=== PATIENT | female | born 1970 | race Caucasian/White ===

== ENCOUNTER → 2018-02-10 16:40 | Outpatient (CLI) | payer OTHER, SELFPAY ==
--- NOTE | 2018-02-10 16:42 | RAD_ITS ---
STUDY: X-RAY - ABDOMEN/PELVIS REASON FOR EXAM: Female, 48 years old. Abdominal pain for a couple weeks. TECHNIQUE: 2 views abdomen pelvis obtained, supine and upright projections. COMPARISON: None available. FINDINGS: Normal visualized lung bases. There is a nonobstructive nonspecific intestinal bowel gas pattern with no air-filled dilated small bowel loop, abnormal air-fluid level or findings of free intraperitoneal air identified including AP upright abdomen/pelvis projection. The visualized liver, spleen and kidneys are grossly normal in size and morphology. Tiny round smooth margin 0.27 cm diameter calcification is seen just lateral to the L1 right transverse process, may represent cholelithiasis or vascular calcification. Just lateral to the L3 right transverse process is an approximate 0.46 x 0.26 cm calcification. T-shaped IUD noted lower pelvis slightly left of midline. Normal appearing soft tissue structures. Normal visualized osseous structures. RAD/Abd Inc Decub and/or Erect IMPRESSION: Nonobstructed nonspecific visualized intestinal gas pattern. Tiny calcifications right lateral to the L1 right transverse process within the right upper quadrant, may represent cholelithiasis or vascular calcification. Clinical correlation recommended. L3 right transverse process as described, cannot exclude nephrolithiasis/ureterolithiasis versus vascular calcification without clinical correlation. Small IUD is described. Electronically Signed: Herbie Palma, at 16:49 EDT Tel , Service support ,
== END ==
PROVIDERS: Family Provider Family Medicine; PCP Family Medicine; Visit Provider Family Medicine
DX: R10.30 Lower abdominal pain, unspecified (principal)
CPT/HCPCS: 74019

== ENCOUNTER → 2018-02-14 11:17 | Outpatient (CLI) | payer OTHER, SELFPAY ==
--- NOTE | 2018-02-14 10:45 | EMB_PTH ---
PATIENT: KIMMY TODD LOC: [facility]#:[id number] AGE/SX: 55/F ROOM: RE02/14/[address]: Dr. Kerri Kearney MD : 1970 BED: DIS: SPEC #: [id number] RECD: 02/14/18 12:14 STATUS: ROMEL HOLLYOneil #: [id number] KAYCEE: 02/14/18 10:[address]: Kerri Acosta DEPT: SURGICAL PATHOLOGY RECD BY: Alirio Rinaldi ENTERED: 02/14/18 12:17 SP TYPE: ENDOM BX/C ROBYN DR: Dr. Caitlin Eduardo MD Tissues: Endometrium, NOS Procedures: Surgery Specimen Level IV HEADER OPERATION: EMBX PRE-OP DIAGNOSIS: AULara, LMP 02/06/18, ParaGard TISSUE SUBMITTED: EMBX MICROSCOPIC DIAGNOSIS Endometrial biopsy: Mildly disordered proliferative endometrium. Chronic endometritis. Fragments of benign ecto- and endocervical epithelium with acute and chronic inflammation and squamous metaplasia. ANKUR:ashley 02/17/18 MICROSCOPIC DESCRIPTION Slides are reviewed. GROSS DESCRIPTION Received in fixative is one container labeled with the patient's name and designated EM biopsy. The specimen consists of multiple fragments of hemorrhagic soft tissue that in aggregate measure 2.5 x 1 x 0.1 cm. The specimen is totally submitted in one cassette. / ANKUR:ashley 02/14/18 TC:5 CPT: 12920
== END ==
PROVIDERS: Family Provider Family Medicine; PCP Family Medicine; Visit Provider Obstetrics & Gynecology
DX: N93.9 Abnormal uterine and vaginal bleeding, unspecified (principal)
CPT/HCPCS: 88305

== ENCOUNTER → 2018-10-16 16:45 | Outpatient (CLI) | payer OTHER, SELFPAY ==
[2018-10-22 14:22] LABS: HPV APTIMA, High Risk Negative (Negative)
--- OUTSIDE RECORDS SUMMARY | 2018-12-12 06:32 | XMS RPT_ITS ---
:1970 Author Organization [facility] Care Team Providers Name Role Phone Caitlin Eduardo Attending Unavailable Caitlin Eduardo Referring Unavailable Caitlin Eduardo Primary Care Unavailable Caitlin Eduardo Attending Unavailable Caitlin Eduardo Referring Unavailable Caitlin Eduardo Primary Care Unavailable Kerri Amaya Attending Unavailable Caitlin Eduardo Primary Care Unavailable Kerri Amaya Attending Unavailable PROBLEMS PROBLEMS DATE TYPE CONDITION / CODE ATTENDING STATUS SOURCE 10/17/2018 Unknown Z12.4 - Martha Amaya Eugeen Encounter for summer screening for Hospital malignant Repository neoplasm of cervix / Z12.4(ICD-10) 12/10/2017 Unknown M79.604 - Pain Caitlin Eduardo Active [place] in right leg / Community M79.604(ICD-10) Hospital Repository PROCEDURES PROCEDURES No Procedure Records FoundRESULTS RESULTS PAP IG HPV APTIMA Collected: 10/16/2018 Status: F Source: [place] 16/18,45 4:45 PM [facility] REPOSITORY Order Comment: CYTOLOGY INFORMATION: - CLINICAL INFORMATION: - DATE LMP/MENOPAUSE: 10/02/18 LMP - COLLECTION VIAL: Thin Prep Vial - LETTER CARRIER SOURCE: CERVICAL/ENDOCERVICAL - COLLECTION TECHNIQUE: BRUSH/SPATULA Specimen Comment: [id number] Specimen Comment: Source.............Cervix;Endocervix Specimen Comment: LMP / Prev Treat...[id number] Specimen Comment: No. of containers..01 ThinPrep Vial TYPE CODE TESTS RESULT OUT OF RANGE REFERENCE UNITS LAB L7400.0800 . Normal DIAGN Comment Result Comment: NEGATIVE FOR INTRAEPITHELIAL LESION AND MALIGNANCY. THIS SPECIMEN WAS RESCREENED PART OF OUR KETTLE HAND PROGRAM. LAB L7400.0900 . Normal ADEQ Comment Result Comment: Satisfactory for evaluation. Endocervical and/or squamous metaplastic cells (endocervical component) are present. LAB L7400.1400 . Normal PERFORM Comment Result Comment: Makayla Banegas, Sales Consultant (ASCP) LAB L7400.1500 . Normal QC Comment REV Result Comment: Arelis Rangel, Supervisory Sales Consultant (ASCP) LAB L7400.2575 . Normal TEST METHOD Comment Result Comment: This liquid based ThinPrep(R) pap test was screened with the use of an image guided system. LAB L7400.2600 . Normal . COMM LAB L7400.2700 . Normal PAPSMR Comment Result Comment: The Pap smear is a screening test designed to aid in the detection of premalignant and malignant conditions of the uterine cervix. It is not a diagnostic procedure and should not be used as the sole means of detecting cervical cancer. Both false-positive and false-negative reports do occur. LAB L7400.2760 Negative Normal HPV APTIMA, Negative HR Result Comment: This test detects fourteen high-risk HPV types (16/18/31/33/35/39/45/ 51/52/56/58/59/66/68) without differentiation. Performed at: [address] [id number] Counterintelligence Specialist: Jazlyn Kaur MD, Phone: [phone] Performed at: =G - [facility] [place] [address] [id number] Counterintelligence Specialist: Jazlyn Kaur MD, Phone: [phone] Performed By: #### L7400.0280 #### [facility] (refer to report for specific site) refer to report for address and phone number PROGRESS Observed: 09/15/2018 Status: COMPLETED Source: [place] 6:55 PM [facility] REPOSITORY HNO ID: [id number] Author: Samina (Porter) Diamond Service: (none) Author Type: Nurse Practitioner Type: Progress Notes Filed: 09/15/2018 6:57 PM Note Text: This note was created using [email or web address]. Subjective Mirna Todd is a 48 year old female. The history is provided by the patient. Sore Throat This is a new problem. Episode onset: several weeks. The problem has been gradually worsening. Neither side of throat is experiencing more pain than the other. There has been no fever. Associated symptoms include swollen glands (tender on left side). Pertinent negatives include no congestion, coughing, ear pain or hoarse voice. She has had no exposure to strep. She has tried NSAIDs (claritin) for the symptoms. The treatment provided no relief. Review of Systems Constitutional: Negative for chills and fever. HENT: Positive for postnasal drip and sore throat. Negative for congestion, ear pain and hoarse voice. Respiratory: Negative for cough. Cardiovascular: Negative for chest pain. Allergic/Immunologic: Negative for immunocompromised state. Hematological: Positive for adenopathy (tender on left side). Objective BP 110/70 Pulse 74 Temp 36.8 ?C (98.2 ?F) (Tympanic) Resp 16 Wt 61.7 kg (136 lb) Physical Exam Constitutional: She is oriented to person, place, and time. HENT: Right Ear: Tympanic membrane and ear canal normal. Left Ear: Tympanic membrane and ear canal normal. Nose: Nose normal. Mouth/Throat: Uvula is midline and mucous membranes are normal. Posterior oropharyngeal erythema (mild with cobblestoning) present. Cardiovascular: Normal rate, regular rhythm and normal heart sounds. Pulmonary/Chest: Effort normal and breath sounds normal. Lymphadenopathy: She has no cervical adenopathy. Neurological: She is alert and oriented to person, place, and time. Skin: Skin is warm and dry. Nursing note and vitals reviewed. Assessment and Plan 1. Sore throat Negative rapid test. Discussed symptoms likely allergy/environmental due to length of time. Continue claritin, add on Nasacort. If still no improvement in 1-2 weeks, see PCP for further evaluation. Warm salt water gargles, throat lozenges/sprays, Increased fluids, rest. Pt in agreement, verbalized understanding. - RAPID STREP TEST B/O PROGRESS Observed: 09/15/2018 Status: COMPLETED Source: [place] 6:48 PM [facility] REPOSITORY HNO ID: [id number] Author: aSmina Dobson) Diamond Service: (none) Author Type: Nurse Practitioner Type: Progress Notes Filed: 09/15/2018 6:57 PM Note Text: This note was created using [email or web address]. Subjective Mirna Todd is a 48 year old female. The history is provided by the patient. Sore Throat This is a new problem. Episode onset: 2-3 weeks. There has been no fever. Associated symptoms include swollen glands. Pertinent negatives include no congestion, coughing or ear pain. She has tried NSAIDs (claritin) for the symptoms. Review of Systems Constitutional: Negative for chills and fever. HENT: Positive for sore throat. Negative for congestion and ear pain. Respiratory: Negative for cough. Cardiovascular: Negative for chest pain. Allergic/Immunologic: Negative for immunocompromised state. Hematological: Negative for adenopathy. Objective BP 110/70 Pulse 74 Temp 36.8 ?C (98.2 ?F) (Tympanic) Resp 16 Wt 61.7 kg (136 lb) Physical Exam Assessment and Plan CNOV Observed: 09/15/2018 Status: COMPLETED Source: [place] 6:30 PM [facility] REPOSITORY Office Visit ([facility]) PEREZMIRNA ([id number]) 1970 F Date Time Provider Department 09/15/18 6:30 PM SAMINA FIELDS (PORTER) [facility] During your visit today, we recorded the following information about you: Temperature Pulse Respiration Blood pressure 98.2 degrees 74/minute 16/minute 110/70 Weight 61.7 kg Samina Fields APRN.CNP 09/15/2018 6:57 PM Signed This note was created using [email or web address]. Ramses Todd is a 48 year old female. The history is provided by the patient. Sore Throat This is a new problem. Episode onset: 2-3 weeks. There has been no fever. Associated symptoms include swollen glands. Pertinent negatives include no congestion, coughing or ear pain. She has tried NSAIDs (claritin) for the symptoms. Review of Systems Constitutional: Negative for chills and fever. HENT: Positive for sore throat. Negative for congestion and ear pain. Respiratory: Negative for cough. Cardiovascular: Negative for chest pain. Allergic/Immunologic: Negative for immunocompromised state. Hematological: Negative for adenopathy. Objective BP 110/70 Pulse 74 Temp 36.8 ?C (98.2 ?F) (Tympanic) Resp 16 Wt 61.7 kg (136 lb) Physical Exam Assessment and Plan Samina Fields APRN.CNP 09/15/2018 6:57 PM Signed This note was created using Cognovantter. Ramses Todd is a 48 year old female. The history is provided by the patient. Sore Throat This is a new problem. Episode onset: several weeks. The problem has been gradually worsening. Neither side of throat is experiencing more pain than the other. There has been no fever. Associated symptoms include swollen glands (tender on left side). Pertinent negatives include no congestion, coughing, ear pain or hoarse voice. She has had no exposure to strep. She has tried NSAIDs (claritin) for the symptoms. The treatment provided no relief. Review of Systems Constitutional: Negative for chills and fever. HENT: Positive for postnasal drip and sore throat. Negative for congestion, ear pain and hoarse voice. Respiratory: Negative for cough. Cardiovascular: Negative for chest pain. Allergic/Immunologic: Negative for immunocompromised state. Hematological: Positive for adenopathy (tender on left side). Objective BP 110/70 Pulse 74 Temp 36.8 ?C (98.2 ?F) (Tympanic) Resp 16 Wt 61.7 kg (136 lb) Physical Exam Constitutional: She is oriented to person, place, and time. HENT: Right Ear: Tympanic membrane and ear canal normal. Left Ear: Tympanic membrane and ear canal normal. Nose: Nose normal. Mouth/Throat: Uvula is midline and mucous membranes are normal. Posterior oropharyngeal erythema (mild with cobblestoning) present. Cardiovascular: Normal rate, regular rhythm and normal heart sounds. Pulmonary/Chest: Effort normal and breath sounds normal. Lymphadenopathy: She has no cervical adenopathy. Neurological: She is alert and oriented to person, place, and time. Skin: Skin is warm and dry. Nursing note and vitals reviewed. Assessment and Plan 1. Sore throat Negative rapid test. Discussed symptoms likely allergy/environmental due to length of time. Continue claritin, add on Nasacort. If still no improvement in 1-2 weeks, see PCP for further evaluation. Warm salt water gargles, throat lozenges/sprays, Increased fluids, rest. Pt in agreement, verbalized understanding. - RAPID STREP TEST B/O Referring Provider: SELF [200] Allergies As of Date: 09/15/2018 (No Known Allergies) Date Reviewed: 09/15/2018 Reviewed by: Samina Fields - Fully Assessed Reason for Visit: Sore Throat [200] Cmt: x 2 weeks using loratidine, left gland pain x today Primary Visit Diagnosis:Sore throat [J02.9] Order(s):RAPID STREP TEST B/O [8176319] Order #: [id number] Prescriptions as of 09/15/2018 Sig: PROGESTERONE MICRONIZED ORAL Take by mouth. PAROXETINE 20 MG TABLET Take 10 mg by mouth once carlo* CYCLOBENZAPRINE 10 MG TABLET Take 1 tablet by mouth three * Patient not taking: Reported on 09/15/2018 Problem List As Of Date 09/15/2018 Noted Resolved Cervico-occipital neuralgia of the right side [*INVALID FOR* Encounter Status:Closed by DIAMOND RAZA.SAMINA BUENROSTRO on 09/15/18 ENDOMETRIAL BX/CURETTINGS Observed: 02/14/2018 Status: F Source: [place] 10:45 AM [facility] REPOSITORY Patient: MIRNA TODD : 1970 (48/F) Acct Num: [id number] Phys: Jose Luis CUEVAS,Summer Unit Num: [id number] Loc: [place] Specimen: [id number] Received: 02/14/18 - 1214 Spec Type: ENDOM BX/C TISSUES TISSUES: Endometrium, NOS GROSS DESCRIPTION Received in fixative is one container labeled with the patient's name and designated EM biopsy. The specimen consists of multiple fragments of hemorrhagic soft tissue that in aggregate measure 2.5 x 1 x 0.1 cm. The specimen is totally submitted in one cassette. / SJ:ashley 02/14/18 TC:5 CPT: 52256 HEADER OPERATION: EMBX PRE-OP DIAGNOSIS: AUB, LMP 02/06/18, ParaGard TISSUE SUBMITTED: EMBX MICROSCOPIC DESCRIPTION Slides are reviewed. MICROSCOPIC DIAGNOSIS Endometrial biopsy: Mildly disordered proliferative endometrium. Chronic endometritis. Fragments of benign ecto- and endocervical epithelium with acute and chronic inflammation and squamous metaplasia. SJ:ashley 02/17/18 Signed Byron Carlson 02/17/18 <signature on file> Performed By: #### PEMB #### [facility] [address] [place], [address] ABD INC DECUB Observed: 02/10/2018 Status: F Source: [place] AND/OR ERECT 4:42 PM [facility] REPOSITORY [facility] Imaging Services [address] [place] [address] Abd Inc Decub and/or Erect MR#: [id number] Acct: [id number] Name: MIRNA TODD Rep #: [id number] : 1970 F 48 From: Herbie Palma MD PCP: Caitlin Eduardo MD Status: REG CLI Study: Abd Inc Decub and/or Erect Date of Exam: 02/10/18 Exam# [id number] Ordering Dr: Caitlin Eduardo MD STUDY: X-RAY - ABDOMEN/PELVIS REASON FOR EXAM: Female, 48 years old. Abdominal pain for a couple weeks. TECHNIQUE: 2 views abdomen pelvis obtained, supine and upright projections. COMPARISON: None available. FINDINGS: Normal visualized lung bases. There is a nonobstructive nonspecific intestinal bowel gas pattern with no air-filled dilated small bowel loop, abnormal air-fluid level or findings of free intraperitoneal air identified including AP upright abdomen/pelvis projection. The visualized liver, spleen and kidneys are grossly normal in size and morphology. Tiny round smooth margin 0.27 cm diameter calcification is seen just lateral to the L1 right transverse process, may represent cholelithiasis or vascular calcification. Just lateral to the L3 right transverse process is an approximate 0.46 x 0.26 cm calcification. T-shaped IUD noted lower pelvis slightly left of midline. Normal appearing soft tissue structures. Normal visualized osseous structures. RAD/Abd Inc Decub and/or Erect IMPRESSION: Nonobstructed nonspecific visualized intestinal gas pattern. Tiny calcifications right lateral to the L1 right transverse process within the right upper quadrant, may represent cholelithiasis or vascular calcification. Clinical correlation recommended. L3 right transverse process as described, cannot exclude nephrolithiasis/ureterolithiasis versus vascular calcification without clinical correlation. Small IUD is described. Electronically Signed: Herbie Palma, at 16:49 EDT Tel , Service support , CC: Caitlin Eduardo MD Coat Cutter: Signed TIBIA AND FIBULA Observed: 12/10/2017 Status: F Source: [place] 2 VIEWS 4:07 PM [facility] REPOSITORY [facility] Imaging Services [address] [place] [address] Tibia AND Fibula 2 Views MR#: [id number] Acct: [id number] Name: MIRNA TODD Rep #: [id number] : 1970 F 47 From: Yosef Ridley DO PCP: Alesha CUEVAS,Caitlin Status: REG CLI Study: Tibia AND Fibula 2 Views Date of Exam: 12/10/17 Exam# [id number] Ordering Dr: Caitlin Eduardo MD STUDY: X-RAY - RIGHT TIBIA AND FIBULA REASON FOR EXAM: Female, 47 years old. Pain TECHNIQUE: 2 view(s) of the tibia and fibula were obtained. COMPARISON: None. FINDINGS: Normal visualized tibia. Normal visualized fibula. The soft tissue structures are unremarkable. RAD/Tibia AND Fibula 2 Views IMPRESSION: Normal x-ray examination of the tibia and fibula. Electronically Signed: Yosef Ridley DO at 21:33 EST Tel [phone], Service support , CC: Caitlin Eduardo MD Coat Cutter: Signed ALLERGIES ALLERGIES DATE TYPE / CODE NAME / CODE REACTION SEVERITY SOURCE 07/18/2014 Drug No Known Unknown [facility] Allergy/416 Allergies/E13350 Hospital 846043(SNOM 0388(RXNORM) Repository ED CT) Drug NO KNOWN [facility] Class/29830 ALLERGIES [facility] 1003(SNOMED Repository CT) ENCOUNTERS ENCOUNTERS ADMIT/DISCHARGE ACCOUNT ADMITTING ENCOUNTER LOCATION SOURCE NUMBER CLASS 10/16/2018 [id number] [facility] ing:LABSPEC Repository 09/15/2018/09/17/20 [id number] [address]ulatory [address] Repository 02/14/2018 [id number] [facility] ing:US Repository 02/10/2018 [id number] [facility] ing:MTRAD Repository 12/10/2017 [id number] [facility] ing:MTRAD Repository PAYERS PAYERS ENCOUNTER GUARANTOR PAYER SUBSCRIBER SOURCE 10/16/2018 MIRNA (KIMMY) Primary MIRNA (KIMMY) [place] [id number] Insurance:AETNAPolicy A MEININGERDOB: [facility] [place]: [id number] [id number] Repository 29313Mnt: (330) Date:[id number] [phone] (HP) [id number] MASSEY [address]BR: 10/16/2018 Secondary NOT GIVENUNK [place] Insurance:SELF PAY [facility] Number: Effective Repository Date:2018-10-16 02/14/2018 MIRNA A Primary MIRNA A [place] [id number] Insurance:AETNAPolicy MEININGERDOB: [facility] Number: [id number] [id number] Repository [address]Ghe: (330) Date:8415-89-61PW [phone] (HP) [id number] CHARISSA JOSHUA [address]CI: 02/14/2018 Secondary NOT GIVENUNK [place] Insurance:SELF PAY [facility] Number: Effective Repository Date:2018-02-10 02/10/2018 MIRNA A Primary MIRNA A [place] [id number] Insurance:AETNAPolicy MEININGERDOB: [facility] Number: [id number] [id number] Repository [address]Rzn: (330) Date:2801-64-11MX [phone] (HP) [id number] CHARISSA JOSHUA [address]SQ: 02/10/2018 Secondary NOT GIVENUNK [place] Insurance:SELF PAY [facility] Number: Effective Repository Date:2018-02-10 12/10/2017 Mirna A Primary KIMMY A [place] [id number] Insurance:AETNAPolicy MEININGERDOB: [facility] Number: [id number], [place] [id number] Repository [address]Lms: (330) Date:[id number] [phone] (HP) [id number] CHARISSA JOSHUA [address]IY: 12/10/2017 Secondary NOT GIVENUNK [place] Insurance:[facility]LF [facility]Y [facility]: Effective Repository Date:2017-12-10
== END ==
PROVIDERS: Visit Provider Obstetrics & Gynecology
DX: Z12.4 Encounter for screening for malignant neoplasm of cervix (principal)
CPT/HCPCS: 87624; 88175; G0145

== ENCOUNTER → 2019-10-29 14:28 | Outpatient (CLI) | payer OTHER, SELFPAY ==
--- NOTE | 2019-10-29 14:36 | BI_ITS ---
MAMMOGRAPHY - BILATERAL SCREENING REASON FOR EXAM: Female, 49 years old. Routine annual screening examination. PERTINENT HISTORY: Non-contributory. TECHNIQUE: Digital bilateral breast leena (3D mammographic acquisition) in the CC and MLO projections. 2-D mediolateral oblique (MLO) and craniocaudad (CC) views of both breasts were obtained. CAD: Full Field Digital Mammography with Computer Added Detection was performed. COMPARISON: Comparison is made with prior examination dated August 29, 2016 and June 24, 2012. FINDINGS: Breast Composition: The breasts are extremely dense, which lowers the sensitivity of mammography. There are no dominant masses or suspicious calcifications. No other significant abnormalities are identified. There has been no significant change since the prior study. BI/SCREEN MAMM (CAD) W/LEENA BILAT IMPRESSION: Stable bilateral screening mammogram. Yearly follow-up mammogram recommended. (A) ASSESSMENT CATEGORY: BIRADS Category 1: Negative. A letter regarding these results will be sent to the patient by the facility within 30 days. Approximately 10% of breast cancers are not detected by mammography. A normal mammogram should not delay biopsy of a clinically suspicious abnormality. [id number] Electronically Signed: Duy Fiore, at 15:40 EST , Service support ,
== END ==
PROVIDERS: Referring Provider Obstetrics & Gynecology; Visit Provider Obstetrics & Gynecology
DX: Z12.31 Encounter for screening mammogram for malignant neoplasm of breast (principal)
CPT/HCPCS: 77063; 77067

== ENCOUNTER → 2020-12-15 12:36 | Outpatient (CLI) | payer OTHER, SELFPAY ==
--- NOTE | 2020-12-15 12:38 | BI_ITS ---
MAMMOGRAPHY - BILATERAL SCREENING REASON FOR EXAM: Female, 50 years old. Routine annual screening examination. PERTINENT HISTORY: Non-contributory. TECHNIQUE: Digital bilateral breast leena (3D mammographic acquisition) in the CC and MLO projections. 2-D mediolateral oblique (MLO) and craniocaudad (CC) views of both breasts were obtained. CAD: Full Field Digital Mammography with Computer Added Detection was performed. COMPARISON: Comparison is made with prior study dated 10/29/2019 and 08/29/2016. FINDINGS: Breast Composition: The breasts are extremely dense, which lowers the sensitivity of mammography. There are no dominant masses or suspicious calcifications. No other significant abnormalities are identified. There has been no significant change since the prior study. BI/SCRN MAMM (CAD)W/LEENA BILAT IMPRESSION: Stable bilateral screening mammogram. Yearly follow-up mammogram recommended. (A) ASSESSMENT CATEGORY: BIRADS Category 1: Negative. A letter regarding these results will be sent to the patient by the facility within 30 days. Approximately 10% of breast cancers are not detected by mammography. A normal mammogram should not delay biopsy of a clinically suspicious abnormality. [id number] Electronically Signed: Duy Fiore MD at 13:26 EST , Service support ,
== END ==
PROVIDERS: PCP Family Medicine; Referring Provider Family Medicine; Visit Provider Family Medicine
DX: Z00.00 Encounter for general adult medical examination without abnormal findings (principal); Z12.31 Encounter for screening mammogram for malignant neoplasm of breast
CPT/HCPCS: 77063; 77067

== ENCOUNTER → 2021-11-03 08:59 | Outpatient (CLI) | payer OTHER, SELFPAY ==
--- NOTE | 2021-11-03 09:22 | BI_ITS ---
MAMMOGRAPHY - BILATERAL DIAGNOSTIC REASON FOR EXAM: Female, 51 years old. Questionable palpable abnormality in the left axillary region. PERTINENT HISTORY: Non-contributory. TECHNIQUE: Digital bilateral breast gyae (3D mammographic acquisition) in the CC and MLO projections. 2-D mediolateral oblique (MLO) and craniocaudad (CC) views of both breasts were obtained. CAD: Full Field Digital Mammography with Computer Added Detection was performed. COMPARISON: Comparison is made with prior study dated 12/15/2020 and 10/29/2019. FINDINGS: Breast Composition: The breasts are extremely dense, which lowers the sensitivity of mammography. There are no dominant masses or suspicious calcifications. No other significant abnormalities are identified. There has been no significant change since the prior study. BI/DIAG MAMM W/CAD, BILAT IMPRESSION: Stable bilateral diagnostic mammogram. With the patient''s history of a palpable lump in the left axillary region, correlation with ultrasound is recommended. ASSESSMENT CATEGORY: BIRADS Category 0: Incomplete. Need additional imaging evaluation. A letter regarding these results will be sent to the patient by the facility within 30 days. Approximately 10% of breast cancers are not detected by mammography. A normal mammogram should not delay biopsy of a clinically suspicious abnormality. Electronically Signed: Duy Fiore MD at 15:00 EST , Service support ,
--- NOTE | 2021-11-03 10:55 | US_ITS ---
STUDY: ULTRASOUND BREAST - RIGHT REASON FOR EXAM: Female, 51 years old. Right axillary lump. TECHNIQUE: Axial and longitudinal images of the RIGHT breast were performed with a high resolution ultrasound transducer. # OF IMAGES: 29 COMPARISON: Comparison is made with prior mammogram done earlier in the day. FINDINGS: RIGHT Breast: The right axillary region was examined by ultrasound. There are 3 small benign-appearing lymph nodes. The larger measures 1 cm x 0.5 cm x 0.3 cm. US/Breast Limited Unilateral IMPRESSION: There are 3 small benign-appearing lymph nodes in the right axilla. ASSESSMENT CATEGORY: BIRADS Category 2: Benign. A letter regarding these results will be sent to the patient by the facility within 30 days. Electronically Signed: Duy Fiore MD at 13:24 EST , Service support ,
== END ==
PROVIDERS: PCP Family Medicine; Referring Provider Nurse Practitioner Family; Visit Provider Nurse Practitioner Family
DX: R59.0 Localized enlarged lymph nodes (principal)
CPT/HCPCS: 76642; 77062; 77066; G0279

== ENCOUNTER 2022-02-16 16:15 | Outpatient (CLI) | payer OTHER, SELFPAY ==
[2022-02-27 16:09] LABS: HPV APTIMA, High Risk Negative (Negative)
== END 2022-02-16 23:59 | disposition home or self-care (01) ==
LOC: LABSPEC 16:16
PROVIDERS: PCP Family Medicine; Visit Provider Obstetrics & Gynecology
DX: Z12.4 Encounter for screening for malignant neoplasm of cervix (principal)
CPT/HCPCS: 87624; 88175; G0145

== ENCOUNTER 2022-05-12 21:24 | Emergency (ER) | payer OTHER, SELFPAY ==
[2022-05-12 21:24] VITALS: BP 147/80; PULSE 88; RESP 16; TEMP 36.6; O2SAT 100; BMI 20.9
--- NOTE | 2022-05-12 21:51 | EX.ED.DYSGE1 ---
HPI History of Present Illness Chief Complaint: Foreign Body Informant: patient Onset/Context/Timing Onset: Today Context: Sudden Onset Timing: Continuous Quality: Irritation Location: Throat Worsened by: Anxiety Relieved by: Nothing Narrative Narrative: Patient presents with possible aspiration that occurred tonight. Patient states she was eating corn on the cob and accidentally inhaled while she was eating. Patient thinks a piece of corn went into her trachea. Patient states she has some irritation in her throat. Patient states her voice became hoarse. Patient states her anxiety made her symptoms worse. Patient states nothing makes it better. Patient admits to a cough. Patient states she is starting to cough up some mucus. Patient denies any fevers or chills. Patient denies any chest pain or shortness of breath. [facility] Medical History (Updated 05/12/22 @ 22:[address] Mark Cedillo DO) Anxiety Headache, migraine Medical History no medical history Home Medications NK 05/12/22 [History Last Taken Unknown] Allergy/AdvReac Type Severity Reaction Status Date / Time No Known Allergies Allergy Verified 05/12/22 21:26 Surgical History no surgical history no surgical history Social History Smoking Status: Current every day smoker tobacco type: cigarettes ROS ROS ED Constitutional Constitutional ED: Denies chills or fever(s) Eyes Eyes: Denies blurry vision or change in vision ENT ENT ED: Reports sore throat; Denies rhinorrhea Cardiovascular Cardiovascular: Denies chest pain or palpitations Respiratory/Chest Respiratory/Chest: Reports cough; Denies dyspnea Gastrointestinal Gastrointestinal: Denies nausea or vomiting Genitourinary Genitourinary ED: Denies dysuria or hematuria Musculoskeletal Musculoskeletal: Denies back pain or neck pain Integumentary Denies abscess or rash Neurologic Neurologic: Denies headache(s) or weakness Psychiatric Psychiatric: Reports anxiety Allergic/Immunologic Allergic/Immunologic ED: Denies mouth swelling or urticaria EXAM Physical Exam Const Vital Signs: 05/12/22 21:24 05/12/22 21:37 Temperature 97.8 F Temperature Source Temporal Pulse Rate 88 Respiratory Rate 16 Respiratory Pattern Normal Blood Pressure 147/80 H Blood Pressure Mean 102 Pulse Ox 100 Oxygen Delivery Method Room Air Positive well nourished and well developed General Appearance ED: well developed HEENT Reports moist mucous membranes HEENT Narrative: Oropharynx is clear. Airway is patent. Neck supple and no JVD Resp normal respiratory effort and clear to auscultation bilaterally Cardio regular rate, regular rhythm and no murmurs GI normal to inspection, nondistended, normoactive bowel sounds and non-tender Palpation: soft Extremity normal to inspection General Extremety ED: Negative for edema or tenderness General Extremity: Negative for edema Neuro oriented x3, CN's II-XII intact bilaterally and no sensory deficits noted Sensorium / Orientation: alert Motor Exam: strength 5/5 throughout Psych mental status grossly normal Skin no rashes or lesions noted MDM MDM MDM Narrative Medical decision making narrative: PA and lateral chest x-ray was obtained. There are 3 views. On my interpretation, there is no acute infiltrate. There is no pneumothorax. Bony thorax is normal. There is no cardiomegaly. Radiologist also interpreted the x-ray and agrees. Patient is feeling better on reevaluation. Patient was advised of her findings. Patient was instructed to follow-up with her primary care physician in 5 to 7 days. Patient was instructed return if worse in any way. Patient understood and was agreeable with the plan. All questions were answered. Radiography Chest X-Ray - ED: 2 View, Read by ED Physician, Read by Radiologist and No Acute Disease Diagnostic Testing: Clinical Impression(s) from Imaging Studies Chest X-Ray 05/12/22 22:01 IMPRESSION: Normal x-ray examination of the chest. Electronically Signed: Alirio Erwin MD at 22:13 EDT Reading Location ID and State: [address] [place] [address] Tel , Service support , Discharge Plan Triage Chief Complaint: Foreign Body ED Provider: Mark Cedillo Dx/Rx/DC Orders Clinical Impression: Dysphagia Instructions: ED Dysphagia (Adult) Prescriptions: No Action NK Primary Care Provider: Caitlin Eduardo Referrals: Caitlin Eduardo MD [Primary Care Provider] - 5-7 Days Disposition Disposition: Home, Self Care
--- NOTE | 2022-05-12 22:01 | RAD_ITS ---
STUDY: X-RAY CHEST REASON FOR EXAM: Female, 52 years old. Cough TECHNIQUE: PA and lateral views of the chest. COMPARISON: 07/18/2014 FINDINGS: The lungs are clear and expanded. There is no demonstrated pleural abnormality. Normal size heart. Normal mediastinum and virgen. Normal visualized pulmonary arteries. Normal visualized aortic arch and descending thoracic aorta. Normal visualized thoracic spine. Normal visualized ribs, clavicles, and shoulders. There is no demonstrated abnormality of the visualized soft tissue structures of the upper abdomen. RAD/Chest PA and Lateral IMPRESSION: Normal x-ray examination of the chest. Electronically Signed: Alirio Erwin MD at 22:13 EDT ,
[2022-05-12 22:56] VITALS: BP 132/74; PULSE 74; RESP 18; O2SAT 98
== END 2022-05-12 22:56 | disposition home or self-care (01) ==
PROVIDERS: Emergency Provider Emergency Medicine; PCP Family Medicine; Visit Provider Emergency Medicine
DX: R13.10 Dysphagia, unspecified (principal); F17.210 Nicotine dependence, cigarettes, uncomplicated
CPT/HCPCS: 71046; 99282

== ENCOUNTER 2023-01-10 22:55 | Emergency (ER) | payer OTHER, SELFPAY ==
[2023-01-10 22:56] VITALS: BP 143/90; PULSE 110; RESP 18; TEMP 36.3; O2SAT 100; BMI 21.7
--- NOTE | 2023-01-10 23:05 | EKG12_ITS ---
Test Reason : PALPATATIONS Blood Pressure : / mmHG Vent. Rate : 084 BPM Atrial Rate : 084 BPM P-R Int : 142 ms QRS Dur : 068 ms QT Int : 378 ms P-R-T Axes : 076 078 076 degrees QTc Int : 446 ms Normal sinus rhythm Normal ECG Confirmed by DONNA CUEVAS, HAYLEY ([id number]), associate entertainment editor SUYAPA IBARRA ([id number]) on 01/14/2023 11:27:21 AM Referred By: Confirmed By:HAYLEY THOMPSON MD
--- NOTE | 2023-01-10 23:27 | EDS_ITS ---
HPI History of Present Illness Chief Complaint: Palpitations Narrative Narrative: Patient is a 52-year-old female with past medical history of anxiety. She states she has been dealing with a cold for the past 5 to 7 days. She states that she was seen at urgent care and was tested for strep and also had a grandchild who was sick and was tested for COVID influenza RSV which were all negative. She states this evening she decided to take melatonin and a Vicks nighttime cough and cold medication. She states after doing this she began to feel her heart was racing which then she symptoms worse and with concern she could be having an abnormal heart rhythm or heart attack presents to the ER for evaluation. Patient denies any other ingestions than the [id number] cold and sleep medications [facility] Medical History (Updated 01/10/23 @ 23:[address] Bam Winters DO) Anxiety Headache, migraine Home Medications NK 05/12/22 [History Last Taken Unknown] Allergy/AdvReac Type Severity Reaction Status Date / Time No Known Allergies Allergy Verified 01/10/23 22:58 Social History Smoking Status: Current every day smoker tobacco type: cigarettes ROS ROS ED Constitutional Constitutional ED: Denies chills or fever(s) ENT ENT ED: Reports rhinorrhea and sore throat Cardiovascular Cardiovascular: Reports palpitations and racing heartbeat; Denies chest pain Respiratory/Chest Respiratory/Chest: Reports cough; Denies dyspnea Gastrointestinal Gastrointestinal: Denies abdominal pain, diarrhea, nausea or vomiting Genitourinary Genitourinary ED: Denies dysuria Musculoskeletal Musculoskeletal: Reports myalgias Integumentary Denies rash Neurologic Neurologic: Reports headache(s) Psychiatric Psychiatric: Reports anxiety; Denies suicidal ideation or suicidal thoughts Hematologic/Lymphatic Hematologic/Lymphatic: Denies easy bleeding or easy bruising EXAM Physical Exam Const Vital Signs: 01/10/23 22:56 Temperature 97.4 F L Temperature Source Temporal Pulse Rate 110 H Respiratory Rate 18 Blood Pressure 143/90 H Blood Pressure Mean 107 Pulse Ox 100 Oxygen Delivery Method Room Air Positive well nourished and well developed General Appearance ED: well developed HEENT Reports moist mucous membranes HEENT Narrative: There is cobblestoning the posterior pharynx consistent with sinus drainage without oral lesions tongue or lip swelling airway edema or compromise. No secondary changes to suggest infection in the posterior pharynx Eyes PERRL and EOMs intact bilaterally Neck supple Neck Narrative: Positive anterior cervical lymphadenopathy noted Resp normal respiratory effort and clear to auscultation bilaterally Cardio regular rate and regular rhythm Rate: other Other Details: Radial pulses are plus 2 out of 4 bilaterally are equal and symmetric Extremity normal to inspection Extremity Narrative: No asymmetric edema no pitting edema negative Homans' sign bilaterally Neuro oriented x3, CN's II-XII intact bilaterally and no sensory deficits noted Sensorium / Orientation: alert Psych Psych Narrative: Patient has a nervous/anxious affect without homicidal or suicidal ideations Skin no rashes or lesions noted MDM MDM MDM Narrative Medical decision making narrative: Patient presented to the ER to slightly tachycardic but her EKG showed normal sinus rhythm at 84 after she was allowed to relax for a few minutes. She reported heart racing and palpitations but her exam and EKG displayed normal sinus rhythm without ectopy or dysrhythmia. The patient reports taking a sleep medication as well as cough and cold medication which typically has a stimulant such as dextromethorphan pseudoephedrine or phenylephrine to help with decongestion. I feel this is the main culprit of her sensation which was worsened by her anxiety. At this time vitals are stable and EKG does not show any type of acute changes. We discussed possible blood work and IV hydration to rule out underlying electrolyte or blood volume cause as the cause of her symptoms. However patient states she feels much better at this time knowing her EKG is normal and would like to be discharged. Therefore as patient has stable vitals without signs of acute cardiac injury or dysrhythmia she is otherwise safe for discharge Discharge Plan Triage Chief Complaint: Palpitations ED Provider: Bam Winters Dx/Rx/DC Orders Clinical Impression: Palpitations, Adverse drug reaction, Acute upper respiratory infection Prescriptions: No Action NK Primary Care Provider: Caitlin Eduardo Referrals: Caitlin Eduardo MD [Primary Care Provider] - Activity Restrictions/Additional Instructions: Please continue to keep yourself well-hydrated and return to the ER should you have any further concerns. I do feel that your symptoms tonight were related to the stimulant which is typically using cold medication to reduce congestion. Therefore please limit this use as this could precipitate further bouts of palpitations. Disposition Disposition: Home, Self Care
== END 2023-01-11 00:16 | disposition home or self-care (01) ==
PROVIDERS: Emergency Provider Emergency Medicine; PCP Family Medicine; Visit Provider Emergency Medicine
DX: R00.2 Palpitations (principal); T48.905A Adverse effect of unspecified agents primarily acting on the respiratory system, initial encounter; J06.9 Acute upper respiratory infection, unspecified; F17.210 Nicotine dependence, cigarettes, uncomplicated
CPT/HCPCS: 93005; 99282

== ENCOUNTER → 2023-05-03 | Outpatient (CLI) | payer OTHER, SELFPAY ==
--- NOTE | 2023-05-03 07:03 | BI_ITS ---
MAMMOGRAPHY - BILATERAL SCREENING REASON FOR EXAM: Female, 53 years old. Routine annual screening examination. PERTINENT HISTORY: Non-contributory. TECHNIQUE: Digital bilateral breast leena (3D mammographic acquisition) in the CC and MLO projections. 2-D mediolateral oblique (MLO) and craniocaudad (CC) views of both breasts were obtained. CAD: Full Field Digital Mammography with Computer Added Detection was performed. COMPARISON: Comparison is made with prior study dated November 03, 2021 and December 15, 2020. FINDINGS: Breast Composition: The breasts are extremely dense, which lowers the sensitivity of mammography. There are no dominant masses or suspicious calcifications. No other significant abnormalities are identified. There has been no significant change since the prior study. BI/SCRN MAMM (CAD)W/LEENA BILAT IMPRESSION: Stable bilateral screening mammogram. Yearly follow-up mammogram recommended. (A) ASSESSMENT CATEGORY: BIRADS Category 1: Negative. A letter regarding these results will be sent to the patient by the facility within 30 days. Approximately 10% of breast cancers are not detected by mammography. A normal mammogram should not delay biopsy of a clinically suspicious abnormality. [id number] Electronically Signed: Duy Fiore MD at 8:31 EDT ,
== END | disposition home or self-care (01) ==
LOC: OPBI 07:01
PROVIDERS: PCP Family Medicine; Referring Provider Family Medicine; Visit Provider Family Medicine
DX: Z12.31 Encounter for screening mammogram for malignant neoplasm of breast (principal)
CPT/HCPCS: 77063; 77067

== ENCOUNTER 2023-07-31 09:47 | Emergency (ER) | payer OTHER, SELFPAY ==
[2023-07-31 09:48] VITALS: BP 134/97; PULSE 116; RESP 16; TEMP 36.4; O2SAT 100; BMI 20.5
--- NOTE | 2023-07-31 09:58 | EKG12_ITS ---
Test Reason : CHEST PAIN Blood Pressure : / mmHG Vent. Rate : 084 BPM Atrial Rate : 084 BPM P-R Int : 128 ms QRS Dur : 070 ms QT Int : 356 ms P-R-T Axes : 073 082 066 degrees QTc Int : 420 ms Normal sinus rhythm Septal infarct , age undetermined Abnormal ECG Confirmed by DONNA CUEVAS, HAYLEY ([id number]), editor greeting card NEGRITA SUAREZ ([id number]) on 08/01/2023 1:11:52 PM Referred By: BERNADINE Confirmed By:HAYLEY THOMPSON MD
--- NOTE | 2023-07-31 09:59 | EDS_ITS ---
HPI History of Present Illness Chief Complaint: Chest Pain Narrative Narrative: 53-year-old female presenting with chest pain. She states this started last evening around 830. She describes it as a dull ache. Starts in the anterior chest and radiates to the left shoulder blade. Patient denies shortness of breath, lightheadedness. She had nausea last night. She is taken a couple doses of ibuprofen which seems to help with the pain but it is come back. Patient states has had the pain few more times today. Once at 3 AM and currently is having pain about 5/10 which is dull and aching. He had history. She denies any lung problems. Patient states he has not had any fevers or chills. Patient has no DVT/PE history or risk factors. [facility] Medical History Anxiety Headache, migraine Home Medications NK 05/12/22 [History Last Taken Unknown] Allergy/AdvReac Type Severity Reaction Status Date / Time No Known Allergies Allergy Verified 07/31/23 09:49 Social History Smoking Status: Current every day smoker tobacco type: cigarettes ROS ROS ED Constitutional Constitutional ED: Denies chills, fever(s) or sweats Eyes Eyes: Denies blurry vision or change in vision ENT ENT ED: Denies ear pain or sore throat Cardiovascular Cardiovascular: Reports chest pain; Denies palpitations or racing heartbeat Respiratory/Chest Respiratory/Chest: Denies cough, dyspnea or sputum Gastrointestinal Gastrointestinal: Reports nausea; Denies abdominal pain, constipation, diarrhea or vomiting Genitourinary Genitourinary ED: Denies dysuria, hematuria or urinary frequency Musculoskeletal Musculoskeletal: Denies arthralgias, myalgias or neck pain Integumentary Denies abscess, Abrasions or rash Neurologic Neurologic: Denies headache(s), paresthesias or weakness Psychiatric Psychiatric: Denies anxiety, depression, suicidal ideation or suicidal thoughts Endocrine Endocrinology: Denies polydipsia or polyuria EXAM Physical Exam Const Vital Signs: 07/31/23 09:48 07/31/23 10:24 07/31/23 12:33 Temperature 97.5 F L Temperature Source Temporal Pulse Rate 116 H 81 Respiratory Rate 16 16 Blood Pressure 134/97 H 129/74 H Blood Pressure Mean 109 92 Pulse Ox 100 97 Oxygen Delivery Method Room Air Room Air Room Air Positive well nourished General Appearance ED: NAD HEENT Reports moist mucous membranes normocephalic and atraumatic Eyes PERRL and EOMs intact bilaterally Chest Wall inspection of chest normal Chest Narrative: Producible chest wall pain. No pain with range of motion. Resp normal respiratory effort and clear to auscultation bilaterally Auscultation: Negative for rales, rhonchi or wheezes Cardio regular rhythm Rate: tachycardic GI normal to inspection, nondistended, normoactive bowel sounds Neuro oriented x3 and CN's II-XII intact bilaterally Sensorium / Orientation: awake and alert Motor Exam: strength 5/5 throughout Psych mental status grossly normal Skin no rashes or lesions noted MDM MDM MDM Narrative Medical decision making narrative: Patient presenting with chest pain since last evening. Is coming on a couple of times. She describes it as aching and radiating to her left shoulder blade from the center of her chest. There is no sharp pleuritic component. Patient low risk for PE however she is tachycardic and I cannot use the PERC rule. Includes acute coronary syndrome, pneumonia, PE, costochondritis, gastritis, pancreatitis, PE. D-dimer will be obtained. CBC will be obtained to assess white blood cell count, hemoglobin, platelets. BMP to assess renal function, electrolytes. To assess liver function. Lipase to assess for pancreatitis. High-sensitivity troponin rule out ischemia and dysrhythmia. Chest x-ray to rule out pneumonia. Medicated with nitroglycerin and given 325 mg of aspirin. EKG on my interpretation shows a normal sinus rhythm with a ventricular rate of 84 bpm without sign of ischemia or ectopy. CBC is unremarkable. BMP shows a nonspecific elevation in total bilirubin at 1.90 and direct bilirubin 8.37. Patient does not have any pain over the epigastrium or the right upper quadrant. STEMI troponin is less than 3 and delta troponin is 4. There is no significant interval change. Chest x-ray my interpretation shows no acute process. Patient on all findings. She stable for discharge. Return precautions were discussed. Impression: 1. Chest pain Lab Data Labs: Laboratory Results - last 24 hr 07/31/23 07/31/23 10:18 12:31 WBC 5.1 RBC 4.42 Hgb 13.9 Hct 42.4 MCV 95.9 MCH 31.4 MCHC 32.8 RDW Std Deviation 45.6 H RDW Coeff of Dandre 12.8 Plt Count 241 MPV 9.1 Immature Gran % (Auto) 0.400 Neut % (Auto) 60.9 Lymph % (Auto) 28.3 [place] % (Auto) 8.0 Eos % (Auto) 1.6 Baso % (Auto) 0.8 Absolute Neuts (auto) 3.1 Absolute Lymphs (auto) 1.45 Nucleated RBC % 0 D-Dimer Quant (PE/DVT) < 0.27 L Sodium 140 Potassium 4.2 Chloride 107 Carbon Dioxide 29.0 Anion Gap 4 L BUN 15 Creatinine 0.95 Estim Creat Clear Calc 62.28 Est GFR (MDRD) Af Amer 79 Est GFR (MDRD) Non-Af 65 BUN/Creatinine Ratio 15.8 Glucose 114 H Calcium 9.2 Total Bilirubin 1.90 H Direct Bilirubin 0.37 H AST 18 ALT 29 Alkaline Phosphatase 63 Troponin I High Sens < 3 L 4 Total Protein 7.2 Albumin 4.1 Globulin 3.1 Lipase 57 Radiography Diagnostic Testing: Clinical Impression(s) from Imaging Studies Chest X-Ray 07/31/23 10:40 IMPRESSION: Normal x-ray examination of the chest. Electronically Signed: Duy Fiore MD at 10:58 EDT , Discharge Plan Triage Chief Complaint: Chest Pain ED Provider: Aroldo Gordon Dx/Rx/DC Orders Instructions: ED Chest Pain, Noncardiac Prescriptions: No Action NK Primary Care Provider: Caitlin Eduardo Referrals: Caitlin Eduardo MD [Primary Care Provider] - Disposition Disposition: Home, Self Care Discharge Date/Time: 07/31/23 13:30
[2023-07-31 10:27] LABS: Absolute Lymphocyte Count 1.45 X10^3/uL (0.83-4.51); Absolute Neutrophil Count 3.1 X10^3/uL (2.0-7.7); Basophil# 0.04 X10^3/uL; Basophil% 0.8 % (0-1); Eosinophil# 0.08 X10^3/uL; Eosinophils% 1.6 % (0-5); Hematocrit 42.4 % (37-47); Hemoglobin 13.9 g/dL (12.0-15.0); Lymphocyte # 1.45 X10^3/ul (0.83-4.51); Lymphocyte % 28.3 % (19-41); Mean Corp Hgb Conc 32.8 g/dL (32-36); Mean Corpuscular Hgb 31.4 pg (27.0-32.0); Mean Corpuscular Volume 95.9 fL (81-99); Mean Platelet Vol. 9.1 fl (6.2-12.0); Monocyte# 0.41 X10^3/uL; NRBC Flagged by Analyzer 0 % (0-5); Neutrophil # 3.12 X10^3/uL (2.7-7.7); Neutrophil % 60.9 % (47-70); Platelet Count 241 K/mm3 (150-450); RBC Distribution Width CV 12.8 % (11.6-14.6); RBC Distribution Width SD 45.6 fl (35.1-43.9); Red Blood Count 4.42 M/mm3 (4.2-5.4); White Blood Count 5.1 K/mm3 (4.4-11.0)
--- NOTE | 2023-07-31 10:40 | RAD_ITS ---
STUDY: X-RAY CHEST REASON FOR EXAM: Female, 53 years old. Nausea and intermittent chest pain. TECHNIQUE: Single AP portable view of the chest. COMPARISON: Comparison is made with prior study dated May 12, 2022. FINDINGS: EKG electrodes are seen. The lungs are clear and expanded. There is no demonstrated pleural abnormality. Normal size heart. Normal mediastinum and virgen. Normal visualized pulmonary arteries. Normal visualized aortic arch and descending thoracic aorta. Normal visualized thoracic spine. Normal visualized ribs, clavicles, and shoulders. There is no demonstrated abnormality of the visualized soft tissue structures of the upper abdomen. RAD/Chest 1 View (Portable) IMPRESSION: Normal x-ray examination of the chest. Electronically Signed: Duy Fiore MD at 10:58 EDT ,
[2023-07-31 10:48] LABS: AST(SGOT) 18 U/L (15-37); Alanine Aminotransfer ALT/SGPT 29 U/L (13-56); Albumin, Serum 4.1 g/dL (3.2-5.0); Alkaline Phosphatase 63 U/L (45-117); Anion Gap 4 (5-15); BUN 15 mg/dL (7-18); BUN/Creat Ratio 15.8 RATIO (10-20); Bilirubin, Direct 0.37 mg/dL (0.00-0.30); Calcium,Total 9.2 mg/dL (8.5-10.1); Chloride 107 mmol/L (98-107); Creatinine, Serum 0.95 mg/dL (0.55-1.02); EST Glomerular Filtration Rate 65 mL/min (>60); Est Glom Filt Rate - Afr Amer 79 mL/min (>60); Estimated Creatinine Clearance 62.28 ml/min; Globulin 3.1 g/dL (2.2-4.2); Glucose 114 mg/dL (74-106); Lipase 57 U/L (13-75); Potassium 4.2 mmol/L (3.5-5.1); Protein, Total 7.2 g/dL (6.4-8.2); Sodium Level 140 mmol/L (136-145); Troponin-I HS (w/2H Reflex) < 3 pg/mL (3.0-54.0)
[2023-07-31] MEDS: Aspirin 81 MG TAB.CHEW 324 MG PO (10:56)
[2023-07-31 11:23] LABS: D-Dimer Quantitative (DVT/PE) < 0.27 FEU/ug/m (0.27-0.49)
[2023-07-31 12:24] LABS: Reflex Troponin-HS? (from REC) Y
[2023-07-31 12:33] VITALS: BP 129/74; PULSE 81; RESP 16; O2SAT 97
[2023-07-31 12:56] LABS: Troponin-I HS 4 pg/mL (3.0-54.0)
== END 2023-07-31 13:30 | disposition home or self-care (01) ==
PROVIDERS: Emergency Provider Student in an Organized Health Care Education/Training Program; PCP Family Medicine; Visit Provider Student in an Organized Health Care Education/Training Program
DX: R07.9 Chest pain, unspecified (principal); F17.210 Nicotine dependence, cigarettes, uncomplicated
CPT/HCPCS: 71045; 80048; 80076; 83690; 84484; 85025; 85379; 93005; 99285; A4216

== ENCOUNTER 2024-06-14 02:44 | Emergency (ER) | payer OTHER, SELFPAY ==
[2024-06-14 02:44] VITALS: BP 146/92; PULSE 111; RESP 18; TEMP 36.4; O2SAT 97; BMI 20.7
--- NOTE | 2024-06-14 03:24 | EDS_ITS ---
HPI History of Present Illness Chief Complaint: Abd Pain Informant: patient Narrative Narrative: Patient is a 54-year-old female who states she has been struggling with intermittent abdominal pain for multiple months to years. She states she was previously on a medication for bladder spasms that caused constipation and she became dependent on MiraLAX and other laxatives and suppositories to help with bowel movements. She states that she quit the bladder spasm medication but her intestinal symptoms never resolved. She states that secondary to the recurrent bouts of pain she was seen at an outside hospital recently and had blood work and a CT scan. She reports she was told that there are abnormalities on the CT scan and then discharged without any type of elaboration over her lab work or the abnormalities. She states since that time she has been extremely anxious afraid to eat and drink or take [id number] medications and she has been having difficulty sleeping. She reports she does have an appointment with GI but not for approximately 1 month and as she cannot get her anxiety under control comes in for evaluation [facility] Medical History Anxiety Headache, migraine Home Medications ?Medication ?Instructions ?Recorded ?Last Taken ?Type NK 05/12/22 Unknown History Allergy/AdvReac Type Severity Reaction Status Date / Time No Known Allergies Allergy Verified 06/14/24 02:49 Social History Smoking Status: Former smoker ROS ROS ED Constitutional Constitutional ED: Denies chills or fever(s) ENT ENT ED: Denies sore throat Cardiovascular Cardiovascular: Denies chest pain Respiratory/Chest Respiratory/Chest: Denies cough or dyspnea Gastrointestinal Gastrointestinal: Reports abdominal pain and constipation; Denies diarrhea, nausea or vomiting Genitourinary Genitourinary ED: Denies dysuria Musculoskeletal Musculoskeletal: Denies myalgias Integumentary Denies rash Neurologic Neurologic: Denies headache(s) Psychiatric Psychiatric: Reports anxiety Hematologic/Lymphatic Hematologic/Lymphatic: Denies easy bleeding or easy bruising EXAM Physical Exam Const Vital Signs: 06/14/24 02:44 Temperature 97.6 F L Temperature Source Temporal Pulse Rate 111 H Respiratory Rate 18 Blood Pressure 146/92 H Blood Pressure Mean 110 Pulse Ox 97 Oxygen Delivery Method Room Air Positive well nourished and well developed General Appearance ED: well developed; Negative for pallor HEENT HEENT Narrative: Normocephalic atraumatic Eyes PERRL and EOMs intact bilaterally General Eye ED: Negative for scleral icterus Neck supple Neck Narrative: No nuchal rigidity or meningeal signs Resp normal respiratory effort and clear to auscultation bilaterally Cardio regular rhythm Rate: tachycardic and other Other Details: Tachycardic rate with regular rhythm No murmurs rubs or gallops Radial and carotid pulses are equal and symmetric GI non-tender, non-distended and no masses GI Narrative: Abdomen is soft nontender nondistended with hypoactive bowel sounds. Negative Booth sign. No voluntary guarding or rigidity. No pulsatile mass or fluid wave. Auscultation: hypoactive bowel sounds Palpation: soft Extremity normal to inspection Neuro oriented x3, CN's II-XII intact bilaterally and no sensory deficits noted Sensorium / Orientation: alert Motor Exam: strength 5/5 throughout Psych Psych Narrative: Patient has a nervous/anxious affect Skin no rashes or lesions noted General Skin Exam: Negative for jaundice or pallor MDM MDM MDM Narrative Medical decision making narrative: Patient arrived to the ER hypertensive and slightly tachycardic but was extremely anxious upon presentation. As she recently had a CT scan and lab work obtained in outside hospital they were reviewed in [facility]isync. The patient's labs revealed no clinically significant abnormalities there is a slight elevation to her total bilirubin. The patient CT scan was reviewed and documented a small hemangioma versus cyst in the liver as well as a small lesion within the right lower lobe of the lung and then there were changes consistent with gallstones without signs of cholecystitis. The second part of the duodenum had a irregularity appearance which could be related to underdistention but there is no lymphadenopathy or osseous destruction or circumferential thickening or signs of infection. I discussed with patient that these are all nonspecific findings and without changes to her prior inflammatory markers or obvious findings of cancer on CT scan such as diffuse circumferential thickening masses or increased lymphadenopathy that my concern for intestinal cancer is low especially as she reported she had a colonoscopy 3 years ago that did not reveal any findings. I discussed with patient we could repeat laboratory studies and provide IV fluids and even antianxiety medication at this time. She states however as I been able to go over her results and have low concern that we are missing infection or cancer does not want any type of further workup obtained and she is therefore safe for discharge. History & Record Review Discussion w/independent historian: Patient Discharge Plan Triage Chief Complaint: Abd Pain ED Provider: Bam Winters Dx/Rx/DC Orders Clinical Impression: Nonspecific abdominal pain, Anxiety, Cholelithiasis Instructions: Abdominal Pain, ED Abdominal Pain Gallstone Poss Prescriptions: No Action NK Primary Care Provider: Caitlin Eduardo Referrals: Caitlin Eduardo MD [Primary Care Provider] - Activity Restrictions/Additional Instructions: Please keep your appointment with your GI doctor for next month for further evaluation and discuss gallbladder ultrasound based on your CT results as well as EGD and/or colonoscopy. The recent CT scan showed nonspecific changes but none that are overtly concerning for any type of infectious process or cancerous process. Keep yourself well-hydrated and feel free to take [id number] medications as needed for any type of symptom control. Return to the ER should you have any further concerns Print Language: Lao Disposition Disposition: Home, Self Care Discharge Date/Time: 06/14/24 03:30
== END 2024-06-14 03:30 | disposition home or self-care (01) ==
PROVIDERS: Emergency Provider Emergency Medicine; PCP Family Medicine; Visit Provider Emergency Medicine
DX: R10.9 Unspecified abdominal pain (principal); K80.20 Calculus of gallbladder without cholecystitis without obstruction; F41.9 Anxiety disorder, unspecified; Z87.891 Personal history of nicotine dependence
CPT/HCPCS: 99282

== ENCOUNTER 2024-06-22 14:41 | Emergency (ER) | payer OTHER, SELFPAY ==
[2024-06-22 14:42] VITALS: BP 148/96; PULSE 131; RESP 16; TEMP 36.4; O2SAT 100
--- NOTE | 2024-06-22 15:25 | EX.ED.DYSGE1 ---
HPI History of Present Illness Chief Complaint: Abd Pain Detail of Chief Complaint: Upper abdominal pain, 6 pound unintentional weight loss, bilious diarrhea Informant: patient Onset/Context/Timing Onset: Month(s) Context: - (Detailed in the HPI narrative) Timing: Intermittent Quality: Presently heartburn in the past crampy discomfort Location: Upper abdomen/epigastric Current Severity: Mild Maximum Severity: Moderate Worsened by: Nothing Relieved by: Nothing Associated Symptoms Associated Symptoms: Unintentional weight loss Narrative Narrative: Patient is a 54-year-old woman. She has had no abdominal surgery. She presents because of cancer phobia, weight loss, and her doctor sending her in. She says dated there was concern for obstruction. Patient denies vomiting. Patient's had watery bilious appearing diarrhea. She is flagellated. Furthermore as previously documented there is no history of abdominal surgery. Patient reports intermittent fever and chills. She denies night sweats or bone pain. She denies cardiac or respiratory symptoms. She denies intolerance to greasy or fried foods. She states on CAT scan that was performed at [facility] she had multiple gallstones and kidney stone. There is also concern regarding her duodenum. This has concerned her. She was given a referral to Dr. Ari Salas. She is not scheduled to see him for weeks. This concerns her. She denies dysuria, frequency, urgency or hematuria. She denies flank pain. There is no history of trauma. Prior similar symptoms: Yes Recent Illness/Hospitalization: Yes [facility] Medical History Anxiety Headache, migraine Home Medications ?Medication ?Instructions ?Recorded ?Last Taken ?Type NK 05/12/22 Unknown History Allergy/AdvReac Type Severity Reaction Status Date / Time No Known Allergies Allergy Verified 06/22/24 14:42 Social History Smoking Status: Former smoker ROS ROS ED Constitutional Constitutional ED: Reports chills, fever(s) and weight loss; Denies subjective or sweats Eyes Eyes: Denies blurry vision, change in vision or diplopia ENT ENT ED: Denies ear pain, rhinorrhea or sore throat Cardiovascular Cardiovascular: Denies chest pain, palpitations or racing heartbeat Respiratory/Chest Respiratory/Chest: Denies cough, dyspnea or dyspnea on exertion Gastrointestinal Gastrointestinal: Reports abdominal pain and diarrhea; Denies constipation, melena, nausea or vomiting Genitourinary Genitourinary ED: Denies dysuria, hematuria or urinary frequency Musculoskeletal Musculoskeletal: Denies back pain or neck pain Integumentary Denies rash Neurologic Neurologic: Denies paresthesias or weakness Psychiatric Psychiatric: Reports anxiety Endocrine Endocrinology: Denies cold intolerance or heat intolerance Hematologic/Lymphatic Hematologic/Lymphatic: Reports systems reviewed and no addt'l complaints, except as documented EXAM Physical Exam Const Vital Signs: 06/22/24 14:42 Temperature 97.6 F L Temperature Source Temporal Pulse Rate 131 H Respiratory Rate 16 Blood Pressure 148/96 H Blood Pressure Mean 113 Pulse Ox 100 Oxygen Delivery Method Room Air Positive well nourished and well developed Constitutional Narrative: Patient is very anxious. She became tearful. She informing that she is concerned because she has cancer phobia because her niece 20 years ago from leukemia and she was at her side when she . She has tried anxiety medicines however she does not like the way it makes her feel or they are not helpful. General Appearance ED: well developed; Negative for pallor HEENT Reports moist mucous membranes HEENT Narrative: Head is atraumatic normocephalic. Ears normal. Nares patent. Eyes PERRL and EOMs intact bilaterally General Eye ED: Negative for pale conjunctiva or scleral icterus Neck no lymphadenopathy, supple and no JVD Chest Wall inspection of chest normal and palpation of chest normal Resp normal respiratory effort and clear to auscultation bilaterally Cardio regular rhythm, S1 normal heart sound, S2 normal heart sound and no murmurs Rate: tachycardic GI non-distended and no masses; Negative for normal to inspection, nondistended, normoactive bowel sounds, non-tender or hepatosplenomegaly Inspection: Negative for abdominal distention Auscultation: hyperactive bowel sounds Palpation: soft and tender epigastric; Negative for guarding or splenomegaly Back/Spine no CVA tenderness Extremity normal to inspection General Extremety ED: Negative for edema or tenderness General Extremity: Negative for edema Neuro oriented x3 and CN's II-XII intact bilaterally Sensorium / Orientation: alert Skin no rashes or lesions noted, no wounds and skin turgor normal General Skin Exam: elasticity normal; Negative for jaundice or pallor MDM MDM MDM Narrative Medical decision making narrative: Differential diagnosis would include duodenitis, peptic ulcer disease, biliary disease, liver disease, abdominal pain of unknown etiology unable to obtain records from [facility]. They are presently not available on [facility]. Nurse/loan secretary's been asked to obtain ER dictation and CAT scan report from [facility] since was performed the end of May. Lab Data Attestation: I reviewed the patient's lab results. Lab results narrative: CBC is normal. Comprehensive metabolic panel is an elevated bilirubin of 1.6. Bilirubins been elevated in the past. Direct is 0.31. Lipase is normal. Lactate is normal. Labs: Laboratory Results - last 24 hr 06/22/24 06/22/24 15:30 15:34 WBC 6.4 RBC 4.41 Hgb 13.9 Hct 41.4 MCV 93.9 MCH 31.5 MCHC 33.6 RDW Std Deviation 42.6 RDW Coeff of Dandre 12.3 Plt Count 259 MPV 9.6 Immature Gran % (Auto) 0.300 Neut % (Auto) 71.0 H Lymph % (Auto) 21.2 [place] % (Auto) 6.4 Eos % (Auto) 0.5 Baso % (Auto) 0.6 Absolute Neuts (auto) 4.6 Absolute Lymphs (auto) 1.36 Nucleated RBC % 0 Sodium 140 Potassium 3.3 L Chloride 105 Carbon Dioxide 27.0 Anion Gap 8 BUN 14 Creatinine 0.89 Estim Creat Clear Calc 62.09 Est GFR (MDRD) Af Amer 85 Est GFR (MDRD) Non-Af 70 BUN/Creatinine Ratio 15.7 Glucose 114 H Lactic Acid 1.0 Calcium 8.9 Total Bilirubin 1.60 H Direct Bilirubin 0.31 H AST 15 ALT 18 Alkaline Phosphatase 73 Total Protein 7.6 Albumin 4.2 Globulin 3.4 Lipase 57 Treatment and Re-Evaluation :: Dr. Winters documented CT findings. He dictated patient's CT scan was reviewed and documented a small hemangioma versus cyst in the liver as well as a small lesion within the left lower lobe of the lung and then there were changes consistent with gallstones without signs of cholecystitis. The second part of the duodenum had an irregularity appearance which could be related to underdistention but there is no lymphadenopathy or osseous destruction or circumferential thickening or signs of infection. He discussed this with the patient. I had a lengthy discussion with patient. She feels comfortable going home. She is scheduled for an outpatient CAT scan that was ordered by Dr. Ari Salas. She is scheduled to see him as well. Discharge Plan Triage Chief Complaint: Abd Pain ED Provider: Derik Young Dx/Rx/DC Orders Clinical Impression: Bilateral upper abdominal pain, Unintentional weight loss, Elevated blood-pressure reading, without diagnosis of hypertension, Sinus tachycardia, Anxiety, Cholelithiasis Instructions: Gallstones Dc, ED Abdominal Pain Unkn Cause Fem Prescriptions: No Action NK Primary Care Provider: Caitlin Eduardo Referrals: Caitlin Eduardo MD [Primary Care Provider] - As Needed Ari Salas MD [Non-Staff] - Keep Екатерина appointment Print Language: Uzbek Disposition Disposition: Home, Self Care
[2024-06-22 15:42] LABS: Absolute Lymphocyte Count 1.36 X10^3/uL (0.83-4.51); Absolute Neutrophil Count 4.6 X10^3/uL (2.0-7.7); Basophil# 0.04 X10^3/uL; Basophil% 0.6 % (0-1); Eosinophil# 0.03 X10^3/uL; Eosinophils% 0.5 % (0-5); Hematocrit 41.4 % (37-47); Hemoglobin 13.9 g/dL (12.0-15.0); Lymphocyte # 1.36 X10^3/ul (0.83-4.51); Lymphocyte % 21.2 % (19-41); Mean Corp Hgb Conc 33.6 g/dL (32-36); Mean Corpuscular Hgb 31.5 pg (27.0-32.0); Mean Corpuscular Volume 93.9 fL (81-99); Mean Platelet Vol. 9.6 fl (6.2-12.0); Monocyte# 0.41 X10^3/uL; Monocyte% 6.4 % (0-10); NRBC Flagged by Analyzer 0 % (0-5); Neutrophil # 4.55 X10^3/uL (2.7-7.7); Platelet Count 259 K/mm3 (150-450); RBC Distribution Width CV 12.3 % (11.6-14.6); RBC Distribution Width SD 42.6 fl (35.1-43.9); Red Blood Count 4.41 M/mm3 (4.2-5.4); White Blood Count 6.4 K/mm3 (4.4-11.0)
[2024-06-22 15:58] LABS: AST(SGOT) 15 U/L (15-37); Alanine Aminotransfer ALT/SGPT 18 U/L (13-56); Albumin, Serum 4.2 g/dL (3.2-5.0); Alkaline Phosphatase 73 U/L (45-117); Anion Gap 8 (5-15); BUN 14 mg/dL (7-18); BUN/Creat Ratio 15.7 RATIO (10-20); Bilirubin, Direct 0.31 mg/dL (0.00-0.30); Calcium,Total 8.9 mg/dL (8.5-10.1); Chloride 105 mmol/L (98-107); Creatinine, Serum 0.89 mg/dL (0.55-1.02); EST Glomerular Filtration Rate 70 mL/min (>60); Est Glom Filt Rate - Afr Amer 85 mL/min (>60); Estimated Creatinine Clearance 62.09 ml/min; Globulin 3.4 g/dL (2.2-4.2); Glucose 114 mg/dL (74-106); Lipase 57 U/L (13-75); Potassium 3.3 mmol/L (3.5-5.1); Protein, Total 7.6 g/dL (6.4-8.2); Sodium Level 140 mmol/L (136-145)
[2024-06-22 16:41] VITALS: BP 143/87; PULSE 102; RESP 15
[2024-06-22 18:00] VITALS: BP 151/89; PULSE 98; RESP 19; O2SAT 98
== END 2024-06-22 18:06 | disposition home or self-care (01) ==
PROVIDERS: Emergency Medicine; Emergency Provider Emergency Medicine; PCP Family Medicine; Visit Provider Emergency Medicine
DX: R10.10 Upper abdominal pain, unspecified (principal); K80.20 Calculus of gallbladder without cholecystitis without obstruction; R19.7 Diarrhea, unspecified; N20.0 Calculus of kidney; R03.0 Elevated blood-pressure reading, without diagnosis of hypertension; R00.0 Tachycardia, unspecified; R63.4 Abnormal weight loss; Z87.891 Personal history of nicotine dependence
CPT/HCPCS: 80048; 80076; 83605; 83690; 85025; 99283; A4216

== ENCOUNTER → 2024-06-24 | Outpatient (CLI) | payer OTHER, SELFPAY ==
--- NOTE | 2024-06-24 17:42 | CT_ITS ---
INDICATION: RUQ pain EXAMINATION: CT ABDOMEN WITHOUT CONTRAST TECHNIQUE: Multiple axial images were obtained of the abdomen with sagittal and coronal reconstructed images. Individualized dose optimization techniques were used for this CT. IV contrast dosage and agent: None. Oral contrast: Contrast seen in the stomach, small bowel and colon. COMPARISON: None. FINDINGS: VESSELS: No abdominal aortic aneurysm. LIVER: No intrahepatic or extrahepatic biliary duct dilation. 2.3 cm hepatic cyst. GALLBLADDER: Contracted. Calcified stone. No evidence of cholecystitis. PANCREAS: No focal solid or cystic mass. No evidence of pancreatitis. SPLEEN: Normal. ADRENAL GLANDS: Normal. KIDNEYS: 2 mm right renal stone. No hydronephrosis. BOWEL: Visualized bowel is unremarkable. PERITONEUM: No intraabdominal free fluid or free air within the visualized abdomen LYMPH NODES: No pathologically enlarged mesenteric or retroperitoneal lymph nodes. ABDOMINAL WALL: No abdominal or pelvic wall hernia. BONES: No acute abnormality. LOWER CHEST: Visualized lung bases are unremarkable. CT/Abdomen without IV Contrast IMPRESSION: No acute abnormality. Electronically Signed: Iban Cooney DO at 0:20 EDT ,
== END | disposition home or self-care (01) ==
LOC: CT 17:41
PROVIDERS: PCP Family Medicine; Referring Provider Family Medicine; Visit Provider Family Medicine
DX: R10.11 Right upper quadrant pain (principal)
CPT/HCPCS: 74150

== ENCOUNTER → 2025-08-10 | Outpatient (CLI) | payer OTHER, SELFPAY ==
[2025-08-10 15:22] LABS: Hematocrit 39.1 % (37-47); Hemoglobin 13.3 g/dL (12.0-15.0); Immature Granulocytes Count 0.010 X10^3/uL (0.0-0.0); Mean Corp Hgb Conc 34.0 g/dL (32-36); Mean Corpuscular Volume 93.5 fL (81-99); Mean Platelet Vol. 10.0 fl (6.2-12.0); NRBC Flagged by Analyzer 0 % (0-5); Platelet Count 257 K/mm3 (150-450); RBC Distribution Width CV 12.4 % (11.6-14.6); RBC Distribution Width SD 42.8 fl (35.1-43.9); Red Blood Count 4.18 M/mm3 (4.2-5.4); White Blood Count 6.1 K/mm3 (4.4-11.0)
[2025-08-10 15:52] LABS: AST(SGOT) 27 U/L (<=31); Alanine Aminotransfer ALT/SGPT 16 U/L (<=34); Albumin, Serum 4.8 g/dL (3.5-5.0); Alkaline Phosphatase 77 U/L (35-104); Anion Gap 12 (5-15); BUN 12 mg/dL (4-19); BUN/Creat Ratio 16.2 RATIO (10-20); Calcium,Total 9.5 mg/dL (7.6-11.0); Carbon Dioxide 24.9 mmol/L (21.0-32.0); Chloride 102 mmol/L (98-108); Globulin 2.5 g/dL (2.2-4.2); Glucose 106 mg/dL (70-99); Potassium 3.9 mmol/L (3.3-5.1); Vitamin D,25 Hydroxy 14.0 ng/mL (30-100)
== END | disposition home or self-care (01) ==
LOC: MFPLAB 12:26
PROVIDERS: PCP Family Medicine; Visit Provider Family Medicine
DX: Z00.00 Encounter for general adult medical examination without abnormal findings (principal); Z78.0 Asymptomatic menopausal state
CPT/HCPCS: 36415; 80053; 82306; 85025

== ENCOUNTER → 2025-09-30 | Outpatient (CLI) | payer OTHER, SELFPAY ==
--- NOTE | 2025-09-30 07:17 | BI_ITS ---
EXAM: SCRN MAMM (CAD)W/LEENA BILAT DATE: 09/30/2025 CLINICAL HISTORY: F, Age 55 y/o , SCREENING No family history. TECHNIQUE: Procedure Code: [id number] Modality: MG Procedure: SCRN MAMM (CAD)W/LEENA BILAT COMPARISON: Prior exam(s) dated November 03, 2021.. FINDINGS: TISSUE DENSITY: The breasts are extremely dense, which lowers the sensitivity of mammography. Bilateral Breast Mammographic Findings: No significant masses, calcifications or other abnormalities are identified. No suspicious masses, areas of developing architectural distortion, or suspicious calcifications. There has been no significant interval change. BI/SCRN MAMM (CAD)W/LEENA BILAT IMPRESSION: Stable bilateral screening mammogram. OVERALL FINAL ASSESSMENT BI-RADS 1: NEGATIVE. RECOMMENDATION: Routine annual follow-up in 1 Year Additional Recommendation none A letter with findings and recommendations will be mailed to the patient. Reading Location: [place] [id number]
--- OUTSIDE RECORDS SUMMARY | 2025-09-30 07:34 | XMS RPT_ITS | CCD ---
Author Organization [facility] Inform ion Partnership [facility] Care Team Providers Care Area Field Person Name Role Phone JORDAN WILLIS Unavailable Unavailable MELECIO, CAITLIN Unavailable Unavailable MELECIO, CAITLIN Unavailable Unavailable Caitlin Eduardo Primary Care Provider [phone] Caitlin Eduardo Primary Care Provider [phone] Caitlin Eduardo Primary Care Provider MELECIO CUEVAS, DR BILLS Primary Care Physician YOCASTA CUEVAS, ZOHAIB Shelton Attending Unavail able DR CAITLIN EDUARDO MD Primary Care Unavailable JOANIE MIDDLETON Primary Care Unavailable NAVDEEP TODD Attending Unavailable CAITLIN EDUARDO Primary Care Unavailable CAITLIN EDUARDO Primary Care Unavailable Joanie Middleton Referring Unavailable Joanie Middleton Attending Unavailable Joanie Middleton Primary Care Unavailable Caitlin Eduardo Primary Care Unavailable Joanie Middleton Attending Unavailable Medications Current Medications Medication Drug Class(es) Dates Sig (Normalized) Sig (Original) amoxicillin 875 mg / clavulanate 125 mg oral tablet (2 sources) Penicillin-class Antibacterial Start: 02-06-2024 End: 02-13-2024 take 1 tablet by mouth twice daily amoxicillin-clav ulanate potassium (AUGMENTIN) 875-125 mg per tablet Take 1 tablet by mouth two times a day for 7 days. 14 tablet 0 02/06/2024 02/13/2024 Active Start: 03-28-2022 End: 04-02-2022 take 1 tablet by mouth twice daily amoxicillin-clavulanic acid (AUGMENTIN) 875-125 mg per tablet Take 1 tablet by mouth twice daily for 5 days. 10 tablet 0 03/28/2022 04/02/2022 Active Comment on above: Take 1 tablet by chuck th twice daily for 5 days. Take 1 tablet by chuck th two times a day for 7 days. benzonatate 100 mg oral capsule (14 sources) Non-narcotic Antitussive Start: take 1 capsule by mouth every eight hours as needed benzonatate (TESSALON PERLES) 100 mg capsule Take 1 capsule by mouth three times daily as needed for cough. 14 capsule 01/27/2023 Active Comment on above: Take 1 capsule by [facility] three times daily as needed for cough. brompheniramine maleate 0.4 mg/ml / dextromethorphan hydrobromide 2 mg/ml / pseudoephedrine hydrochloride 6 mg/ml oral solution (4 sources) alpha-Adrenergic Agonist, Uncompetitive U-fuuhrz-Z-aspartate Receptor Antagonist, Sigma-1 Agonist Start: 024 take 10 mL by mouth every six hours as needed Brompheniramine-Pseud oeph-DM (BROMFED DM) 2-30-10 mg/5 mL syrup Take 10 mL by mouth four times a day as needed. 118 mL 04/14/2024 Active cephalexin 500 mg oral capsule (2 sources) Cephalosporin Antibacterial Start: 025 End: take 1 capsule by mouth four times daily cephALEXin (KEFLEX) 500 mg capsule Indications: Urinary frequency Take 1 capsule by mouth four times daily for 7 days. 28 capsule 12/16/2024 12/23/2024 Active copper intrauterine device (1 source) Start: copper intrauterine device 0 Refill(s) Start Date: 05/19/17 Status: Ordered cyclobenzaprine hydrochloride 10 mg oral tablet (10 sources) Muscle Relaxant Start: 023 End: take 1 tablet by mouth twice daily as needed for muscle spasms cyclobenzaprine (FLEXERIL) 10 mg tablet Indications: Stiff neck Take 1 tablet by mouth two times a day as needed for muscle spasm for up to 7 days. 14 tablet 0 09/16/2023 09/23/2023 Active Start: 10-11-2014 End: 09-16-2023 take 1 tablet by mouth three times daily as needed for muscle spasms cyclobenzaprine (FLEXERIL) 10 mg tablet Indications: Trapezius muscle strain Take 1 tablet by mouth three times daily as needed for Muscle Spasm. 20 tablet 0 10/11/2014 09/16/2023 Discontinued Comment on above: Take 1 tablet by chuck th three times daily as needed for Muscle Spasm. Take 1 tablet by chuck th two times a day as needed for muscle spasm for up to 7 days. DULoxetine 60 mg delayed release oral capsule (3 sources) Serotonin and Norepinephrine Reuptake Inhibitor Start: 10-08-20 24 take 1 capsule by mouth once DULoxetine (CYMBALTA) 60 mg capsule Take 1 capsule by mouth every afternoon. 10/08/2024 Active fluconazole 150 mg oral tablet (1 source) Azole Antifungal Start: 05-11-20 End: 05-11-20 23 fluconazole (DIFLUCAN) 150 mg tablet Indications: Vaginal yeast infection Take 1 tablet by mouth one time only for 1 dose. Repeat in 3 days as needed. 2 tablet 0 05/11/2023 05/11/2023 Active Comment on above: Take 1 tablet by chuck one time only for 1 dose. Repeat in 3 days as needed. guaiFENesin 400 mg oral tablet (1 source) Start: 07-18-20 14 Guaifenesin (Tab Tussin) 400 MG tablet Active 400 MG PO NEEDED July 18, 2014 9:37am LORazepam 1 mg oral tablet (1 source) Benzodiazepine Start: 07-18-20 14 take 1 mg by mouth three times daily Lorazepam Active 1 MG PO THREE TIMES A DAY 14 July 18, 2014 11:19am mv-min/iron/folic/ca lcium/vitK (WOMEN'S MULTIVITAMIN ORAL) (11 sources) mv-min/iron/foli c/ca lcium/vitK (WOMEN'S MULTIVITAMIN ORAL) Take by mouth. Active mv-min/iron/foli c/calcium/vitK (WOMEN'S MULTIVITAMIN ORAL) Take by mouth. 0 Active Comment on above: Take by mouth. nitrofurantoin, macrocrystals 25 mg / nitrofurantoin, monohydrate 75 mg oral capsule (2 sources) Nitrofuran Antibacterial Start: 023 End: 023 take 1 capsule by mouth twice daily at mealtime nitrofurantoin monohydrate and macrocrystal (MACROBID) 100 mg capsule Indications: Acute cystitis with hematuria Take 1 capsule by mouth twice daily with meals for 7 days. 14 capsule 0 05/11/2023 05/18/2023 Active Comment on above: Take 1 capsule by [facility] twice daily with meals for 7 days. 24 hr oxybutynin chloride 5 mg extended release oral tablet (17 sources) Cholinergic Muscarinic Antagonist Start: oxybutynin XL (DITROPAN XL) 5 mg 24 hr tablet 02/16/2022 Active PARoxetine hydrochloride 20 mg oral tablet (17 sources) Serotonin Reuptake Inhibitor take 10 mg by mouth once daily PARoxetine (PAXIL) 20 mg tablet Take 10 mg by mouth once daily. Active Comment on above: Take 10 mg by mouth once daily. phenazopyridine hydrochloride 200 mg oral tablet (2 sources) Start: End: take 1 tablet by mouth three times daily as needed for pain phenazopyridine (PYRIDIUM) 200 mg tablet Indications: Acute cystitis with hematuria Take 1 tablet by mouth three times daily as needed for pain for up to 10 days. 30 tablet 0 05/11/2023 05/21/2023 Active Comment on above: Take 1 tablet by [facility] three times daily as needed for pain for up to 10 days. predniSONE 20 mg oral tablet (2 sources) Start: End: take 2 tablets by mouth once daily predniSONE (DELTASONE) 20 mg tablet Take 2 tablets by mouth once daily for 4 days. 8 tablet 0 01/27/2023 01/31/2023 Active Comment on above: Take 2 tablets by [facility] once daily for 4 days. Progesterone (17 sources) Progesterone PROGESTERONE MICRONIZED ORAL Take by mouth. Active PROGESTERONE MICHELLE RONIZED ORAL Take by mouth. 0 Active Comment on above: Take by mouth. sulfamethoxazole 800 mg / trimethoprim 160 mg oral tablet (1 source) Dihydrofolate Reductase Inhibitor Antibacterial, Sulfonamide Antimicrobial Start: 07-18-20 14 take 1 tablet by mouth twice daily Sulfamethoxazole -Trimethoprim Active 1 TABLET PO TWICE A DAY July 18, 2014 9:37am vibegron (GEMTESA) 75 mg tablet (11 sources) take 1 tablet by mouth once daily vibegron (GEMTESA) 75 mg tablet Take 75 mg by mouth once daily. Active take 1 tablet by mouth once carlo y vibegron (GEMTESA) 75 mg tablet Take 75 mg by mouth once daily. 0 Active Comment on above: Take 75 mg by mouth once daily. ZOLMitriptan 2.5 mg oral tablet (1 source) Serotonin-1b and Serotonin-1d Receptor Agonist Start: 01-09-2021 take 0.5 tablet by mouth once as needed for headache Zomig 2.5 mg oral tablet 0.5 tab(s), Oral, Once, PRN for migraine headache, # 6 tab(s), 0 Refill(s) Start Date: 01/09/21 Status: Ordered Problems Active Problems Problem Classification Problem Date Documented Da te Episodic/Chronic Abdominal pain (2 sources) Flank pain; Translations: [Abdominal pain] Onset: 05-19-2017 Episodic Cardiac dysrhythmias (3 sources) Palpitations; Translations: [Palpitations] 01-10-2023 Episodic Chronic obstructive pulmonary disease and bronchiectasis (2 sources) Bronchitis; Translations: [Bronchitis, not specified as acute or chronic] Episodic E Codes: Adverse effects of medical drugs (3 sources) Adverse reaction to drug; Translations: [Adverse effect of unspecified drugs, medicaments and biological substances, initial encounter] 01-10-2023 Episodic E Codes: Natural/environment (1 source) Dog bite - wound; Translations: [Bitten by dog, initial encounter] Episodic Genitourinary symptoms and ill-defined conditions (2 sources) Increased frequency of urination; Translations: [Frequency of micturition] Episodic Mycoses (1 source) Candidiasis of vagina; Translations: [Vaginal yeast infection] Episodic Nonspecific chest pain (1 source) Chest wall pain; Translations: [Other chest pain] Episodic Other ear and sense organ disorders (1 source) Ear sensations - finding; Translations: [Other specified disorders of left ear] Episodic Other gastrointestinal disorders (4 sources) Dysphagia; Translations: [Dysphagia, unspecified] 05-20-2022 Episodic Other lower respiratory disease (3 sources) Cough; Translations: [Acute cough] Episodic Other lower respiratory disease (1 source) Cough; Translations: [Acute cough] 01-28-2023 Episodic Other lower respiratory disease (1 source) Hemoptysis; Translations: [Bloody sputum] Onset: 08-12-2025 Episodic Other non-traumatic joint disorders (1 source) Pain in left knee; Translations: [Pain in joint, lower leg] 02-25-2025 Episodic Other screening for suspected conditions (not mental disorders or infectious disease) (1 source) Encounter for screening mammogram for malignant neoplasm of breast; Translations: [Encounter for screening mammogram for malignant neoplasm of breast] Onset: 09-19-2025 Episodic Other upper respiratory infections (9 sources) Pharyngitis; Translations: [Acute pharyngitis, unspecified] Episodic Unclassified (1 source) Unknown / UNK(Unknown) Onset: 05-19-2017 Urinary tract infections (1 source) Acute cystitis; Translations: [Acute cystitis with hematuria] Episodic Past or Other Problems Problem Classification Problem Date Documented Da te Episodic/Chronic Spondylosis; intervertebral disc disorders; other back problems (18 sources) Cervico-occipita l neuralgia; Translations: [Occipital neuralgia] Onset: 03-04-2014 03-04-2014 Episodic Results Test Name Value Interpretation Reference Range Facility [facility] 08-12-2025 CNOV Office Visit (WOUCA) MIRNA TODD ([id number]) 1970 F Date Time Provider Department 08/12/25 4:15 PM NAVDEEP TODD During your visit today, we recorded the following information about you: Temperature Pulse Respiration Blood pressure 98.5 degrees 130/minute 18/minute 161/94 Weight 59.2 kg Navdeep Todd APRN.CDC ASSOCIATE 08/12/2025 5:13 PM Signed [facility] Subjective HPI HPI Mirna Todd is a 55 year old female who presents today for CC of coughing up blood today, feeling dizzy. This started today. Has tried nothing for relief. Symptoms are worsened by nothing. Denies cp/sob. Denies uri s/s. 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 MEDICATIONS DULoxetine (CYMBALTA) 60 mg capsule Take 1 capsule by mouth every afternoon. Brompheniramine-Pseud oeph-DM (BROMFED DM) 2-30-10 mg/5 mL syrup Take 10 mL by mouth four times a day as needed. (Patient not taking: Reported on 12/16/2024) mv-min/iron/folic/bela cium/vitK (WOMEN'S MULTIVITAMIN ORAL) Take by mouth. (Patient not taking: Reported on 12/16/2024) vibegron (GEMTESA) 75 mg tablet Take 75 mg by mouth once daily. (Patient not taking: Reported on 12/16/2024) benzonatate (TESSALON PERLES) 100 mg capsule Take 1 capsule by mouth three times daily as needed for cough. (Patient not taking: Reported on 04/27/2023) oxybutynin XL (DITROPAN XL) 5 mg 24 hr tablet (Patient not taking: Reported on 04/27/2023) PROGESTERONE MICRONIZED ORAL Take by mouth. (Patient not taking: Reported on 04/27/2023) PARoxetine (PAXIL) 20 mg tablet Take 10 mg by mouth once daily. (Patient not taking: Reported on 05/11/2023) FAMILY HISTORY Problem Relation Age of Onset Prostate Cancer Father Diabetes Paternal Grandmother Heart Paternal Grandmother SOCIAL HISTORY[1] Review of Systems Constitutional: Negative for chills, fatigue and fever. HENT: Negative for ear discharge, ear pain, rhinorrhea, sinus pressure, sinus pain and sore throat. Eyes: Negative for discharge and redness. Respiratory: Negative for cough, shortness of breath and wheezing. Cardiovascular: Negative for chest pain. Skin: Negative for rash. Neurological: Positive for dizziness. Objective BP 161/94 Pulse (!) 130 Temp 36.9 ?C (98.5 ?F) Resp 18 Wt 59.2 kg (130 lb 8.2 oz) LMP (LMP Unknown) SpO2 100% Physical Exam Constitutional: General: She is not in acute distress. Appearance: She is not toxic-appearing or diaphoretic. HENT: Head: Normocephalic and atraumatic. Right Ear: Hearing, tympanic membrane, ear canal and external ear normal. Left Ear: Hearing, tympanic membrane, ear canal and external ear normal. Nose: Nose normal. Mouth/Throat: Pharynx: Uvula midline. Eyes: General: Lids are normal. No scleral icterus. Right eye: No discharge. Left eye: No discharge. Conjunctiva/sclera: Conjunctivae normal. Pupils: Pupils are equal, round, and reactive to light. Neck: Trachea: Trachea normal. Cardiovascular: Rate and Rhythm: Normal rate and regular rhythm. Heart sounds: Normal heart sounds. Pulmonary: Effort: Pulmonary effort is normal. Breath sounds: Normal breath sounds. Musculoskeletal: Cervical back: Normal range of motion and neck supple. Lymphadenopathy: Cervical: No cervical adenopathy. Skin: Findings: No rash. Neurological: Mental Status: She is alert and oriented to person, place, and time. {ASSESSMENT/PLAN: 1. Bloody sputum - ICD9: 786.30, ICD10: R04.2 Discussed options with patient Patient prefers to go to ER for evaluation Declines squad Will drive pov to ER, unclear what ER will go to at this time. Navdeep Todd APRN.CDC ASSOCIATE History and Record Review External record(s) reviewed: prior outpatient record. Disposition The patient was other (comment) (referred to ER). Procedures [1] Social History Tobacco Use Smoking status: Former Current packs/day: 0.00 Types: Cigarettes Quit date: 07/02/2014 Years since quittin.1 Smokeless tobacco: Never Tobacco comments: socially Substance Use Topics Alcohol use: Yes Comment: OCCASIONALLY Drug use: No Allergies As of Date: 08/12/2025 (No Known Allergies) Date Reviewed: 08/12/2025 Reviewed by: Sylvie Pérez MA - Fully Assessed Reason for Visit: Coughing Up Blood [3930] Cmt: Blood on tissue, denies ST or KEITH, started today Primary Visit Diagnosis:Bloody sputum [R04.2] Prescriptions as of 08/12/2025 - DULoxetine (CYMBALTA) 60 mg capsule Take 1 capsule by mouth every afternoon. - Brompheniramine-Pseud oeph-DM (BROMFED DM) 2-30-10 mg/5 mL syrup Take 10 mL by mouth four times a day as needed. - mv-min/iron/folic/bela cium/vitK (WOME (more content not included)... Normal [facility] W/Diff, Automatedon 09-2 -2024 Absolute Lymph 1.25 X10 3/uL Normal 0.83-4.51 [facility] Comment on above: Performed By: #### L 506.1001, L500.4050, L100.0100 #### [facility] [address] [place], [address] Absolute Neut 4.5 X10 3/uL Normal 2.0-7.7 [facility] Comment on above: Performed By: #### L 506.1001, [id number], L100.0100 #### [facility] [address] [place], [address] Basophils/100 WBC (Bld) 0.7 % Normal 0-1 [facility] Comment on above: Performed By: #### L 506.1001, [id number], L100.0100 #### [facility] [address] [place], [address] Eosinophils/100 WBC (Bld) 0.5 % Normal 0-5 [facility] Comment on above: Performed By: #### L 506.1001, [id number], L100.0100 #### [facility] [address] [place], [address] Erythrocyte distribution width (RBC) [Ratio] 12.4 % Normal 11.6-14.6 [facility] Comment on above: Performed By: #### L 506.1001, [id number], L100.0100 #### [facility] [address] [place], [address] Hematocrit (Bld) [Volume fraction] 39.1 % Normal 37-47 [facility] Comment on above: Performed By: #### L 506.1001, [id number], L100.0100 #### [facility] [address] [place], [address] Hemoglobin (Bld) [Mass/Vol] 13.3 g/dL Normal 12.0-15.0 [facility] Comment on above: Performed By: #### L 506.1001, [id number], L100.0100 #### [facility] [address] [place], [address] IG% 0.200 Normal 0.0-0.9 [facility] Comment on above: Result Comment: IG% - Immature Granulocytes (promyelocytes, myelocytes and metamyelocytes) > 1% indicates that a LEFT SHIFT is Present. Performed By: #### L 506.1001, [id number], L100.0100 #### [facility] [address] [place], [address] Lymphocytes/100 WBC (Bld) 20.5 % Normal 19-41 [facility] Comment on above: Performed By: #### L 506.1001, [id number], L100.0100 #### [facility] [address] [place], [address] MCH (RBC) [Entitic mass] 31.8 pg Normal 27.0-32.0 [facility] Comment on above: Performed By: #### L 506.1001, [id number], L100.0100 #### [facility] [address] [place], [address] MCHC (RBC) [Mass/Vol] 34.0 g/dL Normal 32-36 [facility] Comment on above: Performed By: #### L 506.1001, [id number], L100.0100 #### [facility] [address] [place], [address] MCV (RBC) [Entitic vol] 93.5 fL Normal 81-99 [facility] Comment on above: Performed By: #### L 506.1001, [id number], L100.0100 #### [facility] [address] [place], [address] Monocytes/100 WBC (Bld) 5.4 % Normal 0-10 [facility] Comment on above: Performed By: #### L 506.1001, [id number], L100.0100 #### [facility] [address] [place], [address] Neutrophils/100 WBC (Bld) 72.7 % High 47-70 [facility] Comment on above: Performed By: #### L 506.1001, [id number], L100.0100 #### [facility] [address] [place], [address] Nucleated RBC (Bld) [#/Vol] 0 10*3/uL Normal 0-5 [facility] Comment on above: Performed By: #### L 506.1001, [id number], L100.0100 #### [facility] [address] [place], [address] Platelet mean volume (Bld) [Entitic vol] 10.0 fL Normal 6.2-12.0 [facility] Comment on above: Performed By: #### L 506.1001, [id number], L100.0100 #### [facility] [address] [place], [address] Platelets (Bld) [#/Vol] 257 10*3/uL Normal 150-450 [facility] Comment on above: Performed By: #### L 506.1001, [id number], L100.0100 #### [facility] [address] [place], [address] RBC (Bld) [#/Vol] 4.18 10*6/uL Low 4.2-5.4 [facility] Comment on above: Performed By: #### L 506.1001, [id number], L100.0100 #### [facility] [address] [place], [address] RDW SD 42.8 fl Normal 35.1-43.9 [facility] Comment on above: Performed By: #### L 506.1001, [id number], L100.0100 #### [facility] [address] [place], [address] WBC (Bld) [#/Vol] 6.1 10*3/uL Normal 4.4-11.0 [facility] Comment on above: Performed By: #### L 506.1001, [id number], L100.0100 #### [facility] [address] [place], [address] Comprehensive Metabolic Prof [facility] 08-10-2025 Albumin [Mass/Vol] 4.8 g/dL Normal 3.5-5.0 [facility] Comment on above: Performed By: #### L 506.1001, [id number], L100.0100 #### [facility] [address] [place], [address] Albumin/Globulin [Mass ratio] 1.9 {ratio} Normal 0.9-2.4 [facility] Comment on above: Performed By: #### L 506.1001, [id number], L100.0100 #### [facility] [address] [place], [address] ALK PHOS 77 U/L Normal 35-104 [facility] Comment on above: Performed By: #### L 506.1001, [id number], L100.0100 #### [facility] [address] [place], [address] ALT [Catalytic activity/Vol] 16 U/L Normal <=34 [facility] Comment on above: Performed By: #### L 506.1001, [id number], L100.0100 #### [facility] [address] [place], [address] AST [Catalytic activity/Vol] 27 U/L Normal <=31 [facility] Comment on above: Performed By: #### L 506.1001, [id number], L100.0100 #### [facility] [address] [place], [address] Bilirubin [Mass/Vol] 1.77 mg/dL High 0.00-1.30 [facility] Comment on above: Performed By: #### L 506.1001, [id number], L100.0100 #### [facility] [address] [place], [address] BUN/CRE 16.2 RATIO Normal 10-20 [facility] Comment on above: Performed By: #### L 506.1001, [id number], L100.0100 #### [facility] [address] [place], [address] Calcium [Mass/Vol] 9.5 mg/dL Normal 7.6-11.0 [facility] Comment on above: Performed By: #### L 506.1001, [id number], L100.0100 #### [facility] [address] [place], [address] Chloride [Moles/Vol] 102 mmol/L Normal 98-108 [facility] Comment on above: Performed By: #### L 506.1001, [id number], L100.0100 #### [facility] [address] [place], [address] CO2 [Moles/Vol] 24.9 mmol/L Normal 21.0-32.0 [facility] Comment on above: Performed By: #### L 506.1001, [id number], L100.0100 #### [facility] [address] [place], [address] Creatinine [Mass/Vol] 0.75 mg/dL Normal 0.70-1.20 [facility] Comment on above: Performed By: #### L 506.1001, [id number], L100.0100 #### [facility] [address] [place], [address] GAP 12 Normal 5-15 [facility] Comment on above: Performed By: #### L 506.1001, [id number], L100.0100 #### [facility] [address] [place], [address] GFR/1.73 sq M.predicted among non-blacks MDRD (S/P/Bld) [Vol rate/Area] 94 mL/min/{1.73_m2} Normal >60 [facility] Comment on above: Result Comment: mL/m in/1.73m2 CKD-EPI Creatinine Equation (2020) Performed By: #### L 506.1001, [id number], L100.0100 #### [facility] [address] [place], [address] Globulin (S) [Mass/Vol] 2.5 g/dL Normal 2.2-4.2 [facility] Comment on above: Performed By: #### L 506.1001, [id number], L100.0100 #### [facility] [address] [place], [address] Glucose [Mass/Vol] 106 mg/dL High 70-99 [facility] Comment on above: Performed By: #### L 506.1001, [id number], L100.0100 #### [facility] [address] [place], [address] Potassium [Moles/Vol] 3.9 mmol/L Normal 3.3-5.1 [facility] Comment on above: Performed By: #### L 506.1001, [id number], L100.0100 #### [facility] [address] [place], [address] Sodium [Moles/Vol] 140 mmol/L Normal 133-145 [facility] Comment on above: Performed By: #### L 506.1001, [id number], L100.0100 #### [facility] [address] [place], [address] T PROT 7.3 g/dL Normal 5.9-8.4 [facility] Comment on above: Performed By: #### L 506.1001, [id number], L100.0100 #### [facility] [address] [place], [address] Urea nitrogen [Mass/Vol] 12 mg/dL Normal 4-19 [facility] Comment on above: Performed By: #### L 506.1001, [id number], L100.0100 #### [facility] [address] [place], [address] Vitamin D,25 Hydroxyon 08-10 Vitamin D 25-OH 14.0 ng/mL Low 30-100 [facility] Comment on above: Result Comment: Renetta min D Status Deficiency: <20 ng/mL (50nmol/L) Insufficiency: 20-30 ng/mL (50-75 nmol/L) Sufficiency: 30-100 ng/mL (75-250 nmol/L) Toxicity: >100 ng/mL (>250 nmol/L) Performed By: #### L 506.1001, [id number], L100.0100 #### [facility] [address] [place], [address] CNOVon 02-25-2025 CNOV Office Visit (UCWSTR ) MIRNA TODD ([id number]) 1970 F Date Time Provider Department 02/25/25 5:45 PM NAVDEEP TODD During your visit today, we recorded the following information about you: Temperature Pulse Respiration Blood pressure 97 degrees 138/minute 20/minute 136/99 Weight 57 kg Navdeep Todd APRN.CDC ASSOCIATE 02/25/2025 7:19 PM Signed [facility] Subjective HPI HPI Mirna Todd is a 55 year old female who presents today for CC of posterior swelling/pain of left knee. This started 1 day ago. Has tried nothing for relief. Symptoms are worsened by touching the area. Risk factors recently changed how she sits at work and this rubs on back of knee. Nonsmoker. Denies hx of blood clots. 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 MEDICATIONS DULoxetine (CYMBALTA) 60 mg capsule Take 1 capsule by mouth every afternoon. Brompheniramine-Pseud oeph-DM (BROMFED DM) 2-30-10 mg/5 mL syrup Take 10 mL by mouth four times a day as needed. (Patient not taking: Reported on 12/16/2024) mv-min/iron/folic/bela cium/vitK (WOMEN'S MULTIVITAMIN ORAL) Take by mouth. (Patient not taking: Reported on 12/16/2024) vibegron (GEMTESA) 75 mg tablet Take 75 mg by mouth once daily. (Patient not taking: Reported on 12/16/2024) benzonatate (TESSALON PERLES) 100 mg capsule Take 1 capsule by mouth three times daily as needed for cough. (Patient not taking: Reported on 04/27/2023) oxybutynin XL (DITROPAN XL) 5 mg 24 hr tablet (Patient not taking: Reported on 04/27/2023) PROGESTERONE MICRONIZED ORAL Take by mouth. (Patient not taking: Reported on 04/27/2023) PARoxetine (PAXIL) 20 mg tablet Take 10 mg by mouth once daily. (Patient not taking: Reported on 05/11/2023) FAMILY HISTORY Problem Relation Age of Onset Prostate Cancer Father Diabetes Paternal Grandmother Heart Paternal Grandmother Social History Tobacco Use Smoking status: Former Current packs/day: 0.00 Types: Cigarettes Quit date: 07/02/2014 Years since quittin.6 Smokeless tobacco: Never Tobacco comments: socially Substance Use Topics Alcohol use: Yes Comment: OCCASIONALLY Drug use: No Review of Systems Objective BP 136/99 Pulse (!) 138 Temp 36.1 ?C (97 ?F) Resp 20 Wt 57 kg (125 lb 10.6 oz) LMP (LMP Unknown) SpO2 99% Physical Exam Constitutional: General: She is not in acute distress. Appearance: She is not toxic-appearing or diaphoretic. HENT: Head: Normocephalic and atraumatic. Pulmonary: Effort: Pulmonary effort is normal. No accessory muscle usage or respiratory distress. Musculoskeletal: Legs: Neurological: Mental Status: She is alert and oriented to person, place, and time. {ASSESSMENT/PLAN: 1. Acute pain of left knee - ICD9: 719.46, ICD10: M25.562 I discussed limitations of express care in the PM/limited imaging. Patient declines concerns for dvt, very low suspicioun/unable to obtain ultrasound at time of exam, does not want to order future ultrasound Possibly irritated bakers cyst. Reports will try nsaids, ice, compression and f/u with pcp in few days. Urgent f/u advised if s/s worsen. Navdeep Todd APRN.CDC ASSOCIATE History and Record Review External record(s) reviewed: prior outpatient record. Disposition The patient was discharged. OTC Medications were advised: Procedures Allergies As of Date: 02/25/2025 (No Known Allergies) Date Reviewed: 02/25/2025 Reviewed by: Kristel Reaves LPN - Fully Assessed Reason for Visit: Knee Pain [132] Cmt: Back side of L knee, area swelling out and warm to touch x 1 day Primary Visit Diagnosis:Acute pain of left knee [M25.562] Prescriptions as of 02/25/2025 - DULoxetine (CYMBALTA) 60 mg capsule Take 1 capsule by mouth every afternoon. - Brompheniramine-Pseud oeph-DM (BROMFED DM) 2-30-10 mg/5 mL syrup Take 10 mL by mouth four times a day as needed. - mv-min/iron/folic/bela cium/vitK (WOMEN'S MULTIVITAMIN ORAL) Take by mouth. - vibegron (GEMTESA) 75 mg tablet Take 75 mg by mouth once daily. - benzonatate (TESSALON PERLES) 100 mg capsule Take 1 capsule by mouth three times daily as needed for cough. - oxybutynin XL (DITROPAN XL) 5 mg 24 hr tablet - PROGESTERONE MICRONIZED ORAL Take by mouth. - PARoxetine (PAXIL) 20 mg tablet Take 10 mg by mouth once daily. Problem List As Of Date 02/25/2025 Noted Resolved Cervico-occipital neuralgia of the right side [*03/04/2014 Encounter Status:Closed by NAVDEEP TODD on 02/25/25 [facility] MIRNA TODD ([id number]) 1970 F Date Time Provider Department 12/18/24 JAMAR MORRISON [facility] During your visit today, we recorded the following information about you: Jamar Morrison APRN.CDC ASSOCIATE 12/18/2024 7:46 AM Signed No Significant urine growth on urine culture. Please notify patient. She should follow-up with primary care if symptoms persist. Maureen Prado OCCA 12/18/2024 2:33 PM Signed TC to patient who verbalized understanding of providers message below with no questions at this time. ROB Sims Allergies As of Date: 12/18/2024 (No Known Allergies) Date Reviewed: 12/16/2024 Reviewed by: Faviola Maharaj MA - Fully Assessed Reason for Visit: Results [95] Prescriptions as of 12/18/2024 - DULoxetine (CYMBALTA) 60 mg capsule Take 1 capsule by mouth every afternoon. - cephALEXin (KEFLEX) 500 mg capsule Take 1 capsule by mouth four times daily for 7 days. - Brompheniramine-Pseud oeph-DM (BROMFED DM) 2-30-10 mg/5 mL syrup Take 10 mL by mouth four times a day as needed. - mv-min/iron/folic/bela cium/vitK (WOMEN'S MULTIVITAMIN ORAL) Take by mouth. - vibegron (GEMTESA) 75 mg tablet Take 75 mg by mouth once daily. - benzonatate (TESSALON PERLES) 100 mg capsule Take 1 capsule by mouth three times daily as needed for cough. - oxybutynin XL (DITROPAN XL) 5 mg 24 hr tablet - PROGESTERONE MICRONIZED ORAL Take by mouth. - PARoxetine (PAXIL) 20 mg tablet Take 10 mg by mouth once daily. Problem List As Of Date 12/18/2024 Noted Resolved Cervico-occipital neuralgia of the right side [*03/04/2014 Encounter Status:Closed by MAUREEN PRADO on 12/18/24 Normal [facility] Bacteria Ur Culton 5 Bacteria identified Cx Nom (U) ORGANISM ID: 1 50,000-<100,000 CFU/ml Normal urogenital lachelle Normal [facility] Comment on above: Performed By: #### 6 30-4 #### [facility] CLIA [id number] [address] [place] [address] OF [facility] CNOVon 12-16-2024 CNOV Office Visit ([facility] ) MIRNA TODD ([id number]) 1970 F Date Time Provider Department 12/16/24 4:45 PM BHUPINDER MALIN [facility] During your visit today, we recorded the following information about you: Temperature Pulse Respiration Blood pressure 97.9 degrees 108/minute 19/minute 148/90 Weight 59 kg Bhupinder Malin PA-C 12/16/2024 5:16 PM Signed This note was created using Bloc. Subjective Mirna Todd is a 54 year old female. Patient is a 54-year-old female who complains of mild dysuria, urinary urgency and urinary frequency that she has been experiencing for approximately the past 1 week. Patient denies fever, chills, hematuria, flank pain, nausea or other symptoms. Patient states that she does have a history of urinary tract infection and that her current symptoms are consistent with same. Patient also reports that she has experienced episodes of UTI where the initial urinalysis was negative, however subsequent urine cultures did grow Escherichia coli. Patient is followed by a urologist for her urinary urgency and frequency issues. Review of Systems Genitourinary: Positive for dysuria, frequency and urgency. All other systems reviewed and are negative. Objective BP 148/90 Pulse 108 Temp 36.6 ?C (97.9 ?F) Resp 19 Wt 59 kg (130 lb 1.1 oz) LMP 11/05/2016 SpO2 100% Physical Exam Vitals and nursing note reviewed. Constitutional: Appearance: Normal appearance. She is normal weight. HENT: Head: Normocephalic and atraumatic. Right Ear: External ear normal. Left Ear: External ear normal. Nose: Nose normal. Mouth/Throat: Mouth: Mucous membranes are moist. Pharynx: Oropharynx is clear. Eyes: Extraocular Movements: Extraocular movements intact. Conjunctiva/sclera: Conjunctivae normal. Pupils: Pupils are equal, round, and reactive to light. Cardiovascular: Rate and Rhythm: Normal rate. Pulses: Normal pulses. Heart sounds: Normal heart sounds. Pulmonary: Effort: Pulmonary effort is normal. Breath sounds: Normal breath sounds. Abdominal: General: Abdomen is flat. Palpations: Abdomen is soft. Musculoskeletal: Cervical back: Normal range of motion and neck supple. Skin: General: Skin is warm and dry. Capillary Refill: Capillary refill takes less than 2 seconds. Neurological: General: No focal deficit present. Mental Status: She is alert and oriented to person, place, and time. Psychiatric: Mood and Affect: Mood normal. Behavior: Behavior normal. Thought Content: Thought content normal. Judgment: Judgment normal. Assessment and Plan Physical exam findings as noted above. Urinalysis is negative and urine culture was ordered. Given the patient's clinical presentation and history, she was provided with a prescription for Keflex 500 mg. Patient was advised that results of the urine culture be available in 2 days. Patient was informed that if the urine culture shows no growth she will be instructed to discontinue the Keflex as prescribed. Patient verbalizes clear understanding of the above instructions. CLINICAL IMPRESSION: Urinary Urgency and Frequency; History of Recurrent E. Coli UTI ASSESSMENT/PLAN: 1. Urinary frequency - ICD9: 788.41, ICD10: R35.0 - UA DIP, URINE (POC) - BACTERIAL CULTURE, URINE - CEPHALEXIN 500 MG CAPSULE Bhupinder Malin PA-C Allergies As of Date: 12/16/2024 (No Known Allergies) Date Reviewed: 12/16/2024 Reviewed by: Faviola Maharaj MA - Fully Assessed Reason for Visit: Urinary Problem [252] Cmt: Burning, frequency, urgency x 1 week Primary Visit Diagnosis:Urinary frequency [R35.0] Order(s):UA DIP, URINE (POC) [[id number]] Order #: [id number]. #:[id number] BACTERIAL CULTURE, URINE [SQURCUL] Order #: [id number]. #:[id number] cephALEXin (KEFLEX) 500 mg capsuleTake 1 capsule by mouth four times daily for 7 days.Disp: 28 capsuleRfl: 0 Prescriptions as of 12/16/2024 - DULoxetine (CYMBALTA) 60 mg capsule Take 1 capsule by mouth every afternoon. - cephALEXin (KEFLEX) 500 mg capsule Take 1 capsule by mouth four times daily for 7 days. - Brompheniramine-Pseud oeph-DM (BROMFED DM) 2-30-10 mg/5 mL syrup Take 10 mL by mouth four times a day as needed. - mv-min/iron/folic/bela cium/vitK (WOMEN'S MULTIVITAMIN ORAL) Take by mouth. - vibegron (GEMTESA) 75 mg tablet Take 75 mg by mouth once daily. - benzonatate (TESSALON PERLES) 100 mg capsule Take 1 capsule by mouth three times daily as needed for cough. - oxybutynin XL (DITROPAN XL) 5 mg 24 hr tablet - PROGESTERONE MICRONIZED ORAL Take by mouth. - PARoxetine (PAXIL) 20 mg tablet Take 10 mg by mouth once daily. Problem List As Of Date 12/16/2024 Noted Resolved Cervico-occipital neuralgia of the right side [*03/04/2014 Prescriptions ordered this encounter Disp Refills Start End CEPHALEXIN 500 MG CAPSULE 28 c* (more content not included)... Normal [facility] UA DIP, URINE (POC)on 2024 BILIRUBIN UA (POCT) Negative Negative [facility] CLARITY UA (POCT) [facility] COLOR UA (POCT) Light yellow [facility] GLUCOSE UA (POCT) Negative Negative mg/dL [facility] Hemoglobin Ql (U) Negative Negative [facility] KETONE UA (POCT) Negative Negative mg/dL [facility] LEUKOCYTES UA (POCT) Negative Negative [facility] NITRITE UA (POCT) Negative Negative [facility] PH UA (POCT) 7.0 4.5 - 8.0 [facility] Protein Ql (U) Negative Negative mg/dL [facility] SPECIFIC GRAVITY UA (POCT) 1.015 1.005 - 1.030 [facility] UROBILINOGEN UA (POCT) 0.2 Brittany l E.U./dL [facility] Location:[address], [place], [place], [id number] [place] [address] [facility] .Auto Diffon 06-10-2024 Basophil, Absolute 0.0 10 3/mcL Normal 0.0-0.2 [facility] ([place]) Comment on above: Performed By: #### C MP, CBC, LIP, MDW, ANEU, ADIFF, GFR #### [place] [place], [place] [address] Basophils/100 WBC (Bld) 0.8 % Normal 0.0-2.5 [facility] ([place]) Comment on above: Performed By: #### C MP, CBC, LIP, MDW, ANEU, ADIFF, GFR #### [facility] [address] [place], [place] [address] Eosinophil, Absolute 0.1 10 3/mcL Normal 0.0-0.4 [facility] 1928[facility] ([place]) Comment on above: Performed By: #### C MP, CBC, LIP, MDW, ANEU, ADIFF, GFR #### [address] [address] Eosinophils/100 WBC (Bld) 1.5 % Normal 0.0-7.0 [facility] ([place]) Comment on above: Performed By: #### C MP, CBC, LIP, MDW, ANEU, ADIFF, GFR #### [address] [address] Lymphocyte, Absolute 1.7 10 3/mcL Normal 0.8-3.9 [facility] ([place]) Comment on above: Performed By: #### C MP, CBC, LIP, MDW, ANEU, ADIFF, GFR #### [address] [address] Lymphocytes/100 WBC (Bld) 33.2 % Normal 10.0-50.0 [facility] ([place]) Comment on above: Performed By: #### C MP, CBC, LIP, MDW, ANEU, ADIFF, GFR #### [address] [address] Monocyte, Absolute 0.4 10 3/mcL Normal 0.2-1.0 [facility] ([place]) Comment on above: Performed By: #### C MP, CBC, LIP, MDW, ANEU, ADIFF, GFR #### [address] [address] Monocytes/100 WBC (Bld) 7.3 % Normal 1.7-13.0 [facility] ([place]) Comment on above: Performed By: #### C MP, CBC, LIP, MDW, ANEU, ADIFF, GFR #### [address] [address] Neutrophils/100 WBC (Bld) 57.2 % Normal 37.0-80.0 [facility] ([place]) Comment on above: Performed By: #### C MP, CBC, LIP, MDW, ANEU, ADIFF, GFR #### [address] [address] .GFRon 06-10-2024 GFR 80 ml/min/1.73sqm Normal [facility] ([place]) Comment on above: Result Comment: GFR Population mean for , Non- Americans Ages 20-29 = 116 mL/min/1.73 sq.m. Ages 30-39 = 107 mL/min/1.73 sq.m. Ages 40-49 = 99 mL/min/1.73 sq.m. Ages 50-59 = 93 mL/min/1.73 sq.m. Ages 60-69 = 85 mL/min/1.73 sq.m. Ages 70+ = 75 mL/min/1.73 sq.m. Chronic Kidney Disease: Less than 60 mL/min/1.73 square meters End Stage Renal Disease: Less than 15 mL/min/1.73 square meters Performed By: #### C MP, CBC, LIP, MDW, ANEU, ADIFF, GFR #### [address] [address] GFR Non- 66 ml/min/1.73sqm Normal [facility] ([place]) Comment on above: Result Comment: GFR Population mean for , Non- Americans Ages 20-29 = 116 mL/min/1.73 sq.m. Ages 30-39 = 107 mL/min/1.73 sq.m. Ages 40-49 = 99 mL/min/1.73 sq.m. Ages 50-59 = 93 mL/min/1.73 sq.m. Ages 60-69 = 85 mL/min/1.73 sq.m. Ages 70+ = 75 mL/min/1.73 sq.m. Chronic Kidney Disease: Less than 60 mL/min/1.73 square meters End Stage Renal Disease: Less than 15 mL/min/1.73 square meters Performed By: #### C MP, CBC, LIP, MDW, ANEU, ADIFF, GFR #### [address] [address] .MDWon 06-10-2024 Monocyte Distribution Width 17.26 Normal 0.00-20.00 [facility] ([place]) Comment on above: Result Comment: For ED adult patients suspected of sepsis, MDW<=20.0 does not rule out sepsis or risk of sepsis Performed By: #### C MP, CBC, LIP, MDW, ANEU, ADIFF, GFR #### [place] [address] .NEUABSon 06-10-2024 Neutrophil, Absolute 2.9 10 3/mcL Normal 2.9-6.2 [facility] ([place]) Comment on above: Performed By: #### C MP, CBC, LIP, MDW, ANEU, ADIFF, GFR #### [place] [address] CBCon 06-10-2024 Erythrocyte distribution width (RBC) [Ratio] 13.3 % Normal 11.5-14.5 [facility] ([place]) Comment on above: Performed By: #### C MP, CBC, LIP, MDW, ANEU, ADIFF, GFR #### [place] [address] Hematocrit (Bld) [Volume fraction] 39.7 % Normal 37.0-47.0 [facility] ([place]) Comment on above: Performed By: #### C MP, CBC, LIP, MDW, ANEU, ADIFF, GFR #### [place] [address] Hgb 13.9 G/dL Normal 12.0-16.0 [facility] ([place]) Comment on above: Performed By: #### C MP, CBC, LIP, MDW, ANEU, ADIFF, GFR #### [place] [address] MCH (RBC) [Entitic mass] 32.4 pg High 27.0-31.2 [facility] ([place] Comment on above: Performed By: #### C MP, CBC, LIP, MDW, ANEU, ADIFF, GFR #### [place] [address] MCHC 35.0 G/dL Normal 33.0-37.0 [facility] ([place] Comment on above: Performed By: #### C MP, CBC, LIP, MDW, ANEU, ADIFF, GFR #### [address] [address] MCV (RBC) [Entitic vol] 92.6 fL Normal 80.0-94.0 [facility] ([place] Comment on above: Performed By: #### C MP, CBC, LIP, MDW, ANEU, ADIFF, GFR #### [address] [address] Platelet 243 10 3/mcL Normal 130-400 [facility] ([place]) Comment on above: Performed By: #### C MP, CBC, LIP, MDW, ANEU, ADIFF, GFR #### [address] [address] Platelet mean volume (Bld) [Entitic vol] 7.2 fL Low 7.4-10.4 [facility] ([place] Comment on above: Performed By: #### C MP, CBC, LIP, MDW, ANEU, ADIFF, GFR #### [address] [address] RBC 4.29 10 6/mcL Normal 4.20-5.40 [facility] ([place]) Comment on above: Performed By: #### C MP, CBC, LIP, MDW, ANEU, ADIFF, GFR #### [address] [address] WBC 5.1 10 3/mcL Normal 4.6-10.8 [facility] ([place] Comment on above: Performed By: #### C MP, CBC, LIP, MDW, ANEU, ADIFF, GFR #### [address] [address] CMPon 06-10-2024 Albumin Level 4.3 G/dL Normal 3.5-5.0 [facility] ([place] Comment on above: Performed By: #### C MP, CBC, LIP, MDW, ANEU, ADIFF, GFR #### [address] [address] Albumin/Globulin [Mass ratio] 1.4 {ratio} Normal 1.1-2.5 [facility] ([place] Comment on above: Performed By: #### C MP, CBC, LIP, MDW, ANEU, ADIFF, GFR #### [address] [address] ALP [Catalytic activity/Vol] 86 U/L Normal 40-135 [facility] ([place]) Comment on above: Performed By: #### C MP, CBC, LIP, MDW, ANEU, ADIFF, GFR #### [address] [address] ALT [Catalytic activity/Vol] 19 U/L Normal 14-59 [facility] ([place] Comment on above: Performed By: #### C MP, CBC, LIP, MDW, ANEU, ADIFF, GFR #### [address] [address] AST [Catalytic activity/Vol] 17 U/L Normal 10-40 [facility] ([place] Comment on above: Performed By: #### C MP, CBC, LIP, MDW, ANEU, ADIFF, GFR #### [address] [address] Bili Total 1.6 mg/dL High 0.2-1.0 [facility] ([place]) Comment on above: Result Comment: Use of this assay is not recommended for patients undergoing treatment with eltrombopag due to the potential for falsely elevated results. Performed By: #### C MP, CBC, LIP, MDW, ANEU, ADIFF, GFR #### [address] [address] BUN/Creatinine Ratio 20 ratio Normal 7-27 [facility] ([place]) Comment on above: Performed By: #### C MP, CBC, LIP, MDW, ANEU, ADIFF, GFR #### [address] [address] Calcium [Mass/Vol] 9.7 mg/dL Normal 8.4-10.2 [facility] ([place]) Comment on above: Performed By: #### C MP, CBC, LIP, MDW, ANEU, ADIFF, GFR #### [address] [address] Chloride [Moles/Vol] 104 mmol/L Normal 98-107 [facility] ([place]) Comment on above: Performed By: #### C MP, CBC, LIP, MDW, ANEU, ADIFF, GFR #### [address] [address] CO2 [Moles/Vol] 29 mmol/L Normal 22-29 [facility] ([place]) Comment on above: Performed By: #### C MP, CBC, LIP, MDW, ANEU, ADIFF, GFR #### [address] [address] Creatinine [Mass/Vol] 0.89 mg/dL Normal 0.55-1.02 [facility] ([place]) Comment on above: Performed By: #### C MP, CBC, LIP, MDW, ANEU, ADIFF, GFR #### [place] [id number] Electrolyte Balance 11.0 mEq/L Normal 4.0-15.0 [facility] ([place]) Comment on above: Performed By: #### C MP, CBC, LIP, MDW, ANEU, ADIFF, GFR #### [address] [address] Globulin 3.0 G/dL Normal [facility] ([place]) Comment on above: Performed By: #### C MP, CBC, LIP, MDW, ANEU, ADIFF, GFR #### [address] [address] Glucose [Mass/Vol] 117 mg/dL High 70-105 [facility] ([place]) Comment on above: Performed By: #### C MP, CBC, LIP, MDW, ANEU, ADIFF, GFR #### [address] [address] Potassium [Moles/Vol] 3.7 mmol/L Normal 3.5-5.1 [facility] ([place]) Comment on above: Performed By: #### C MP, CBC, LIP, MDW, ANEU, ADIFF, GFR #### [address] [place], [place] [address] Sodium [Moles/Vol] 144 mmol/L Normal 136-145 [facility] ([place]) Comment on above: Performed By: #### C MP, CBC, LIP, MDW, ANEU, ADIFF, GFR #### [address] [place], [place] [address] Total Protein 7.3 G/dL Normal 6.4-8.2 [facility] ([place]) Comment on above: Performed By: #### C MP, CBC, LIP, MDW, ANEU, ADIFF, GFR #### [address] [place], [place] [address] Urea nitrogen [Mass/Vol] 18 mg/dL Normal 7-18 [facility] ([place]) Comment on above: Performed By: #### C MP, CBC, LIP, MDW, ANEU, ADIFF, GFR #### [address] [address] [address] ABD/PELVIS W/ IV CONTRAST ONLYon 06-10-2024 CT ABD/PELVIS W/ IV CONTRAST ONLY ADDENDUM ADDENDUM: A 5 mm right lower lobe nodule. A 12 month follow-up may be considered in a high risk patient Interpreted by: Cas Lucio MD Preliminary Report By: Cas Lucio MD Electronically signed By Cas Lucio MD Dictated Date: 06/10/2024 2:33:41 PM Prelim Date: 06/10/2024 2:34:00 PM Sign Date: 06/10/2024 2:34:00 PM Ordering Provider: ZOHAIB RUST ORIGINAL EXAMINATION: CT OF THE ABDOMEN AND PELVIS WITH CONTRAST06/10/2024 1:45 pm TECHNIQUE: CT of the abdomen and pelvis was performed with the administration of intravenous contrast. Multiplanar reformatted images are provided for review. Automated exposure control, iterative reconstruction, and/or weight based adjustment of the mA/kV was utilized to reduce the radiation dose to as low as reasonably achievable. COMPARISON: None HISTORY: ORDERING SYSTEM PROVIDED HISTORY: Reason for Exam: lt sided abd pain, bloating, constipation. nausea at times. pain FINDINGS: Scarring seen in the left lower lobe. A subpleural nodule in the right lower lobe measures 5 mm on image 18. Other small subpleural nodules visualized... There is no visible pleural or pericardial effusion. The heart is normal in size. 2.5 cm lobulated hypodense lesion measuring 2.5 x 2 cm in posterior right lobe of liver near dome of diaphragm is likely a cyst or hemangioma, measuring 5 Hounsfield units. No other focal liver lesion. No intrahepatic biliary dilatation. The spleen, adrenal glands, and pancreas are within normal limits. The gallbladder shows hyperdense content within measuring 1 cm with central calcification suggestive of cholelithiasis. No pericholecystic fluid or gallbladder wall thickening. The kidneys enhance symmetrically. Bilateral subcentimeter hypodensities are too small to characterize but statistically simple cysts. No evidence of left hydronephrosis. Punctate 2 mm right upper pole calculus without obstruction. Mild prominence of right pelvicalyceal system, visualized proximal ureter is not dilated. No evidence of perinephric stranding. Irregular appearance of 2nd part of duodenum with eccentric wall thickening may be related to under distension. The large and small bowel demonstrate no obstruction. The appendix is not visualized. There is no pericecal inflammation. No free intraperitoneal fluid or gas is identified. The aorta is normal in caliber. There is mild atherosclerosis of the larger arteries. There is no lymphadenopathy. The pelvic structures are grossly unremarkable. No filling defects seen in the urinary bladder. The abdominal wall is unremarkable. There is no fracture or aggressive osseous lesion. Degenerative changes are present in the spine. IMPRESSION: 1. Cholelithiasis. No evidence of pericholecystic fluid or gallbladder wall thickening. 2. Right-sided nonobstructing punctate upper pole renal calculus. Mild prominence of right pelvicalyceal system is likely physiological. 3. Irregular appearance of 2nd part of duodenum with eccentric wall thickening which may be related to under distension. Suggested correlation with clinical history and further evaluation with endoscopy if required. . I have personally reviewed the images of this examination and agree with the resident's findings and interpretation. Interpreted by: Cas Lucio MD Preliminary Report By: Manuel Clark Electronically signed By Cas Lucio MD Dictated Date: 06/10/2024 1:49:23 PM Prelim Date: 06/10/2024 2:13:03 PM Sign Date: 06/10/2024 2:13:03 PM Ordering Provider: ZOHAIB Butcher [facility] ([place]) LABORATORYOrdered By: SYSTEM SYSTEM on 06-10-2024 Albumin BCP dye [Mass/Vol] 4.3 G/dL Normal 3.5 - 5.0 G/dL AO ADM SS Albumin/Globulin [Mass ratio] 1.4 {ratio} Normal 1.1 - 2.5 ratio AO ADM SS ALP [Catalytic activity/Vol] 86 U/L Normal 40 - 135 U/L AO ADM SS ALT With P-5'-P [Catalytic activity/Vol] 19 U/L Normal 14 - 59 U/L AO ADM SS AST With P-5'-P [Catalytic activity/Vol] 17 U/L Normal 10 - 40 U/L AO ADM SS Basophil, Absolute 0.0 103/mcL Normal 0.0 - 0.2 10^3/mcL AO Workflow SS Basophils/100 WBC (Bld) 0.8 % Normal 0.0 - 2.5 % AO Workflow SS Bilirubin [Mass/Vol] 1.6 mg/dL High 0.2 - 1 .0 mg/dL AO ADM SS Comment on above: Interpretive Data: U se of this assay is not recommended for patients undergoing treatment with eltrombopag due to the potential for falsely elevated results. Calcium [Mass/Vol] 9.7 mg/dL Normal 8.4 - 10. 2 mg/dL AO ADM SS Chloride [Moles/Vol] 104 mmol/L Normal 98 - 10 7 mmol/L AO ADM SS CO2 [Moles/Vol] 29 mmol/L Normal 22 - 29 mmol/L AO ADM SS Creatinine [Mass/Vol] 0.89 mg/dL Normal 0.55 - 1.02 mg/dL AO ADM SS Electrolyte Balance 11.0 mEq/L Normal 4.0 - 15 .0 mEq/L AO ADM SS Eosinophil, Absolute 0.1 103/mcL Normal 0.0 - 0 .4 10^3/mcL AO Workflow SS Eosinophils/100 WBC (Bld) 1.5 % Normal 0.0 - 7.0 % AO Workflow SS Erythrocyte distribution width (RBC) [Ratio] 13.3 % Normal 11.5 - 14.5 % AO Workflow SS GFR/1.73 sq M.predicted among blacks MDRD (S/P/Bld) [Vol rate/Area] 80 ml/min/1.73sqm Invalid Interpretation Code AO Chemistry S Comment on above: Interpretive Data: GFR Population mean for , Non- Americans Ages 20-29 = 116 mL/min/1.73 sq.m. Ages 30-39 = 107 mL/min/1.73 sq.m. Ages 40-49 = 99 mL/min/1.73 sq.m. Ages 50-59 = 93 mL/min/1.73 sq.m. Ages 60-69 = 85 mL/min/1.73 sq.m. Ages 70+ = 75 mL/min/1.73 sq.m. Chronic Kidney Disease: Less than 60 mL/min/1.73 square meters End Stage Renal Disease: Less than 15 mL/min/1.73 square meters GFR/1.73 sq M.predicted among non-blacks MDRD (S/P/Bld) [Vol rate/Area] 66 ml/min/1.73sqm Invalid Interpretation Code AO Chemistry S Comment on above: Interpretive Data: GFR Population mean for , Non- Americans Ages 20-29 = 116 mL/min/1.73 sq.m. Ages 30-39 = 107 mL/min/1.73 sq.m. Ages 40-49 = 99 mL/min/1.73 sq.m. Ages 50-59 = 93 mL/min/1.73 sq.m. Ages 60-69 = 85 mL/min/1.73 sq.m. Ages 70+ = 75 mL/min/1.73 sq.m. Chronic Kidney Disease: Less than 60 mL/min/1.73 square meters End Stage Renal Disease: Less than 15 mL/min/1.73 square meters Globulin 3.0 G/dL Invalid Interpretation Code AO ADM SS Glucose [Mass/Vol] 117 mg/dL High 70 - 105 mg/dL AO ADM SS Hematocrit (Bld) [Volume fraction] 39.7 % Normal 37.0 - 47.0 % AO Workflow SS Hemoglobin (Bld) [Mass/Vol] 13.9 G/dL Normal 12.0 - 16.0 G/dL AO Workflow SS Lipase [Catalytic activity/Vol] 61 U/L Normal 16 - 77 U/L AO ADM SS Lymphocyte, Absolute 1.7 103/mcL Normal 0.8 - 3 .9 10^3/mcL AO Workflow SS Lymphocytes/100 WBC (Bld) 33.2 % Normal 10.0 - 50.0 % AO Workflow SS MCH (RBC) [Entitic mass] 32.4 pg High 27.0 - 31.2 pg AO Workflow SS MCHC 35.0 G/dL Normal 33.0 - 37.0 G/dL AO Workflow SS MCV (RBC) [Entitic vol] 92.6 fL Normal 80.0 - 94.0 fL AO Workflow SS Monocyte distribution width Auto (Bld) [Entitic vol] 17.26 1 Normal 0.00 - 20.00 AO Workflow SS Comment on above: Result Comment: For ED adult patients suspected of sepsis, MDW<=20.0 does not rule out sepsis or risk of sepsis Monocyte, Absolute 0.4 103/mcL Normal 0.2 - 1.0 10^3/mcL AO Workflow SS Monocytes/100 WBC (Bld) 7.3 % Normal 1.7 - 13.0 % AO Workflow SS Neutrophil, Absolute 2.9 103/mcL Normal 2.9 - 6 .2 10^3/mcL AO Workflow SS Neutrophils/100 WBC (Bld) 57.2 % Normal 37.0 - 80.0 % AO Workflow SS Platelet mean volume (Bld) [Entitic vol] 7.2 fL Low 7.4 - 10.4 fL AO Workflow SS Platelets (Bld) [#/Vol] 243 103/mcL Normal 130 - 400 10^3/mcL AO Workflow SS Potassium [Moles/Vol] 3.7 mmol/L Normal 3.5 - 5.1 mmol/L AO ADM SS Protein [Mass/Vol] 7.3 G/dL Normal 6.4 - 8.2 G/dL AO ADM SS RBC (Bld) [#/Vol] 4.29 106/mcL Normal 4.20 - 5.4 0 10^6/mcL AO Workflow SS Sodium [Moles/Vol] 144 mmol/L Normal 136 - 145 mmol/L AO ADM SS Urea nitrogen [Mass/Vol] 18 mg/dL Normal 7 - 18 mg/dL AO ADM SS Urea nitrogen/Creatinine [Mass ratio] 20 ratio Normal 7 - 27 ratio AO ADM SS WBC (Bld) [#/Vol] 5.1 103/mcL Normal 4.6 - 10.8 10^3/mcL AO Workflow SS LABORATORYOrdered By: Ramon Arthur on 06-10-2024 Appearance (U) Clear (06/10/24 12:38 PM) Normal Clear AO Auto Urine SS Bilirubin Ql (U) Negative (06/10/24 12:38 PM) Normal Negative AO Auto Urine SS Color (U) Yellow (06/10/24 12:38 PM) Normal AO Auto Urine SS Glucose Test strip (U) [Mass/Vol] Negative Normal Negative AO Auto Urine SS Hemoglobin Auto test strip (U) [Mass/Vol] Negative (06/10/24 12:38 PM) Normal Negative AO Auto Urine SS Ketones Ql (U) Negative Normal Negative AO Auto Ur ine SS UA Leuk Est Negative (06/10/24 12:38 PM) Normal Negative AO Auto Urine SS UA Nitrite Negative (06/10/24 12:38 PM) Normal Negative AO Auto Urine SS UA pH 7.0 (06/10/24 12:38 PM) Normal 5.0 - 8.0 AO Auto Urine SS UA Protein Negative Normal Negative AO Auto Urine SS UA Spec Grav 1.020 (06/10/24 12:38 PM) Normal 1.015-1.025 AO Auto Urine SS UA Specimen Type Clean Catch (06/10/24 12:38 PM) Normal AO Auto Urine SS UA Urobilinogen 1.0 E.U./dL Normal 0.2-1.0 AO Auto Urine SS LIPon 06-10-2024 Lipase Level 61 U/L Normal 16-77 [facility] ([place]) Comment on above: Performed By: #### C MP, CBC, LIP, MDW, ANEU, ADIFF, GFR #### [address] [address] UAon 06-10-2024 Color (U) Yellow Normal [facility] ([place] Comment on above: Performed By: #### U A #### [address] [address] Glucose (U) [Mass/Vol] Negative Normal Negative [facility] ([place]) Comment on above: Performed By: #### U A #### [address] [address] Ketones Ql (U) Negative Normal Negative [facility] ([place] Comment on above: Performed By: #### U A #### [address] [address] UA Appear Clear Normal Clear [facility] ([place] Comment on above: Performed By: #### U A #### [place]arm[place] [address] [address] UA Blood Negative Normal Negative [facility] ([place] Comment on above: Performed By: #### U A #### [place] [address] UA Leuk Est Negative Normal Negative [facility] ([place] Comment on above: Performed By: #### U A #### [place] [address] UA Nitrite Negative Normal Negative [facility] ([place] Comment on above: Performed By: #### U A #### [place] [address] UA pH 7.0 Normal 5.0 - 8.0 [facility] ([place] Comment on above: Performed By: #### U A #### [address] [address] UA Protein Negative Normal Negative [facility] ([place] Comment on above: Performed By: #### U A #### [place] [address] UA Spec Grav 1.020 Normal 1.015-1.025 [facility] ([place] Comment on above: Performed By: #### U A #### [place] [address] UA Specimen Type Clean Catch Normal [facility] ([place] Comment on above: Performed By: #### U A #### [place] [address] UA Urobilinogen 1.0 E.U./dL Normal 0.2-1.0 [facility] ([place] Comment on above: Performed By: #### U A #### [place] [address] Urobilinogen (U) [Mass/Vol] Negative Normal Negative [facility] ([place] Comment on above: Performed By: #### U A #### [place] [address] [place], [place] [address] STREP A MOLECULAR (POC)on Procedural Control Valid [facility] Strep A (POCT) Negative Negative [facility] XR Chest PA and Lateralon Radiology Study observation (narrative) [facility] IMPRESSION: No acute radiographic abnormality. Assistant Head Cashier: PSCB Transcribe Date/Time: Apr 14 2024 1:09P Dictated by : MATILDE SCHULTZ MD This examination was interpreted and the report reviewed and electronically signed by: MATILDE SCHULTZ MD on Apr 14 2024 1:09PM [facility] DIVISION OF RADIOLOGY * * *Final Report* * * DATE OF EXAM: Apr 14 2024 1:05PM WOX 5291 - XR CHEST 2V FRONTAL/LAT / PROCEDURE REASON: Acute cough * * * * Physician Interpretation * * * * EXAMINATION: CHEST RADIOGRAPH (2 VIEW FRONTAL & LATERAL) CLINICAL HISTORY: Acute cough MQ: XC2_6 EXAM DATE/TIME: 04/14/2024 1:05 PM COMPARISON: 01/28/2023 RESULT: Lines, tubes, and devices: None. Lungs and pleura: No consolidation. No lung mass. No pleural effusion. No pneumothorax. Cardiomediastinal silhouette: Normal cardiomediastinal silhouette. Bones and soft tissues: Unremarkable. DIVISION OF RADIOLOGY Provider, [facility] - 04/14/2024 * * *Final Report* * * DATE OF EXAM: Apr 14 2024 1:05PM WOX 5291 - XR CHEST 2V FRONTAL/LAT / PROCEDURE REASON: Acute cough * * * * Physician Interpretation * * * * EXAMINATION: CHEST RADIOGRAPH (2 VIEW FRONTAL & LATERAL) CLINICAL HISTORY: Acute cough MQ: XC2_6 EXAM DATE/TIME: 04/14/2024 1:05 PM COMPARISON: 01/28/2023 RESULT: Lines, tubes, and devices: None. Lungs and pleura: No consolidation. No lung mass. No pleural effusion. No pneumothorax. Cardiomediastinal silhouette: Normal cardiomediastinal silhouette. Bones and soft tissues: Unremarkable. IMPRESSION IMPRESSION: No acute radiographic abnormality. Assistant Head Cashier: PSCB Transcribe Date/Time: Apr 14 2024 1:09P Dictated by : MATILDE SCHULTZ MD This examination was interpreted and the report reviewed and electronically signed by: MATILDE SCHULTZ MD on Apr 14 2024 1:09PM EST [facility] XR Chest PA and LateralOrder ed By: [facility] Provider on 04-14-2024 [facility] STREP A MOLECULAR (POC)on Procedural Control Valid [facility] Strep A (POCT) Negative Negative [facility] Absolute lymphocyte countOrd ered By: Aroldo Gordon on 07-31-2023 Lymphocytes Auto (Unsp spec) [#/Vol] 1.45 10*3/uL 0.83-4.51 [facility] Basophil percentageOrdered B y: Aroldo Gordon on 07-31-2023 Basophils/100 WBC (Bld) 0.8 % 0-1 [facility] Bilirubin [Mass/Vol] 1.90 mg/dL 0.20-1.00 [facility] Comment on above: For patients on eltr ombopag therapy, use of Dimension [place] TBIL is not recommended. Chloride [Moles/Vol] 107 mmol/L 98-107 [facility] Eosinophils/100 WBC (Bld) 1.6 % 0-5 [facility] Glucose [Mass/Vol] 114 mg/dL 74-106 [facility] Comment on above: Fasting Glucose resu lt from 100 to 125 mg/dL suggests IMPAIRED HOMEOSTASIS per A.D.A. criteria. Neutrophils (Bld) [#/Vol] 3.1 10*3/uL 2.0-7.7 [facility] Neutrophils/100 WBC (Bld) 60.9 % 47-70 [facility] Potassium [Moles/Vol] 4.2 mmol/L 3.5-5.1 [facility] Protein [Mass/Vol] 7.2 g/dL 6.4-8.2 [facility] Sodium [Moles/Vol] 140 mmol/L 136-145 [facility] WBC (Bld) [#/Vol] 5.1 10*3/uL 4.4-11.0 [facility] Blood erythrocytes count (nu mber/volume)Ordered By: Aroldo Gordon on 07-31-2023 RBC (Bld) [#/Vol] 4.42 10*6/uL 4.2-5.4 [facility] Blood hemoglobin measurement (mass/volume)Ordered By: Aroldo Gordon on 07-31-2023 Hemoglobin (Bld) [Mass/Vol] 13.9 g/dL 12.0-15.0 [facility] Blood lymphocytes/100 leukoc ytesOrdered By: Aroldo Gordon on 07-31-2023 Lymphocytes/100 WBC (Bld) 28.3 % 19-41 [facility] Blood monocytes/100 leukocyt esOrdered By: Aroldo Gordon on 07-31-2023 Monocytes/100 WBC (Bld) 8.0 % 0-10 [facility] Blood platelet mean volumeOr dered By: Aroldo Gordon on 07-31-2023 Platelet mean volume (Bld) [Entitic vol] 9.1 fL 6.2-12.0 [facility] Determination of erythrocyte mean corpuscular volume (MCV)Ordered By: Aroldo Gordon on 07-31-2023 MCV (RBC) [Entitic vol] 95.9 fL 81-99 [facility] Direct bilirubinOrdered By: Aroldo Gordon on 07-31-2023 Bilirubin.direct [Mass/Vol] 0.37 mg/dL 0.00-0.30 [facility] Hematocrit Auto (Bld) [Volum e fraction]Ordered By: Aroldo Gordon on 07-31-2023 Hematocrit (Bld) [Volume fraction] 42.4 % 37-47 [facility] Laboratory - Chemistry and C hemistry - challengeOrdered By: Aroldo Gordon on 07-31-2023 ALP [Catalytic activity/Vol] 63 U/L 45-117 [facility] ALT [Catalytic activity/Vol] 29 U/L 13-56 [facility] CO2 [Moles/Vol] 29.0 mmol/L 21.0-32.0 [facility] Globulin (S) [Mass/Vol] 3.1 g/dL 2.2-4.2 [facility] Lipase [Catalytic activity/Vol] 57 U/L 13-75 [facility] Comment on above: Please note:LIPASE r evised reference range effective 23. New Lipase methodology. Expected to produce lower values than the previous assay method. NEW Reference Range: 13 - 75 U/L Urea nitrogen/Creatinine [Mass ratio] 15.8 mg/mg 10-20 [facility] Laboratory - Hematology and Cell countsOrdered By: Aroldo Gordon on 07-31-2023 Erythrocyte distribution width (RBC) [Entitic vol] 45.6 fL 35.1-43.9 [facility] Erythrocyte distribution width (RBC) [Ratio] 12.8 % 11.6-14.6 [facility] Immature granulocytes/100 WBC (Bld) 0.400 % 0.0-0.9 [facility] Comment on above: IG% - Immature Granu locytes (promyelocytes, myelocytes and metamyelocytes) > 1% indicates that a LEFT SHIFT is Present. MCH (RBC) [Entitic mass] 31.4 pg 27.0-32.0 [facility] Nucleated RBC/100 WBC (Bld) [Ratio] 0 % 0-5 [facility] MCHC Auto (RBC) [Mass/Vol]Or dered By: Aroldo Gordon on 07-31-2023 MCHC (RBC) [Mass/Vol] 32.8 g/dL 32-36 [facility] No Panel InformationOrdered By: Aroldo Gordon on 07-31-2023 Troponin I High Sensitivity 4 pg/mL 3.0-54.0 [facility] Comment on above: Please Note: New [place] t Units and Gender Specific Reference Ranges. For more information see Policy Stat Procedure [place] High Sensitivity Troponin (TNIH) and attachments. D-Dimer Quantitative (PE/DVT) < 0.27 FEU/ug/m 0.27-0.49 [facility] Comment on above: NORMAL D-Dimer level (<0.50) indicates no DVT or PE. Estimated Creatinine Clearance Calc 62.28 ml/min [facility] Estimated GFR (MDRD) Amer 79 mL/min >60 [facility] Comment on above: GFR Calc Estimated GFR (MDRD) Non-Af Amer 65 mL/min >60 [facility] Comment on above: Non- GFR Calc Platelets bldOrdered By: Drake Gordon on 07-31-2023 Platelets (Bld) [#/Vol] 241 10*3/uL 150-450 [facility] Serum or plasma albumin karol urement (mass/volume)Ordered By: Aroldo Gordon on 07-31-2023 Albumin [Mass/Vol] 4.1 g/dL 3.2-5.0 [facility] Serum or plasma calcium karol urement (mass/volume)Ordered By: Aroldo Gordon on 07-31-2023 Calcium [Mass/Vol] 9.2 mg/dL 8.5-10.1 [facility] Serum or plasma creatinine m easurement (mass/volume)Ordered By: Aroldo Gordon on 07-31-2023 Creatinine [Mass/Vol] 0.95 mg/dL 0.55-1.02 [facility] Comment on above: The validity of the calculated GFR & GFRAA in patients over 70 years has not been determined. Clinical correlation is essential. Serum or plasma urea nitroge n measurement (mass/volume)Ordered By: Aroldo Gordon on 07-31-2023 Urea nitrogen [Mass/Vol] 15 mg/dL 7-18 [facility] Thin prep Papanicolaou smear with manual screeningOrdered By: Aroldo Gordon on 07-31-2023 Thin prep Papanicolaou smear with manual screening 18 U/L 15-37 [facility] Thin prep Papanicolaou smear with manual screening 4 5-15 [facility] UA DIP, URINE (POC)on 2022 BILIRUBIN UA (POCT) Negative Negative [facility] CLARITY UA (POCT) Clear [facility] COLOR UA (POCT) Yellow [facility] GLUCOSE UA (POCT) Negative Negative mg/dL [facility] HEMOGLOBIN/BLOOD UA (POCT) Moderate Abnormal Negative [facility] KETONE UA (POCT) Negative Negative mg/dL [facility] LEUKOCYTES UA (POCT) Moderate Abnormal Negative [facility] NITRITE UA (POCT) Negative Negative [facility] PH UA (POCT) 6.5 4.5 - 8.0 [facility] Protein Ql (U) 30 mg/dL Abnormal Negative mg/dL [facility] SPECIFIC GRAVITY UA (POCT) 1.025 1.005 - 1.030 [facility] UROBILINOGEN UA (POCT) 0.2 E.U./dL Brittany l E.U./dL [facility] XR Chest PA and Lateralon IMPRESSION: No acute radiographic abnormality. Assistant Head Cashier: KANDACE Transcribe Date/Time: Jan 28 2023 12:25P Dictated by : DIANNE GARCIA MD This examination was interpreted and the report reviewed and electronically signed by: DIANNE GARCIA MD on Jan 28 2023 12:26PM [facility] DIVISION OF RADIOLOGY * * *Final Report* * * DATE OF EXAM: Jan 28 2023 12:06PM WOX 5291 - XR CHEST 2V FRONTAL/LAT / PROCEDURE REASON: multiple diagnoses * * * * Physician Interpretation * * * * EXAMINATION: CHEST RADIOGRAPH (2 VIEW FRONTAL & LATERAL) CLINICAL HISTORY: Acute cough Bronchitis MQ: XC2_6 EXAM DATE/TIME: 01/28/2023 12:06 PM COMPARISON: No relevant prior studies available. RESULT: Lines, tubes, and devices: None. Lungs and pleura: No consolidation. No lung mass. No pleural effusion. No pneumothorax. Cardiomediastinal silhouette: Normal cardiomediastinal silhouette. Bones and soft tissues: Unremarkable. DIVISION OF RADIOLOGY Provider, [facility] - 01/28/2023 * * *Final Report* * * DATE OF EXAM: Jan 28 2023 12:06PM WOX 5291 - XR CHEST 2V FRONTAL/LAT / PROCEDURE REASON: multiple diagnoses * * * * Physician Interpretation * * * * EXAMINATION: CHEST RADIOGRAPH (2 VIEW FRONTAL & LATERAL) CLINICAL HISTORY: Acute cough Bronchitis MQ: XC2_6 EXAM DATE/TIME: 01/28/2023 12:06 PM COMPARISON: No relevant prior studies available. RESULT: Lines, tubes, and devices: None. Lungs and pleura: No consolidation. No lung mass. No pleural effusion. No pneumothorax. Cardiomediastinal silhouette: Normal cardiomediastinal silhouette. Bones and soft tissues: Unremarkable. IMPRESSION IMPRESSION: No acute radiographic abnormality. Assistant Head Cashier: KANDACE Transcribe Date/Time: Jan 28 2023 12:25P Dictated by : DIANNE GARCIA MD This examination was interpreted and the report reviewed and electronically signed by: DIANNE GARCIA MD on Jan 28 2023 12:26PM EST [facility] Radiology Study observation (narrative) [facility] XR Chest PA and LateralOrder ed By: [facility] Provider on 01-28-2023 [facility] Cervical or vagninal specime n microscopic examination by cytology stain (reported ason 02-16-2022 Cytology report Cyto stain Doc (Cvx/Vag) Comment . [facility] Work Phone: Comment on above: The Pap smear is a s creening test designed to aid in thedetection of premalignant and malignant conditions of theuterine cervix. It is not a diagnostic procedure andshould not be used as the sole means of detecting cervicalcancer. Both false-positive and false-negative reports dooccur. Detection in cervical specim en of any of human papilloma virus (HPV) 16, 18, 31, 33,on 02-16-2022 HPV 16+18+31+33+35+39+45+5 1+52+56+58+59+66+68 DNA Probe+sig amp Ql (Cvx) Negative Negative [facility] Work Phone: Comment on above: This nucleic acid am plification test detects fourteen high- risk HPV types (16,18,31,33,35,39,45,51,52,56,58,59,66,68)without differentiation.Performed at: - [facility] [id number] Director: Jazlyn Kaur MD, Phone: [phone] at: =[facility] [id number] Director: Jazlyn Kaur MD, Phone: [phone] Laboratory - Cytologyon Cell Pourer Cyto stain Nom (Cvx/Vag) [ID] Comment . [facility] Work Phone: Comment on above: Héctor Willingham, Cyto technologist (ASCP) Laboratory - Miscellaneous t estson 02-16-2022 Service comment (Unsp spec) [Interp] Comment . [facility] Work Phone: Comment on above: This liquid based Th inPrep(R) pap test was screened withthe use of an image guided system. Service comment (Unsp spec) [Interp] . . [facility] Work Phone: No Panel Informationon 02-16 Pathology report final diagnosis Narrative Comment . [facility] Work Phone: Comment on above: NEGATIVE FOR INTRAEP ITHELIAL LESION OR MALIGNANCY. [place] [facility] Note on 05-21-2017 [place] [facility] Note Normal [facility] Patient Summary Documentson 05-19-2017 Patient Summary Documents Normal [facility] test (u)on 017 test (u) Negative Normal [facility] Comment on above: Order Comment: CBN Result Comment: HCG not detected. Performed By: #### P REGU ####[address] [address] Urinalysis (AO)on 05-19-2017 Bilirubin (total) Negative Normal NEGATIVE [facility] Comment on above: Order Comment: CBN Performed By: #### U AO ####[address] [address] Glucose mass conc Negative Normal NEGATIVE [facility] Comment on above: Order Comment: CBN Performed By: #### U AO ####[address] [address] Hemoglobin mass conc (Bld) TRACE-INTACT Abnormal NEG - TRACE [facility] Comment on above: Order Comment: CBN Performed By: #### U AO ####[address] [address] pH of blood 6.0 [pH] Normal 5.0 - 8.0 [facility] Comment on above: Order Comment: CBN Performed By: #### U AO ####[address] [address] Protein Negative Normal NEG - TRACE [facility] Comment on above: Order Comment: CBN Performed By: #### U AO ####[address] [address] Urine, appearance CLEAR Normal CLEAR [facility] Comment on above: Order Comment: CBN Performed By: #### U AO ####[place]arm[place] [address] [address] Urine, color YELLOW Normal [facility] Comment on above: Order Comment: CBN Performed By: #### U AO ####[place] [address] [address] Urine, ketones presence Negative Normal NEGATIVE [facility] Comment on above: Order Comment: CBN Performed By: #### U AO ####[place] [address] [address] Urine, nitrite presence Negative Normal NEGATIVE [facility] Comment on above: Order Comment: CBN Performed By: #### U AO ####[place] [address] Urine, specific gravity <=1.005 Abnormal 1.015-1.025 [facility] Comment on above: Order Comment: CBN Performed By: #### U AO ####[place] [address] [address] Urine, urobilinogen 0.2 {Yogi'U}/dL Normal NORMAL [facility] Comment on above: Order Comment: CBN Performed By: #### U AO ####[place] [address] [address] WBC (Leukocytes) Negative Normal NEGATIVE [facility] Comment on above: Order Comment: CBN Performed By: #### U AO ####[place] [address] [address] Specimen type (u) VOID Normal [facility] Comment on above: Order Comment: CBN Performed By: #### U AO ####[place] [id number] Vital Signs Date Time Vital Sign Value Performing Clinician Facility 02-25-2025 17:52-0400 Body temperature 97 [degF] Navdeep Todd APRN.CDC ASSOCIATE Work Phone: [facility] 02-25-2025 17:52-0400 Body weight 57 kg Navdeep Todd SEED CORE OPERATOR.CDC ASSOCIATE Work Phone: [facility] 02-25-2025 17:52-0400 Diastolic blood pressure 99 mm[Hg] Navdeep Todd SEED CORE OPERATOR.CDC ASSOCIATE Work Phone: [facility] 02-25-2025 17:52-0400 Heart rate 138 /min Navdeep Todd SEED CORE OPERATOR.CDC ASSOCIATE Work Phone: [facility] 02-25-2025 17:52-0400 Respiratory rate 20 /min Navdeep Todd SEED CORE OPERATOR.CDC ASSOCIATE Work Phone: [facility] 02-25-2025 17:52-0400 SaO2% (BldA) [Mass fraction] 99 % Navdeep Todd SEED CORE OPERATOR.CDC ASSOCIATE Work Phone: [facility] 02-25-2025 17:52-0400 Systolic blood pressure 136 mm[Hg] Navdeep Todd SEED CORE OPERATOR.CDC ASSOCIATE Work Phone: [facility] 12-16-2024 17:02-0500 Body temperature 97.9 [degF] Bhupinder Clutter PA-C Work Phone: [facility] 12-16-2024 17:02-0500 Body weight 59 kg Bhupinder Clutter PA-C Work Phone: [facility] 12-16-2024 17:02-0500 Diastolic blood pressure 90 mm[Hg] Bhupinder Clutter PA-C Work Phone: [facility] 12-16-2024 17:02-0500 Heart rate 108 /min Bhupinder Clutter PA-C Work Phone: [facility] 12-16-2024 17:02-0500 Respiratory rate 19 /min Bhupinder Clutter PA-C Work Phone: [facility] 12-16-2024 17:02-0500 SaO2% (BldA) [Mass fraction] 100 % Bhupinder Clutter PA-C Work Phone: [facility] 01-29-2025 17:02-0500 Systolic blood pressure 148 mm[Hg] Bhupinder Malin PA-C Work Phone: [facility] 06-10-2024 13:52-0400 Heart rate 96 /min ZOHAIB RUST MD [facility] 06-10-2024 13:52-0400 Respiratory rate 18 /min ZOHAIB RUST MD [facility] 06-10-2024 12:40-0400 Body height 165.1 cm ZOHAIB RUST MD [facility] 06-10-2024 12:40-0400 Body temperature 98.42 [degF] ZOHAIB RUST MD [facility] 06-10-2024 12:40-0400 Body weight 58.8 kg ZOHAIB RUST MD [facility] 06-10-2024 12:40-0400 Diastolic Blood Pressure Non-Invasive 88 mm[Hg] ZOHAIB RUST MD [facility] 06-10-2024 12:40-0400 Heart rate 118 /min ZOHAIB RUST MD [facility] 06-10-2024 12:40-0400 Respiratory rate 20 /min ZOHAIB RUST MD [facility] 06-10-2024 12:40-0400 Systolic Blood Pressure Non-Invasive 137 mm[Hg] ZOHAIB RUST MD [facility] 04-14-2024 12:50-0400 Body temperature 98.4 [degF] Dana GALVIN Work Phone: [facility] 04-14-2024 12:50-0400 Body weight 58.6 kg Krislyn Aberegg PA Work Phone: [facility] 04-14-2024 12:50-0400 Diastolic blood pressure 72 mm[Hg] Krislyn Aberegg PA Work Phone: [facility] 04-14-2024 12:50-0400 Heart rate 102 /min Krislyn Aberegg PA Work Phone: [facility] 04-14-2024 12:50-0400 Respiratory rate 16 /min Krislyn Aberegg PA Work Phone: [facility] 04-14-2024 12:50-0400 SaO2% (BldA) [Mass fraction] 98 % Krislyn Aberegg PA Work Phone: [facility] 04-14-2024 12:50-0400 Systolic blood pressure 134 mm[Hg] Krislyn Aberegg PA Work Phone: [facility] 02-06-2024 07:31-0400 Body temperature 97.9 [degF] Emely Athy PA-C Work Phone: [facility] 02-06-2024 07:31-0400 Body weight 58.8 kg Emely Athy PA-C Work Phone: [facility] 02-06-2024 07:31-0400 Diastolic blood pressure 84 mm[Hg] Emely Athy PA-C Work Phone: [facility] 02-06-2024 07:31-0400 Heart rate 95 /min Emely Athy PA-C Work Phone: [facility] 02-06-2024 07:31-0400 Respiratory rate 21 /min Emely Athy PA-C Work Phone: [facility] 02-06-2024 07:31-0400 SaO2% (BldA) [Mass fraction] 98 % Emely Athy PA-C Work Phone: [facility] 02-06-2024 07:31-0400 Systolic blood pressure 132 mm[Hg] Emely Scott PA-C Work Phone: [facility] 01-31-2024 12:38-0400 Body temperature 98.8 [degF] Krislyn Aberegg PA Work Phone: [facility] 01-31-2024 12:38-0400 Body weight 58.8 kg Krislyn Aberegg PA Work Phone: [facility] 01-31-2024 12:38-0400 Diastolic blood pressure 89 mm[Hg] Krislyn Aberegg PA Work Phone: [facility] 01-31-2024 12:38-0400 Heart rate 96 /min Krislyn Aberegg PA Work Phone: [facility] 01-31-2024 12:38-0400 Respiratory rate 18 /min Krislyn Aberegg PA Work Phone: [facility] 01-31-2024 12:38-0400 SaO2% (BldA) [Mass fraction] 99 % Krislyn Aberegg PA Work Phone: [facility] 01-31-2024 12:38-0400 Systolic blood pressure 135 mm[Hg] Krislyn Aberegg PA Work Phone: [facility] 09-16-2023 19:44-0400 Body temperature 97.7 [degF] Jamar Morrison APRN.CDC ASSOCIATE Work Phone: [facility] 09-16-2023 19:44-0400 Body weight 59.42 kg Jamar Morrison APRN.CDC ASSOCIATE Work Phone: [facility] 09-16-2023 19:44-0400 Diastolic blood pressure 84 mm[Hg] Jamar Morrison APRN.CDC ASSOCIATE Work Phone: [facility] 09-16-2023 19:44-0400 Heart rate 121 /min Jamar Morrison APRN.CDC ASSOCIATE Work Phone: [facility] 09-16-2023 19:44-0400 Respiratory rate 18 /min Jamar Morrison SEED CORE OPERATOR.CDC ASSOCIATE Work Phone: [facility] 09-16-2023 19:44-0400 SaO2% (BldA) [Mass fraction] 99 % Jamar Morrison SEED CORE OPERATOR.CDC ASSOCIATE Work Phone: [facility] 09-16-2023 19:44-0400 Systolic blood pressure 156 mm[Hg] Jamar Morrison SEED CORE OPERATOR.CDC ASSOCIATE Work Phone: [facility] 09-03-2023 12:26-0400 Body temperature 97.2 [degF] Krys Praisler-Wood SEED CORE OPERATOR.CDC ASSOCIATE Work Phone: [facility] 09-03-2023 12:26-0400 Body weight 59.06 kg Krys Praisler-Wood SEED CORE OPERATOR.CDC ASSOCIATE Work Phone: [facility] 09-03-2023 12:26-0400 Diastolic blood pressure 84 mm[Hg] Krys Praisler-Wood SEED CORE OPERATOR.CDC ASSOCIATE Work Phone: [facility] 09-03-2023 12:26-0400 Heart rate 88 /min Krys Praisler-Wood SEED CORE OPERATOR.CDC ASSOCIATE Work Phone: [facility] 09-03-2023 12:26-0400 Respiratory rate 18 /min Krys Praisler-Wood SEED CORE OPERATOR.CDC ASSOCIATE Work Phone: [facility] 09-03-2023 12:26-0400 SaO2% (BldA) [Mass fraction] 100 % Krys Praisler-Wood SEED CORE OPERATOR.CDC ASSOCIATE Work Phone: [facility] 09-03-2023 12:26-0400 Systolic blood pressure 132 mm[Hg] Krys Praisler-Wood SEED CORE OPERATOR.CDC ASSOCIATE Work Phone: [facility] 07-31-2023 12:33-0400 Diastolic blood pressure 74 mm[Hg] [facility] 07-31-2023 12:33-0400 Heart rate 81 /min [facility] 07-31-2023 12:33-0400 Respiratory rate 16 /min [facility] 07-31-2023 12:33-0400 SaO2% (BldA) [Mass fraction] 97 % [facility] 07-31-2023 12:33-0400 Systolic blood pressure 129 mm[Hg] [facility] 07-31-2023 09:48-0400 Body height 167.64 cm [facility] 07-31-2023 09:48-0400 Body mass index (BMI) [Ratio] 20.5 kg/m2 [facility] 07-31-2023 09:48-0400 Body temperature 97.5 [degF] [facility] 07-31-2023 09:48-0400 Body weight 57.6 kg [facility] 05-11-2023 12:08-0400 Body temperature 97.5 [degF] Yanet Laddhof SEED CORE OPERATOR.CDC ASSOCIATE Work Phone: [facility] 05-11-2023 12:08-0400 Body weight 59.42 kg Yanet Laddhof SEED CORE OPERATOR.CDC ASSOCIATE Work Phone: [facility] 05-11-2023 12:08-0400 Diastolic blood pressure 80 mm[Hg] Yanet Laddhof SEED CORE OPERATOR.CDC ASSOCIATE Work Phone: [facility] 05-11-2023 12:08-0400 Heart rate 81 /min Yanet Laddhof SEED CORE OPERATOR.CDC ASSOCIATE Work Phone: [facility] 05-11-2023 12:08-0400 Respiratory rate 16 /min Yanet Laddhof SEED CORE OPERATOR.CDC ASSOCIATE Work Phone: [facility] 05-11-2023 12:08-0400 SaO2% (BldA) [Mass fraction] 98 % Yanetciro Laddhof SEED CORE OPERATOR.CDC ASSOCIATE Work Phone: [facility] 05-11-2023 12:08-0400 Systolic blood pressure 112 mm[Hg] Yanet Laddhof SEED CORE OPERATOR.CDC ASSOCIATE Work Phone: [facility] 01-27-2023 09:16-0400 Body temperature 97.5 [degF] Dana GALVIN Work Phone: [facility] 01-27-2023 09:16-0400 Body weight 60.78 kg Krislyn Aberegg PA Work Phone: [facility] 01-27-2023 09:16-0400 Diastolic blood pressure 78 mm[Hg] Krislyn Aberegg PA Work Phone: [facility] 01-27-2023 09:16-0400 Heart rate 71 /min Krislyn Aberegg PA Work Phone: [facility] 01-27-2023 09:16-0400 Respiratory rate 18 /min Krislyn Aberegg PA Work Phone: [facility] 01-27-2023 09:16-0400 SaO2% (BldA) [Mass fraction] 99 % Krislyn Aberegg PA Work Phone: [facility] 01-27-2023 09:16-0400 Systolic blood pressure 120 mm[Hg] Krislyn Aberegg PA Work Phone: [facility] 01-10-2023 22:56-0500 Body height 167.64 cm [facility] 01-10-2023 22:56-0500 Body mass index (BMI) [Ratio] 21.7 kg/m2 [facility] 01-10-2023 22:56-0500 Body temperature 97.4 [degF] [facility] 01-10-2023 22:56-0500 Body weight 61.23 kg [facility] 01-10-2023 22:56-0500 Diastolic blood pressure 90 mm[Hg] [facility] 01-10-2023 22:56-0500 Heart rate 110 /min [facility] 01-10-2023 22:56-0500 Respiratory rate 18 /min [facility] 01-10-2023 22:56-0500 SaO2% (BldA) [Mass fraction] 100 % [facility] 01-10-2023 22:56-0500 Systolic blood pressure 143 mm[Hg] [facility] 01-09-2023 14:22-0500 Body temperature 99.1 [degF] Michaela Rouse APRN.CDC ASSOCIATE Work Phone: [facility] 01-09-2023 14:22-0500 Body weight 60.6 kg Michaela Rouse SEED CORE OPERATOR.CDC ASSOCIATE Work Phone: [facility] 01-09-2023 14:22-0500 Diastolic blood pressure 78 mm[Hg] Michaela Rouse SEED CORE OPERATOR.CDC ASSOCIATE Work Phone: [facility] 01-09-2023 14:22-0500 Heart rate 74 /min Michaela Rouse SEED CORE OPERATOR.CDC ASSOCIATE Work Phone: [facility] 01-09-2023 14:22-0500 Respiratory rate 18 /min Michaela Rouse SEED CORE OPERATOR.CDC ASSOCIATE Work Phone: [facility] 01-09-2023 14:22-0500 SaO2% (BldA) [Mass fraction] 96 % Michaela Rouse SEED CORE OPERATOR.CDC ASSOCIATE Work Phone: [facility] 01-09-2023 14:22-0500 Systolic blood pressure 132 mm[Hg] Michaela Rouse SEED CORE OPERATOR.CDC ASSOCIATE Work Phone: [facility] 05-12-2022 22:56-0400 Diastolic blood pressure 74 mm[Hg] [facility] Work Phone: 05-12-2022 22:56-0400 Heart rate 74 /min [facility] Work Phone: 05-12-2022 22:56-0400 Respiratory rate 18 /min [facility] Work Phone: 05-12-2022 22:56-0400 SaO2% (BldA) [Mass fraction] 98 % [facility] Work Phone: 05-12-2022 22:56-0400 Systolic blood pressure 132 mm[Hg] [facility] Work Phone: 05-12-2022 21:24-0400 Body height 167.64 cm [facility] Work Phone: 05-12-2022 21:24-0400 Body mass index (BMI) [Ratio] 20.9 kg/m2 [facility] Work Phone: 05-12-2022 21:24-0400 Body temperature 97.8 [degF] [facility] Work Phone: 05-12-2022 21:24-0400 Body weight 58.96 kg [facility] Work Phone: 04-30-2022 19:06-0400 Body temperature 98.2 [degF] Krys Praisler-Wood SEED CORE OPERATOR.CDC ASSOCIATE Work Phone: [facility] 04-30-2022 19:06-0400 Body weight 59.97 kg Krys Praisler-Wood SEED CORE OPERATOR.CDC ASSOCIATE Work Phone: [facility] 04-30-2022 19:06-0400 Diastolic blood pressure 66 mm[Hg] Krys Praisler-Wood SEED CORE OPERATOR.CDC ASSOCIATE Work Phone: [facility] 04-30-2022 19:06-0400 Heart rate 102 /min Krys Praisler-Wood SEED CORE OPERATOR.CDC ASSOCIATE Work Phone: [facility] 04-30-2022 19:06-0400 Respiratory rate 16 /min Krys Praisler-Wood SEED CORE OPERATOR.CDC ASSOCIATE Work Phone: [facility] 04-30-2022 19:06-0400 SaO2% (BldA) [Mass fraction] 99 % Krys Praisler-Wood SEED CORE OPERATOR.CDC ASSOCIATE Work Phone: [facility] 04-30-2022 19:06-0400 Systolic blood pressure 106 mm[Hg] Krys Praisler-Wood SEED CORE OPERATOR.CDC ASSOCIATE Work Phone: [facility] 03-28-2022 19:59-0400 Body temperature 97 [degF] Jamar Morrison SEED CORE OPERATOR.CDC ASSOCIATE Work Phone: [facility] 03-28-2022 19:59-0400 Body weight 59.6 kg Jamar Morrison SEED CORE OPERATOR.CDC ASSOCIATE Work Phone: [facility] 03-28-2022 19:59-0400 Diastolic blood pressure 74 mm[Hg] Jamar Morrison APRN.CDC ASSOCIATE Work Phone: [facility] 03-28-2022 19:59-0400 Heart rate 72 /min Jamar Morrison APRN.CDC ASSOCIATE Work Phone: [facility] 03-28-2022 19:59-0400 Respiratory rate 18 /min Jamar Morrison APRN.CDC ASSOCIATE Work Phone: [facility] 03-28-2022 19:59-0400 SaO2% (BldA) [Mass fraction] 96 % Jamar Morrison APRN.CDC ASSOCIATE Work Phone: [facility] 03-28-2022 19:59-0400 Systolic blood pressure 122 mm[Hg] Jamar Morrison APRN.CDC ASSOCIATE Work Phone: [facility] 10-27-2021 09:21-0500 Body height 167.64 cm [facility] Work Phone: Encounters Encounter Date Encounter Type Care Provider Facility Start: 09-30-2025 ambulatory [facility] Facility:[facility] Start: 09-10-2025 Encounter for genera l adult medical examination without abnormal findings [facility] Start: 08-12-2025 End: 08-12-2025 ambulatory CHALON KANE Facility:[facility] Start: 08-10-2025 End: 08-10-2025 ambulatory Caitlin Eduardo Facility:[facility] Start: 02-25-2025 End: 02-25-2025 ambulatory CAITLIN EDUARDO Facility:[facility] Start: 02-25-2025 End: 02-25-2025 Patient encounter procedure Navdeep Todd APRN.CDC ASSOCIATE Work Phone: [facility] Comment on above: Acute pain of left k nee (Primary Dx) Start: 12-18-2024 End: 12-18-2024 Telephone encounter Jamar Morrison APRN.CNP Work Phone: [facility] Comment on above: Results Start: 12-16-2024 End: 12-16-2024 ambulatory CAILTIN EDUARDO Facility:[facility] Start: 12-16-2024 End: 12-16-2024 Office outpatient visit 25 minutes Bhupinder Malin PA-C Work Phone: [facility] Comment on above: Urinary frequency (P rimary Dx) Start: 06-10-2024 End: 06-10-2024 Emergency department patient visit ZOHAIB RUST MD [facility] Start: 04-14-2024 End: 04-14-2024 Patient encounter procedure Dana GALVIN Work Phone: [facility] Comment on above: Acute cough (Primary Dx); Sore throat Start: 04-14-2024 End: 04-14-2024 Subsequent hospital visit by physician Xr [facility] Work Phone: Radiology Comment on above: Acute cough [R05.1] Start: 02-06-2024 End: 02-06-2024 Patient encounter procedure Emely Scott PA-C Work Phone: [facility] Comment on above: Acute non-recurrent frontal sinusitis (Primary Dx) Start: 01-31-2024 End: 01-31-2024 Patient encounter procedure Dana GALVIN Work Phone: [facility] Comment on above: Sore throat (Primary Dx) Start: 09-16-2023 End: 09-16-2023 Patient encounter procedure Jamar Morrison APRN.CDC ASSOCIATE Work Phone: [facility] Comment on above: Stiff neck (Primary Dx) Start: 09-03-2023 End: 09-03-2023 Patient encounter procedure Krys Eng APRN.CDC ASSOCIATE Work Phone: [facility] Comment on above: Upper respiratory vi keon (Primary Dx) Start: 07-31-2023 End: 07-31-2023 Emergency department patient visit [facility] Work Phone: Start: 05-13-2023 Telephone encounter Michaela syed SEED CORE OPERATOR.CDC ASSOCIATE Work Phone: [facility] Comment on above: Results Start: 05-11-2023 End: 05-11-2023 Patient encounter procedure Yanet Farrar SEED CORE OPERATOR.CDC ASSOCIATE Work Phone: [facility] Comment on above: Acute cystitis with hematuria (Primary Dx); Urinary frequency; Vaginal yeast infection Start: 05-03-2023 End: 05-03-2023 ambulatory [facility] Work Phone: Start: 05-03-2023 End: 05-03-2023 Patient encounter procedure [facility] Start: 01-28-2023 Telephone encounter Edwin Jay MD Work Phone: [facility] Comment on above: Results Start: 01-28-2023 End: 01-28-2023 Subsequent hospital visit by physician [facility] Work Phone: Radiology Comment on above: Acute cough [R05.1] Start: 01-27-2023 End: 01-27-2023 Patient encounter procedure Dana Putnam PA Work Phone: [facility] Comment on above: Acute cough (Primary Dx); Bronchitis; Chest wall pain Start: 01-10-2023 End: 01-11-2023 [facility] Start: 01-09-2023 End: 01-09-2023 Patient encounter procedure Michaela Rouse SEED CORE OPERATOR.CDC ASSOCIATE Work Phone: [facility] Comment on above: Pharyngitis, unspeci fied etiology (Primary Dx); URI, acute Start: 05-12-2022 End: 05-12-2022 [facility] Start: 04-30-2022 End: 04-30-2022 Patient encounter procedure Krys Eng SEED CORE OPERATOR.CDC ASSOCIATE Work Phone: [facility] Comment on above: Abnormal sensation i n left ear (Primary Dx) Start: 03-28-2022 End: 03-28-2022 Patient encounter procedure Jamar Morrison SEED CORE OPERATOR.CDC ASSOCIATE Work Phone: [facility] Comment on above: Dog bite, initial en counter (Primary Dx) Start: 02-16-2022 End: 02-16-2022 Patient encounter procedure [facility]Labor[facility], Specimen Start: 11-03-2021 Patient encounter procedure [facility] Start: 05-19-2017 End: 05-19-2017 Emergency department patient visit JORDAN Jimenez [facility] Facility:[facility] Procedures Date Procedure Procedure Detail Performing Clinician Start: 12-16-2024 Urnls dip stick/tabl et rgnt auto w/o microscopy Jamar Morrison APRN.CDC ASSOCIATE Work Phone: Start: 04-14-2024 Radiologic exam ches t 2 views Krstephanie Putnam PA Work Phone: Start: 04-14-2024 STREP A MOLECULAR (POC) Krislyn P Aberegg PA Work Phone: Start: 01-31-2024 STREP A MOLECULAR (POC) Krislyn P Aberegg PA Work Phone: Start: 07-31-2023 Plain chest X-ray Start: 05-11-2023 Urnls dip stick/tabl et rgnt auto w/o microscopy Emely Scott PA-C Work Phone: Start: 05-03-2023 Screening mammography Start: 01-28-2023 Radiologic exam ches t 2 views Krismiriamn P Aberegg PA Work Phone: Start: 05-12-2022 Plain chest X-ray Start: 11-03-2021 Ultrasonography of breast Start: 11-03-2021 Bilateral mammography Start: 01-09-2021 Colonoscopy normal (finding) ZOHAIB RUST MD None (qualifier value) ZOHAIB RUST MD Plan of Treatment Date Care Activity Detail Author Start: 03-28-[address] [facility] Start: 03-05-2025 End: 03-05-2025 Patient encounter procedure 03/05/2025 9:15 AM EDT Office Visit OB/Gynecology [address] [place] [address] Earlene Plaza APRN.CDC ASSOCIATE [address] [place] [address] new annual OB/Gynecology Comment on above: new annual Start: 07-19-2024 Covid-19 Vaccine () Covid-19 Vaccine () [facility] Start: 07-19-2024 Covid-19 Vaccine () Covid-19 Vaccine () [facility] Start: 07-19-2024 Influenza vaccination [facility] Start: 11-18-2023 Behavioral Health Screening Behavioral Health Screening [facility] Start: 11-18-2023 Depression Assessment Depression Ass essment [facility] Start: 07-31-2023 [facility] Start: 07-19-2023 Covid-19 Vaccine () Covid-19 Vaccine () [facility] Start: 07-19-2023 Influenza vaccination C [facility] Start: 05-11-2023 End: 07-11-2023 Bacteria identified in Urine by Culture URINE CULTURE Microbiology Routine Urinary frequency Expected: 05/11/2023, Expires: 07/11/2023 [facility] Work Phone: Comment on above: Expected: 05/11/2023 , Expires: 07/11/2023 Start: 11-18-2022 DEPRESSION ASSESSMENT DEPRESSION ASS ESSMENT [facility] Start: 07-19-2022 Influenza vaccination C [facility] Start: 01-27-2022 COVID-19 VACCINE (3 - Booster for Moderna series) COVID-19 VACCINE (3 - Booster for Moderna series) [facility] Start: 10-24-2021 COVID-19 VACCINE (3 - Booster for Moderna series) COVID-19 VACCINE (3 - Booster for Moderna series) [facility] Start: 01-27-2020 Pneumococcal Vaccine : 50+ (1 of 1 - PCV) Pneumococcal Vaccine: 50+ (1 of 1 - PCV) [facility] Start: 01-27-2020 SHINGRIX VACCINE (1 of 2) SHINGRIX VACCINE (1 of 2) [facility] Start: 2015 COLOGUARD (FIT-DNA) COLOGUARD (FIT-D NA) [facility] Start: [address] [facility] Start: 2015 COLORECTAL CANCER SCREENING COLORECTAL CANCER SCREENING [facility] Start: [address] COLONOGRAPHY [facility] Start: 2015 DIABETES SCREEN DIABETES SCREEN [facility] Start: 2015 Diabetes Screening Diabetes Screenin g [facility] Start: 2015 FECAL OCCULT BLOOD FECAL OCCULT BLOO D [facility] Start: 2015 Lipid 1996 panel - S linda or Plasma Lipid Screening [facility] Start: 2015 Lipid panel Lipid Screening [facility] Start: 2015 LIPID SCREEN LIPID SCREEN [facility] Start: 2015 Screening for malign ant neoplasm of colon [facility] Start: 2015 SIGMOIDOSCOPY SIGMOIDOSCOPY [facility] Start: 05-19-2013 HPV TESTING HPV TESTING [facility] Start: 05-19-2013 PAP TEST[address] PAP TESTING [facility] Start: 05-19-2013 Screening for malign ant neoplasm of cervix [facility] Start: [address] [facility] Start: 2010 Screening for malign ant neoplasm of breast Mammogram Screening [facility] Start: 1989 Hepatitis B Vaccine (1 of 3 - 19+ 3-dose series) Hepatitis B Vaccine (1 of 3 - 19+ 3-dose series) [facility] Start: 1989 Urine microalbumin profile DTAP,TDAP,TD (1 - Tdap) [facility] Start: 01-27-1988 Anxiety Screening Anxiety Screening [facility] Start: 01-27-1988 Depression Screening Depression Scre ening [facility] Start: 01-27-1988 HEPATITIS C SCREENING HEPATITIS C [facility] Start: 01-27-1988 Hepatitis C screening Hepatitis C [facility] Start: 01-27-1988 HIV SCREENING HIV SCREENING [facility] Start: 01-27-1988 HIV screening HIV Screening [facility] Start: 1982 Adult depression screening assessment DEPRESSION SCREENING [facility] Start: 1970 HEPATITIS B (1 of 3 - 3-dose series) HEPATITIS B (1 of 3 - 3-dose series) [facility] Start: 1970 Hepatitis B Vaccine (1 of 3 - 3-dose series) Hepatitis B Vaccine (1 of 3 - 3-dose series) [facility] Bacteria identified in Urine by Culture BACTERIAL CULTURE, URINE Microbiology Routine Urinary frequency Ordered: 12/16/2024 [facility] Work Phone: Comment on above: Ordered: 12/16/2024 Patient Education [facility] Work Phone: Patient referral [facility] Work Phone: End: 02-26-2024 Radiologic exam chest 2 views XR CHEST 2V FRONTAL/LAT Radiology STAT Acute cough Bronchitis 1 Occurrences starting 01/27/2023 until 02/26/2024 [facility] Work Phone: Comment on above: 1 Occurrences starti ng 01/27/2023 until 02/26/2024 STREP A MOLECULAR (POC) STREP A MOLECULAR (POC) Microbiology Routine Pharyngitis, unspecified etiology Ordered: 01/09/2023 [facility] Work Phone: Comment on above: Ordered: 01/09/2023 Immunizations Immunization Date Immunization Notes Care Provider Kristofer lopez 03-28-2022 tetanus toxoid, redu jane diphtheria toxoid, and acellular pertussis vaccine, adsorbed Jamar Morrison APRN.CNP Work Phone: [facility] Payers Date Payer Category Payer Self-pay [id number] 2024 Private Health Insurance [id number] 2023 Private Health Insurance [id number] 2011 Private Health Insurance [id number] 2011 Private Health Insurance [employer]ET[employer] A ETNA CHOICE POS II [id number] 2011-Present [phone] [address] [place] [address] POS [id number] 2011 Private Health Insurance [id number] 1970 Unknown [id number] Unknown [id number] Unknown [id number] Social History Date Type Detail Facility Start: 07-18-2014 End: 07-31-2023 Tobacco smoking status [facility] Unknown if ever smoked [facility] Start: 1970 Sex Assigned At Female [facility] Start: 10-11-2014 End: 12-16-2024 Tobacco smoking status NHIS Ex-smoker [facility] End: 07-02-2014 History of tobacco use Current smoker [facility] Start: 10-11-2014 End: 12-16-2024 Tobacco use and exposure Smokeless tobacco non-user [facility] Start: 03-28-2022 End: 02-25-2025 Alcohol intake Current drinker of alcohol (finding) [facility] Start: 1970 Sex Assigned At Not on file [facility] Start: 03-18-2022 End: 03-28-2022 Exposure to SARS-CoV-2 (event) Not sure [facility] End: 07-02-2014 History of tobacco use Cigarette Smoker [facility] Start: 01-09-2023 Tobacco Comment socially [facility] Start: 10-25-2020 End: 09-03-2023 History of [address] [facility] Start: 10-25-2020 End: 09-03-[address] [facility] National Score (1-100), lower number is lower risk Not on file [facility] Sex Assigned At Sex [facility] NEGATED: Highlighted row [facility] Functional Status Date Assessment Result Facility 06-10-2024 Functional Status Standard Safet y ID band on, Call device within reach, Bed in low position, Wheels locked, Upper/Half-Length side-rails up [facility] 10-11-2014 Are you deaf, or do you have serious difficulty hearing No 10/11/2014 9:11 AM Zuleyma Castro LPN No [facility] 10-11-2014 Are you blind, or do you have serious difficulty seeing, even when wearing glasses No 10/11/2014 9:11 AM Zuleyma Castro LPN [facility] 10-11-2014 Do you have serious difficulty walking or climbing stairs No 10/11/2014 9:11 AM Zuleyma Castro LPN [facility] 10-11-2014 Do you have difficul ty dressing or bathing No 10/11/2014 9:11 AM Zuleyma Castro LPN [facility] 10-11-2014 Because of a physica l, mental, or emotional condition, do you have difficulty doing errands alone such as visiting a physician's office or shopping No 10/11/2014 9:11 AM Zuleyma Castro LPN [facility] Mental Status Date Assessment Result Facility 06-10-2024 Mental Status Orientation Oriented x 4 [facility] 01-11-2023 Cognitive function Level Of Cons ciousness Awake;Alert;Appropriate;Fol lows Commands [facility] Work Phone: 05-12-2022 Cognitive function Level Of Cons ciousness Awake;Alert;Appropriate [facility] Work Phone: 10-11-2014 Because of a physica l, mental, or emotional condition, do you have serious difficulty concentrating, remembering, or making decisions No 10/11/2014 9:11 AM Zuleyma Castro LPN [facility] Clinical Notes 02-16-2022 to 08-12-2025 Navdeep Todd APRN.CDC ASSOCIATE - 02/25/2025 7:14 PM EDTTelephone Encounter - Maureen Prado OCCA - 12/18/2024 2:33 PM ESTTelephone Encounter - Maureen Prado OCCA - 12/18/2024 2:33 PM EST Note Date & Type Note Facility 08-12-2025 Note HNO ID: [id number] Author: NAVDEEP TODD APRN.PORTER Service: ? Author Type: Nurse Practitioner Type: Progress Notes Filed: 08/12/2025 17:13 Note Text: [facility] Subjective HPI HPI Mirna Todd is a 55 year old female who presents today for CC of coughing up blood today, feeling dizzy. This started today. Has tried nothing for relief. Symptoms are worsened by nothing. Denies cp/sob. Denies uri s/s. 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 MEDICATIONS DULoxetine (CYMBALTA) 60 mg capsule Take 1 capsule by mouth every afternoon. Zutwccstzztdzvc-Orrrzvofl-UK (BROMFED DM) 2-30-10 mg/5 mL syrup Take 10 mL by mouth four times a day as needed. (Patient not taking: Reported on 12/16/2024) mv-min/iron/folic/calcium/vitK (WOMEN'S MULTIVITAMIN ORAL) Take by mouth. (Patient not taking: Reported on 12/16/2024) vibegron (GEMTESA) 75 mg tablet Take 75 mg by mouth once daily. (Patient not taking: Reported on 12/16/2024) benzonatate (TESSALON PERLES) 100 mg capsule Take 1 capsule by mouth three times daily as needed for cough. (Patient not taking: Reported on 04/27/2023) oxybutynin XL (DITROPAN XL) 5 mg 24 hr tablet (Patient not taking: Reported on 04/27/2023) PROGESTERONE MICRONIZED ORAL Take by mouth. (Patient not taking: Reported on 04/27/2023) PARoxetine (PAXIL) 20 mg tablet Take 10 mg by mouth once daily. (Patient not taking: Reported on 05/11/2023) FAMILY HISTORY Problem Relation Age of Onset Prostate Cancer Father Diabetes Paternal Grandmother Heart Paternal Grandmother SOCIAL HISTORY[1] Review of Systems Constitutional: Negative for chills, fatigue and fever. HENT: Negative for ear discharge, ear pain, rhinorrhea, sinus pressure, sinus pain and sore throat. Eyes: Negative for discharge and redness. Respiratory: Negative for cough, shortness of breath and wheezing. Cardiovascular: Negative for chest pain. Skin: Negative for rash. Neurological: Positive for dizziness. Objective BP 161/94 Pulse (!) 130 Temp 36.9 ?C (98.5 ?F) Resp 18 Wt 59.2 kg (130 lb 8.2 oz) LMP (LMP Unknown) SpO2 100% Physical Exam Constitutional: General: She is not in acute distress. Appearance: She is not toxic-appearing or diaphoretic. HENT: Head: Normocephalic and atraumatic. Right Ear: Hearing, tympanic membrane, ear canal and external ear normal. Left Ear: Hearing, tympanic membrane, ear canal and external ear normal. Nose: Nose normal. Mouth/Throat: Pharynx: Uvula midline. Eyes: General: Lids are normal. No scleral icterus. Right eye: No discharge. Left eye: No discharge. Conjunctiva/sclera: Conjunctivae normal. Pupils: Pupils are equal, round, and reactive to light. Neck: Trachea: Trachea normal. Cardiovascular: Rate and Rhythm: Normal rate and regular rhythm. Heart sounds: Normal heart sounds. Pulmonary: Effort: Pulmonary effort is normal. Breath sounds: Normal breath sounds. Musculoskeletal: Cervical back: Normal range of motion and neck supple. Lymphadenopathy: Cervical: No cervical adenopathy. Skin: Findings: No rash. Neurological: Mental Status: She is alert and oriented to person, place, and time. {ASSESSMENT/PLAN: 1. Bloody sputum - ICD9: 786.30, ICD10: R04.2 Discussed options with patient Patient prefers to go to ER for evaluation Declines squad Will drive pov to ER, unclear what ER will go to at this time. Navdeep Todd APRN.PORTER History and Record Review External record(s) reviewed: prior outpatient record. Disposition The patient was other (comment) (referred to ER). Procedures [1] Social History Tobacco Use Smoking status: Former Current packs/day: 0.00 Types: Cigarettes Quit date: 07/02/2014 Years since quittin.1 Smokeless tobacco: Never Tobacco comments: socially Substance Use Topics Alcohol use: Yes Comment: OCCASIONALLY Drug use: No [facility] 02-25-2025 Note HNO ID: [id number] Author: NAVDEEP TODD APRN.CNP Service: ? Author Type: Nurse Practitioner Type: Progress Notes Filed: 02/25/2025 19:19 Note Text: [facility] Subjective HPI HPI Mirna Todd is a 55 year old female who presents today for CC of posterior swelling/pain of left knee. This started 1 day ago. Has tried nothing for relief. Symptoms are worsened by touching the area. Risk factors recently changed how she sits at work and this rubs on back of knee. Nonsmoker. Denies hx of blood clots. 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 MEDICATIONS DULoxetine (CYMBALTA) 60 mg capsule Take 1 capsule by mouth every afternoon. Iawgwqmhumcnblh-Kyfhcogld-XH (BROMFED DM) 2-30-10 mg/5 mL syrup Take 10 mL by mouth four times a day as needed. (Patient not taking: Reported on 12/16/2024) mv-min/iron/folic/calcium/vitK (WOMEN'S MULTIVITAMIN ORAL) Take by mouth. (Patient not taking: Reported on 12/16/2024) vibegron (GEMTESA) 75 mg tablet Take 75 mg by mouth once daily. (Patient not taking: Reported on 12/16/2024) benzonatate (TESSALON PERLES) 100 mg capsule Take 1 capsule by mouth three times daily as needed for cough. (Patient not taking: Reported on 04/27/2023) oxybutynin XL (DITROPAN XL) 5 mg 24 hr tablet (Patient not taking: Reported on 04/27/2023) PROGESTERONE MICRONIZED ORAL Take by mouth. (Patient not taking: Reported on 04/27/2023) PARoxetine (PAXIL) 20 mg tablet Take 10 mg by mouth once daily. (Patient not taking: Reported on 05/11/2023) FAMILY HISTORY Problem Relation Age of Onset Prostate Cancer Father Diabetes Paternal Grandmother Heart Paternal Grandmother Social History Tobacco Use Smoking status: Former Current packs/day: 0.00 Types: Cigarettes Quit date: 07/02/2014 Years since quittin.6 Smokeless tobacco: Never Tobacco comments: socially Substance Use Topics Alcohol use: Yes Comment: OCCASIONALLY Drug use: No Review of Systems Objective BP 136/99 Pulse (!) 138 Temp 36.1 ?C (97 ?F) Resp 20 Wt 57 kg (125 lb 10.6 oz) LMP (LMP Unknown) SpO2 99% Physical Exam Constitutional: General: She is not in acute distress. Appearance: She is not toxic-appearing or diaphoretic. HENT: Head: Normocephalic and atraumatic. Pulmonary: Effort: Pulmonary effort is normal. No accessory muscle usage or respiratory distress. Musculoskeletal: Legs: Neurological: Mental Status: She is alert and oriented to person, place, and time. {ASSESSMENT/PLAN: 1. Acute pain of left knee - ICD9: 719.46, ICD10: M25.562 I discussed limitations of express care in the PM/limited imaging. Patient declines concerns for dvt, very low suspicioun/unable to obtain ultrasound at time of exam, does not want to order future ultrasound Possibly irritated bakers cyst. Reports will try nsaids, ice, compression and f/u with pcp in few days. Urgent f/u advised if s/s worsen. Navdeep Todd APRN.CDC ASSOCIATE History and Record Review External record(s) reviewed: prior outpatient record. Disposition The patient was discharged. OTC Medications were advised: Procedures [facility] 02-25-2025 History of Presen t illness Narrative Images from the original note were not included. [facility] Subjective HPI HPI Mirna Todd is a 55 year old female who presents today for CC of posterior swelling/pain of left knee. This started 1 day ago. Has tried nothing for relief. Symptoms are worsened by touching the area. Risk factors recently changed how she sits at work and this rubs on back of knee. Nonsmoker. Denies hx of blood clots. 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 MEDICATIONS DULoxetine (CYMBALTA) 60 mg capsule Take 1 capsule by mouth every afternoon. Uwdtjfctbnagaic-Plteyadgz-NR (BROMFED DM) 2-30-10 mg/5 mL syrup Take 10 mL by mouth four times a day as needed. (Patient not taking: Reported on 12/16/2024) mv-min/iron/folic/calcium/vitK (WOMEN'S MULTIVITAMIN ORAL) Take by mouth. (Patient not taking: Reported on 12/16/2024) vibegron (GEMTESA) 75 mg tablet Take 75 mg by mouth once daily. (Patient not taking: Reported on 12/16/2024) benzonatate (TESSALON PERLES) 100 mg capsule Take 1 capsule by mouth three times daily as needed for cough. (Patient not taking: Reported on 04/27/2023) oxybutynin XL (DITROPAN XL) 5 mg 24 hr tablet (Patient not taking: Reported on 04/27/2023) PROGESTERONE MICRONIZED ORAL Take by mouth. (Patient not taking: Reported on 04/27/2023) PARoxetine (PAXIL) 20 mg tablet Take 10 mg by mouth once daily. (Patient not taking: Reported on 05/11/2023) FAMILY HISTORY Problem Relation Age of Onset Prostate Cancer Father Diabetes Paternal Grandmother Heart Paternal Grandmother Social History Tobacco Use Smoking status: Former Current packs/day: 0.00 Types: Cigarettes Quit date: 07/02/2014 Years since quittin.6 Smokeless tobacco: Never Tobacco comments: socially Substance Use Topics Alcohol use: Yes Comment: OCCASIONALLY Drug use: No Review of Systems Objective BP 136/99 Pulse (!) 138 Temp 36.1 C (97 F) Resp 20 Wt 57 kg (125 lb 10.6 oz) LMP (LMP Unknown) SpO2 99% Physical Exam Constitutional: General: She is not in acute distress. Appearance: She is not toxic-appearing or diaphoretic. HENT: Head: Normocephalic and atraumatic. Pulmonary: Effort: Pulmonary effort is normal. No accessory muscle usage or respiratory distress. Musculoskeletal: Legs: Neurological: Mental Status: She is alert and oriented to person, place, and time. {ASSESSMENT/PLAN: 1. Acute pain of left knee - ICD9: 719.46, ICD10: M25.562 I discussed limitations of express care in the PM/limited imaging. Patient declines concerns for dvt, very low suspicioun/unable to obtain ultrasound at time of exam, does not want to order future ultrasound Possibly irritated bakers cyst. Reports will try nsaids, ice, compression and f/u with pcp in few days. Urgent f/u advised if s/s worsen. Navdeep Todd APRN.CNP History and Record Review External record(s) reviewed: prior outpatient record. Disposition The patient was discharged. OTC Medications were advised: Procedures documented in this encounter [facility] 12-18-2024 Telephone encounter Note TC to patient who verbalized understanding of providers message below with no questions at this time. ROB Sims [facility] 12-18-2024 Miscellaneous Notes TC to patient who verbalized understanding of providers message below with no questions at this time. ROB Sims No Significant urine growth on urine culture. Please notify patient. She should follow-up with primary care if symptoms persist. documented in this encounter [facility] 12-18-2024 Telephone encounter Note No Significant urine growth on urine culture. Please notify patient. She should follow-up with primary care if symptoms persist. [facility] Work Phone: 12-16-2024 Note HNO ID: [id number] Author: BHUPINDER MALIN PA-C Service: ? Author Type: Physician Brand Activation Manager Type: Progress Notes Filed: 12/16/2024 17:16 Note Text: This note was created using Fan TV[employer]. Subjective Mirna Todd is a 54 year old female. Patient is a 54-year-old female who complains of mild dysuria, urinary urgency and urinary frequency that she has been experiencing for approximately the past 1 week. Patient denies fever, chills, hematuria, flank pain, nausea or other symptoms. Patient states that she does have a history of urinary tract infection and that her current symptoms are consistent with same. Patient also reports that she has experienced episodes of UTI where the initial urinalysis was negative, however subsequent urine cultures did grow Escherichia coli. Patient is followed by a urologist for her urinary urgency and frequency issues. Review of Systems Genitourinary: Positive for dysuria, frequency and urgency. All other systems reviewed and are negative. Objective BP 148/90 Pulse 108 Temp 36.6 ?C (97.9 ?F) Resp 19 Wt 59 kg (130 lb 1.1 oz) LMP 11/05/2016 SpO2 100% Physical Exam Vitals and nursing note reviewed. Constitutional: Appearance: Normal appearance. She is normal weight. HENT: Head: Normocephalic and atraumatic. Right Ear: External ear normal. Left Ear: External ear normal. Nose: Nose normal. Mouth/Throat: Mouth: Mucous membranes are moist. Pharynx: Oropharynx is clear. Eyes: Extraocular Movements: Extraocular movements intact. Conjunctiva/sclera: Conjunctivae normal. Pupils: Pupils are equal, round, and reactive to light. Cardiovascular: Rate and Rhythm: Normal rate. Pulses: Normal pulses. Heart sounds: Normal heart sounds. Pulmonary: Effort: Pulmonary effort is normal. Breath sounds: Normal breath sounds. Abdominal: General: Abdomen is flat. Palpations: Abdomen is soft. Musculoskeletal: Cervical back: Normal range of motion and neck supple. Skin: General: Skin is warm and dry. Capillary Refill: Capillary refill takes less than 2 seconds. Neurological: General: No focal deficit present. Mental Status: She is alert and oriented to person, place, and time. Psychiatric: Mood and Affect: Mood normal. Behavior: Behavior normal. Thought Content: Thought content normal. Judgment: Judgment normal. Assessment and Plan Physical exam findings as noted above. Urinalysis is negative and urine culture was ordered. Given the patient's clinical presentation and history, she was provided with a prescription for Keflex 500 mg. Patient was advised that results of the urine culture be available in 2 days. Patient was informed that if the urine culture shows no growth she will be instructed to discontinue the Keflex as prescribed. Patient verbalizes clear understanding of the above instructions. CLINICAL IMPRESSION: Urinary Urgency and Frequency; History of Recurrent E. Coli UTI ASSESSMENT/PLAN: 1. Urinary frequency - ICD9: 788.41, ICD10: R35.0 - UA DIP, URINE (POC) - BACTERIAL CULTURE, URINE - CEPHALEXIN 500 MG CAPSULE Bhupinder Malin PA-C [facility] 12-16-2024 History of Presen t illness Narrative This note was created using [employer]. Subjective Mirna Todd is a 54 year old female. Patient is a 54-year-old female who complains of mild dysuria, urinary urgency and urinary frequency that she has been experiencing for approximately the past 1 week. Patient denies fever, chills, hematuria, flank pain, nausea or other symptoms. Patient states that she does have a history of urinary tract infection and that her current symptoms are consistent with same. Patient also reports that she has experienced episodes of UTI where the initial urinalysis was negative, however subsequent urine cultures did grow Escherichia coli. Patient is followed by a urologist for her urinary urgency and frequency issues. Review of Systems Genitourinary: Positive for dysuria, frequency and urgency. All other systems reviewed and are negative. Objective BP 148/90 Pulse 108 Temp 36.6 C (97.9 F) Resp 19 Wt 59 kg (130 lb 1.1 oz) LMP 11/05/2016 SpO2 100% Physical Exam Vitals and nursing note reviewed. Constitutional: Appearance: Normal appearance. She is normal weight. HENT: Head: Normocephalic and atraumatic. Right Ear: External ear normal. Left Ear: External ear normal. Nose: Nose normal. Mouth/Throat: Mouth: Mucous membranes are moist. Pharynx: Oropharynx is clear. Eyes: Extraocular Movements: Extraocular movements intact. Conjunctiva/sclera: Conjunctivae normal. Pupils: Pupils are equal, round, and reactive to light. Cardiovascular: Rate and Rhythm: Normal rate. Pulses: Normal pulses. Heart sounds: Normal heart sounds. Pulmonary: Effort: Pulmonary effort is normal. Breath sounds: Normal breath sounds. Abdominal: General: Abdomen is flat. Palpations: Abdomen is soft. Musculoskeletal: Cervical back: Normal range of motion and neck supple. Skin: General: Skin is warm and dry. Capillary Refill: Capillary refill takes less than 2 seconds. Neurological: General: No focal deficit present. Mental Status: She is alert and oriented to person, place, and time. Psychiatric: Mood and Affect: Mood normal. Behavior: Behavior normal. Thought Content: Thought content normal. Judgment: Judgment normal. Assessment and Plan Physical exam findings as noted above. Urinalysis is negative and urine culture was ordered. Given the patient's clinical presentation and history, she was provided with a prescription for Keflex 500 mg. Patient was advised that results of the urine culture be available in 2 days. Patient was informed that if the urine culture shows no growth she will be instructed to discontinue the Keflex as prescribed. Patient verbalizes clear understanding of the above instructions. CLINICAL IMPRESSION: Urinary Urgency and Frequency; History of Recurrent E. Coli UTI ASSESSMENT/PLAN: 1. Urinary frequency - ICD9: 788.41, ICD10: R35.0 - UA DIP, URINE (POC) - BACTERIAL CULTURE, URINE - CEPHALEXIN 500 MG CAPSULE Bhupinder Malin PA-C documented in this encounter [facility] 06-10-2024 Hospital Discharg e instructions Patient Education 06/10/2024 14:18:45 Abdominal Pain Abdominal Pain Abdominal pain is pain in the stomach or belly area. Everyone has this pain from time to time. In many cases it goes away on its own. But abdominal pain can sometimes be due to a serious problem, such as appendicitis. So it s important to know when to get help. Causes of abdominal pain There are many possible causes of abdominal pain. Common causes in adults include: Constipation, diarrhea, or gas Stomach acid flowing back up into the esophagus (acid reflux or heartburn) Severe acid reflux, called GERD (gastroesophageal reflux disease) A sore in the lining of the stomach or small intestine (peptic ulcer) Inflammation of the gallbladder, liver, or pancreas Gallstones or kidney stones Appendicitis Intestinal blockage An internal organ pushing through a muscle or other tissue (hernia) Urinary tract infections In women, menstrual cramps, fibroids, ovarian cysts, pelvic inflammatory disease, or endometriosis Inflammation or infection of the intestines, including Crohn's disease and ulcerative colitis Irritable bowel syndrome Diagnosing the cause of abdominal pain Your healthcare provider will give you a physical exam help find the cause of your pain. If needed, you will have tests. Belly pain has many possible causes. So it can be hard to find the reason for your pain. Giving details about your pain can help. Tell your provider where and when you feel the pain, and what makes it better or worse. Also let your provider know if you have other symptoms such as: Fever Tiredness Upset stomach (nausea) Vomiting Changes in bathroom habits Blood in the stool or black, tarry stool Weight loss that you can't explain (involuntary weight loss?) Also report any family history of stomach or intestinal problems, or cancers. Tell your provider about all your alcohol use and drug use. Tell your provider about all medicines you use, including herbs, vitamins, and supplements. Treating abdominal pain Some causes of pain need emergency medical treatment right away. These include appendicitis or a bowel blockage. Other problems can be treated with rest, fluids, or medicines. Your healthcare provider can give you specific instructions for treatment or self-care based on what is causing your pain. If you have vomiting or diarrhea, sip water or other clear fluids. When you are ready to eat solid foods again, start with small amounts of qglu-fc-lggtfu, low-fat foods. These include apple sauce, toast, or crackers. When to get medical care Call 911 or go to the hospital right away if you: Can t pass stool and are vomiting Are vomiting blood or have bloody diarrhea or black, tarry diarrhea Have chest, neck, or shoulder pain Feel like you might pass out Have pain in your shoulder blades with nausea Have sudden, severe belly pain Have new, severe pain unlike any you have felt before Have a belly that is rigid, hard, and hurts to touch Call your healthcare provider if you have: Pain for more than 5 days Bloating for more than 2 days Diarrhea for more than 5 days A fever of 100.4 F (38 C) or higher, or as directed by your healthcare provider Pain that gets worse Weight loss for no reason Continued lack of appetite Blood in your stool How to prevent abdominal pain Here are some tips to help prevent abdominal pain: Eat smaller amounts of food at each meal. Don't eat greasy, fried, or other high-fat foods. Don't eat foods that give you gas. Exercise regularly. Drink plenty of fluids. To help prevent GERD symptoms: Quit smoking. Reduce alcohol and foods that increase stomach acid. Don't use aspirin or ckns-lgr-dtavkao pain and fever medicines, if possible. This includes nonsteroidal anti-inflammatory drugs (NSAIDs). Lose excess weight. Finish eating at least 2 hours before you go to bed or lie down. Raise the head of your bed. [id number] [employer] [address] [place] [address], [place], [place] [address]. All rights reserved. This information is not intended as a substitute for professional medical care. Always follow your healthcare professional's instructions. Follow Up Care 06/10/2024 12:31:54 With:KINA MANCILLA MD Address: [facility] [address] [place] [phone] When:2-4 days [facility] 06-10-2024 Note Discharge Instructions Thank you for allowing [facility] to assist you with your healthcare needs. The following is important discharge information regarding your hospital visit. Diagnosis from Today's Visit Abdominal pain What to Do Next Instructions from Your Care Team IMPRESSION: 1. Cholelithiasis. No evidence of pericholecystic fluid or gallbladder wall thickening. 2. Right-sided nonobstructing punctate upper pole renal calculus. Mild prominence of right pelvicalyceal system is likely physiological. 3. Irregular appearance of 2nd part of duodenum with eccentric wall thickening which may be related to under distension. Suggested correlation with clinical history and further evaluation with endoscopy if required. No qualifying data available. Post Acute Orders No qualifying data available. You Need to Schedule the Following Appointments Follow Up with KINA MANCILLA MD When:Within 2-4 days Where:[address] [facility] [address] [place] [address] [phone] Allergies NKA Medications Please ask your primary doctor or pharmacist before taking any other medication not listed, including over the counter drugs, herbal medications, vitamins and or supplements as they may interact with your home medications. What How Much When Instructions Last Dose Unchanged copper (copper intrauterine device) Unchanged ZOLMitriptan (Zomig 2.5 mg oral tablet) 0.5 tab(s) by mouth Once as needed for for migraine headache Please take this list to your next doctor s visit. Bring all medications you take, including over the counter medications, herbals and other supplements with you to your doctor s visit. Patients and families are reminded to discard old lists and to update any records with all medication providers or retail pharmacies. Education Materials Abdominal Pain Abdominal pain is pain in the stomach or belly area. Everyone has this pain from time to time. In many cases it goes away on its own. But abdominal pain can sometimes be due to a serious problem, such as appendicitis. So it s important to know when to get help. Causes of abdominal pain There are many possible causes of abdominal pain. Common causes in adults include: Constipation, diarrhea, or gas Stomach acid flowing back up into the esophagus (acid reflux or heartburn) Severe acid reflux, called GERD (gastroesophageal reflux disease) A sore in the lining of the stomach or small intestine (peptic ulcer) Inflammation of the gallbladder, liver, or pancreas Gallstones or kidney stones Appendicitis Intestinal blockage An internal organ pushing through a muscle or other tissue (hernia) Urinary tract infections In women, menstrual cramps, fibroids, ovarian cysts, pelvic inflammatory disease, or endometriosis Inflammation or infection of the intestines, including Crohn's disease and ulcerative colitis Irritable bowel syndrome Diagnosing the cause of abdominal pain Your healthcare provider will give you a physical exam help find the cause of your pain. If needed, you will have tests. Belly pain has many possible causes. So it can be hard to find the reason for your pain. Giving details about your pain can help. Tell your provider where and when you feel the pain, and what makes it better or worse. Also let your provider know if you have other symptoms such as: Fever Tiredness Upset stomach (nausea) Vomiting Changes in bathroom habits Blood in the stool or black, tarry stool Weight loss that you can't explain (involuntary weight loss?) Also report any family history of stomach or intestinal problems, or cancers. Tell your provider about all your alcohol use and drug use. Tell your provider about all medicines you use, including herbs, vitamins, and supplements. Treating abdominal pain Some causes of pain need emergency medical treatment right away. These include appendicitis or a bowel blockage. Other problems can be treated with rest, fluids, or medicines. Your healthcare provider can give you specific instructions for treatment or self-care based on what is causing your pain. If you have vomiting or diarrhea, sip water or other clear fluids. When you are ready to eat solid foods again, start with small amounts of oxiq-kk-urinzd, low-fat foods. These include apple sauce, toast, or crackers. When to get medical care Call 911 or go to the hospital right away if you: Can t pass stool and are vomiting Are vomiting blood or have bloody diarrhea or black, tarry diarrhea Have chest, neck, or shoulder pain Feel like you might pass out Have pain in your shoulder blades with nausea Have sudden, severe belly pain Have new, severe pain unlike any you have felt before Have a belly that is rigid, hard, and hurts to touch Call your healthcare provider if you have: Pain for more than 5 days Bloating for more than 2 days Diarrhea for more than 5 days A fever of 100.4 F (38 C) or higher, or as directed by your healthcare provider Pain that gets worse Weight loss for no reason Continued lack of appetite Blood in your stool How to prevent abdominal pain Here are some tips to help prevent abdominal pain: Eat smaller amounts of food at each meal. Don't eat greasy, fried, or other high-fat foods. Don't eat foods that give you gas. Exercise regularly. Drink plenty of fluids. To help prevent GERD symptoms: Quit smoking. Reduce alcohol and foods that increase stomach acid. Don't use aspirin or qqzu-qyq-dnnxtfy pain and fever medicines, if possible. This includes nonsteroidal anti-inflammatory drugs (NSAIDs). Lose excess weight. Finish eating at least 2 hours before you go to bed or lie down. Raise the head of your bed. [id number] [employer]. [address] [place] [address]. All rights reserved. This information is not intended as a substitute for professional medical care. Always follow your healthcare professional's instructions. Additional Information VACCINATE! IT SAVES LIVES! Members of the community who have not yet received the COVID-19 vaccine and would like to receive it can visit one of [facility] vaccine clinics. There are many vaccine clinic locations within the [facility]. For locations and available times, please visit [email or web address] [email or web address] It is important to note that some COVID mobile vaccine clinics are held outdoors and may be canceled in rainy or stormy conditions. To learn more about pediatric vaccinations (ages 5-11), we invite you to visit the [facility] webpage. https://www.[facility].org/p [email or web address]-Vjrhq-Uqskuruahqs-Freq dylovs-Nhtnh-Gubueetcz.html To learn more about the COVID-19 vaccine, we invite you to visit the CDC website for a list of frequently asked questions. https://www.cdc.gov/coronavirus/ 2019-ncov/vaccines/faq.html [facility] Patient Portal Access Instructions: Stay connected with your healthcare team and access your personal medical information anytime with the [facility] Patient Portal. If you would like a full copy of your medical records please contact the [facility] Medical Records Department Saturday through Saturday between 8a.m. and 4:30p.m. Please follow the directions below to access the portal: 1.Access the email account you provided upon registration to the [facility].2.Look for an invitation email from [facility].3.Open the email and access the invitation link: [facility] to [facility]4.Fill in the required tineo to create your account. Sign into www.[email or web address] with your username and password that you created in the above steps to stay up to date. You can then view a summary of results, a summary of your visits, and the ability to download your summaries to your computer or send the information securely to a physician. Remember that your healthcare information is confidential, so carefully consider who you will allow to register on the [facility] Patient Portal for access to your information. You can also access the [facility] Patient Portal on the [employer]. Simply click on "Health Records" under "Health Data" and then click on the [employer] logo. HOW TO SAFELY DISPOSE OF PRESCRIPTION MEDICATIONS Please use one of the following methods to safely dispose of your unused medications. 1.Use a drug disposal kit: the drug disposal pouch allows you to safely discard your old and unused drugs. Ask your nurse to give you one when you are discharged.2.Visit a local take-back location: Many local pharmacies and police departments have programs that collect old and unwanted prescription drugs. Call your local pharmacy or go to http://bit.[employer]/0I2Br3f to find one close to you.3.Make use of household items: Use cat litter or old coffee grounds to dispose medications if other options are not available. Mix your drugs with these household products, seal them in an airtight container and throw it into the garbage. Call [facility]: [phone] to be sure your drugs can be disposed of in this way. Some medicines may require a different approach.4.Never flush your medications down the toilet. IF YOU HAVE BEEN PRESCRIBED AN OPIOIDS FOR PAIN If you have been prescribed an opioid (such as hydrocodone, oxycodone or morphine), it is critical to understand the possible side effects and risks of opioid pain medications. Even when taken as directed, opioids can have several side effects including: Tolerance, meaning you might need to take more of a medication for the same pain relief. Nausea, vomiting and/or constipation. Sleepiness, dizziness, dry mouth, confusion, depression or itching. Physical dependence, meaning you have withdrawal symptoms when a medication is stopped ? this can develop within a few days. KNOW YOUR RESPONSIBILITIES It is important to know exactly how much and how often to take the opioid pain medications you are prescribed. Never take opioids in higher amounts or more often than prescribed. Do not combine opioids with alcohol or other drugs that cause drowsiness, such as benzodiazepines, also known as benzos, including diazepam and alprazolam, muscle relaxants or sleep aids. Never sell or share prescription opioids. This is illegal. Store opioids in a secure place and out of reach of others (including children, family, friends and visitors). The last page(s) of this document has been signed and retained as a CHART COPY Signatures Patient Education Materials Abdominal Pain Medication Leaflets My discharge plan and instructions have been reviewed and explained to me and IPEREZ ELIZABETH A understand my current condition and have read and understand these discharge instructions. I have received a written copy of the plan/instructions. If I have questions, I am aware that I should contact my doctor. Patient/Medical Technologist Prn Signature: Date/Time: Relationship to Patient: Witness Name/Signature: Date/Time: [facility] 06-10-2024 Note ADDENDUM ADDENDUM: A 5 mm right lower lobe nodule. A 12 month follow-up may be considered in a high risk patient Interpreted by: Cas Lucio MD Preliminary Report By: Cas Lucio MD Electronically signed By Cas Lucio MD Dictated Date: 06/10/2024 2:33:41 PM Prelim Date: 06/10/2024 2:34:00 PM Sign Date: 06/10/2024 2:34:00 PM Ordering Provider: ZOHAIB RUST ORIGINAL EXAMINATION: CT OF THE ABDOMEN AND PELVIS WITH CONTRAST06/10/2024 1:45 pm TECHNIQUE: CT of the abdomen and pelvis was performed with the administration of intravenous contrast. Multiplanar reformatted images are provided for review. Automated exposure control, iterative reconstruction, and/or weight based adjustment of the mA/kV was utilized to reduce the radiation dose to as low as reasonably achievable. COMPARISON: None HISTORY: ORDERING SYSTEM PROVIDED HISTORY: Reason for Exam: lt sided abd pain, bloating, constipation. nausea at times. pain FINDINGS: Scarring seen in the left lower lobe. A subpleural nodule in the right lower lobe measures 5 mm on image 18. Other small subpleural nodules visualized... There is no visible pleural or pericardial effusion. The heart is normal in size. 2.5 cm lobulated hypodense lesion measuring 2.5 x 2 cm in posterior right lobe of liver near dome of diaphragm is likely a cyst or hemangioma, measuring 5 Hounsfield units. No other focal liver lesion. No intrahepatic biliary dilatation. The spleen, adrenal glands, and pancreas are within normal limits. The gallbladder shows hyperdense content within measuring 1 cm with central calcification suggestive of cholelithiasis. No pericholecystic fluid or gallbladder wall thickening. The kidneys enhance symmetrically. Bilateral subcentimeter hypodensities are too small to characterize but statistically simple cysts. No evidence of left hydronephrosis. Punctate 2 mm right upper pole calculus without obstruction. Mild prominence of right pelvicalyceal system, visualized proximal ureter is not dilated. No evidence of perinephric stranding. Irregular appearance of 2nd part of duodenum with eccentric wall thickening may be related to under distension. The large and small bowel demonstrate no obstruction. The appendix is not visualized. There is no pericecal inflammation. No free intraperitoneal fluid or gas is identified. The aorta is normal in caliber. There is mild atherosclerosis of the larger arteries. There is no lymphadenopathy. The pelvic structures are grossly unremarkable. No filling defects seen in the urinary bladder. The abdominal wall is unremarkable. There is no fracture or aggressive osseous lesion. Degenerative changes are present in the spine. IMPRESSION: 1. Cholelithiasis. No evidence of pericholecystic fluid or gallbladder wall thickening. 2. Right-sided nonobstructing punctate upper pole renal calculus. Mild prominence of right pelvicalyceal system is likely physiological. 3. Irregular appearance of 2nd part of duodenum with eccentric wall thickening which may be related to under distension. Suggested correlation with clinical history and further evaluation with endoscopy if required. . I have personally reviewed the images of this examination and agree with the resident's findings and interpretation. Interpreted by: Cas Lucio MD Preliminary Report By: Manuel Clark Electronically signed By Cas Lucio MD Dictated Date: 06/10/2024 1:49:23 PM Prelim Date: 06/10/2024 2:13:03 PM Sign Date: 06/10/2024 2:13:03 PM [facility] History of Presen t illness Narrative Radiology Service Progress Note PATIENT NAME: Mirna Todd DATE OF SERVICE: April 14, 2024 TIME: 12:59 PM PATIENT IDENTITY VERIFICATION COMPLETED USING TWO (2) IDENTIFIERS: Name and Date of confirmed by patient verbally. FALL SCREENING: Has the patient had 2 falls in the last year or 1 fall with injury or currently using an Ambulatory Assistive Device (Walker, Cane, Wheelchair, Crutches, etc.)? No PATIENT GENDER DATA: Female. status: : No status: NO. PATIENT RELEVANT IMPLANT DATA REVIEWED: Yes PATIENT PRESENTS WITH AN IMPLANTABLE OR ATTACHED LACQUER MAKER: No RADIOLOGY DEPARTMENT: General X-ray: Exam(s) Completed: Chest X-Ray PERIPHERAL IV DATA: Not applicable SIGNED BY: RT Daniel(R) April 14, 2024 12:59 PM documented in this encounter [facility] 04-14-2024 History of Presen t illness Narrative This note was created using [employer]. Subjective Mirna Todd is a 54 year old female. HPI 54-year-old female presents for cough, chest congestion, postnasal drainage, sore throat, hoarse voice for 2 to 3 weeks. Patient states that she started getting sick about 2 to 3 weeks ago. She states that she has a dry cough, but feels very congested in her chest and throat. She states she feels like she has mucus stuck in her throat. She feels postnasal drainage, but states that her nose does not feel congested. She has not had a runny nose or nasal congestion. She does have a little bit of sore throat and hoarse voice. She has not had any fevers. No chest pain or shortness of breath. She has taken Mucinex, which has not really helped. No sick contacts that she is aware of. 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 MEDICATIONS mv-min/iron/folic/calcium/vitK (WOMEN'S MULTIVITAMIN ORAL) Take by mouth. vibegron (GEMTESA) 75 mg tablet Take 75 mg by mouth once daily. benzonatate (TESSALON PERLES) 100 mg capsule Take 1 capsule by mouth three times daily as needed for cough. (Patient not taking: No sig reported) oxybutynin XL (DITROPAN XL) 5 mg 24 hr tablet (Patient not taking: No sig reported) PROGESTERONE MICRONIZED ORAL Take by mouth. (Patient not taking: No sig reported) PARoxetine (PAXIL) 20 mg tablet Take 10 mg by mouth once daily. (Patient not taking: Reported on 05/11/2023) FAMILY HISTORY Problem Relation Age of Onset Prostate Cancer Father Diabetes Paternal Grandmother Heart Paternal Grandmother Social History Tobacco Use Smoking status: Former Types: Cigarettes Quit date: 07/02/2014 Years since quittin.7 Smokeless tobacco: Never Tobacco comments: socially Substance Use Topics Alcohol use: Yes Comment: OCCASIONALLY Drug use: No Review of Systems Constitutional: Negative for chills and fever. HENT: Positive for postnasal drip and sore throat. Negative for congestion and ear pain. Respiratory: Positive for cough. Negative for shortness of breath. Cardiovascular: Negative for chest pain. Gastrointestinal: Negative for diarrhea and vomiting. Objective BP 134/72 Pulse 102 Temp 36.9 C (98.4 F) Resp 16 Wt 58.6 kg (129 lb 3 oz) LMP 11/05/2016 SpO2 98% Physical Exam Vitals and nursing note reviewed. Constitutional: General: She is not in acute distress. Appearance: Normal appearance. She is not toxic-appearing. HENT: Right Ear: Tympanic membrane and ear canal normal. Left Ear: Tympanic membrane and ear canal normal. Nose: Nose normal. Mouth/Throat: Mouth: Mucous membranes are moist. Pharynx: Posterior oropharyngeal erythema present. No oropharyngeal exudate. Tonsils: No tonsillar exudate or tonsillar abscesses. 1+ on the right. 1+ on the left. Eyes: Conjunctiva/sclera: Conjunctivae normal. Cardiovascular: Rate and Rhythm: Normal rate and regular rhythm. Pulmonary: Effort: Pulmonary effort is normal. Breath sounds: Normal breath sounds. No wheezing, rhonchi or rales. Lymphadenopathy: Cervical: Cervical adenopathy present. Left cervical: Superficial cervical adenopathy present. Neurological: Mental Status: She is alert. Assessment and Plan ASSESSMENT/PLAN: 1. Acute cough - ICD9: 786.2, ICD10: R05.1 (primary diagnosis) - XR CHEST 2V FRONTAL/LAT-no acute findings. -Suspect viral illness/postnasal drainage. -Rx for Bromfed 2. Sore throat - ICD9: 462, ICD10: J02.9 - suspect viral - Group A strep molecular testing negative - Discussed supportive care treatment with fluids, rest and analgesia. - The patient should follow up in 3-5 days if symptoms persist or worsen - STREP A MOLECULAR (POC) Diagnosis and treatment plan were discussed and questions were answered to the patient's satisfaction. Pt acknowledged understanding of concepts and follow up plan. Specific signs and symptoms that would indicate the need for higher level of care were discussed in detail warranting prompt ER evaluation. KAMAR Ellis documented in this encounter [facility] 02-06-2024 History of Presen t illness Narrative This note was created using [employer]. Subjective Mirna Todd is a 54 year old female. HPI Presents with a chief complaint of sinus pressure and congestion. She started getting sick about 11 days ago. She was seen on the and had a negative strep at that time. States she was not having a lot of congestion and but the next day started to get sinus pressure and feeling worse. She states this is continued for 5 or 6 days with worsening sinus pressure. Headaches. She denies fever. She has had nausea. No vomiting or diarrhea. Denies cough. She has copious postnasal drip. She has used some Vicks jneo-ghs-ujmsove cold medication. She is also using Aleve. Review of Systems Constitutional: Positive for fatigue. Negative for fever. HENT: Positive for congestion, postnasal drip, rhinorrhea, sinus pressure and sinus pain. Negative for ear discharge, ear pain and sore throat. Respiratory: Negative for cough, shortness of breath and wheezing. Cardiovascular: Negative. Gastrointestinal: Negative. Genitourinary: Negative. Musculoskeletal: Negative. All other systems reviewed and are negative. 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 vibegron (GEMTESA) 75 mg tablet Take 75 mg by mouth once daily. amoxicillin-clavulanate potassium (AUGMENTIN) 875-125 mg per tablet Take 1 tablet by mouth two times a day for 7 days. 14 tablet 0 benzonatate (TESSALON PERLES) 100 mg capsule Take 1 capsule by mouth three times daily as needed for cough. (Patient not taking: No sig reported) 14 capsule 0 oxybutynin XL (DITROPAN XL) 5 mg 24 hr tablet (Patient not taking: No sig reported) PROGESTERONE MICRONIZED ORAL Take by mouth. (Patient not taking: No sig reported) PARoxetine (PAXIL) 20 mg tablet Take 10 mg by mouth once daily. (Patient not taking: Reported on 05/11/2023) No current facility-administered medications for this visit. PAST SURGICAL HISTORY Procedure Laterality Date NONE FAMILY HISTORY Problem Relation Age of Onset Prostate Cancer Father Diabetes Paternal Grandmother Heart Paternal Grandmother Social History Tobacco Use Smoking status: Former Types: Cigarettes Quit date: 07/02/2014 Years since quittin.6 Smokeless tobacco: Never Tobacco comments: socially Substance Use Topics Alcohol use: Yes Comment: OCCASIONALLY Drug use: No Objective BP 132/84 Pulse 95 Temp 36.6 C (97.9 F) Resp 21 Wt 58.8 kg (129 lb 10.1 oz) LMP 11/05/2016 SpO2 98% Physical Exam Vitals reviewed. Constitutional: Appearance: Normal appearance. HENT: Head: Normocephalic and atraumatic. Right Ear: Tympanic membrane, ear canal and external ear normal. Left Ear: Tympanic membrane, ear canal and external ear normal. Nose: Congestion present. Right Sinus: Frontal sinus tenderness present. Left Sinus: Frontal sinus tenderness present. Mouth/Throat: Mouth: Mucous membranes are moist. Pharynx: Oropharynx is clear. Cardiovascular: Rate and Rhythm: Normal rate and regular rhythm. Heart sounds: Normal heart sounds. Pulmonary: Effort: Pulmonary effort is normal. Breath sounds: Normal breath sounds. Musculoskeletal: Cervical back: Neck supple. Lymphadenopathy: Cervical: No cervical adenopathy. Skin: General: Skin is warm and dry. Findings: No rash. Neurological: Mental Status: She is alert. Assessment and Plan ASSESSMENT/PLAN: 1. Acute non-recurrent frontal sinusitis - ICD9: 461.1, ICD10: J01.10 - Will begin treatment with Augmentin 875 mg PO BID for 7 days - Supportive care with plenty of fluids, rest, and analgesia prn. - Follow up in 3-5 days if symptoms persist or worsen. Emely Scott PA-C documented in this encounter [facility] 01-31-2024 History of Presen t illness Narrative This note was created using [employer]. Subjective Mirna Todd is a 54 year old female. HPI 54-year-old female presents for sore throat, ear pressure and pain for 5 days. Patient states started getting sore throat and some postnasal drainage about 5 days ago. She has not really had runny nose or sinus congestion. No fever. No cough. No sick contacts that she is aware of. States that her throat is sore and she feels like she has pressure in her ears. No vomiting or diarrhea. Still eating and drinking. Has been taking Motrin which has helped. 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 MEDICATIONS mv-min/iron/folic/calcium/vitK (WOMEN'S MULTIVITAMIN ORAL) Take by mouth. vibegron (GEMTESA) 75 mg tablet Take 75 mg by mouth once daily. benzonatate (TESSALON PERLES) 100 mg capsule Take 1 capsule by mouth three times daily as needed for cough. (Patient not taking: No sig reported) oxybutynin XL (DITROPAN XL) 5 mg 24 hr tablet (Patient not taking: No sig reported) PROGESTERONE MICRONIZED ORAL Take by mouth. (Patient not taking: No sig reported) PARoxetine (PAXIL) 20 mg tablet Take 10 mg by mouth once daily. (Patient not taking: Reported on 05/11/2023) FAMILY HISTORY Problem Relation Age of Onset Prostate Cancer Father Diabetes Paternal Grandmother Heart Paternal Grandmother Social History Tobacco Use Smoking status: Former Types: Cigarettes Quit date: 07/02/2014 Years since quittin.5 Smokeless tobacco: Never Tobacco comments: socially Substance Use Topics Alcohol use: Yes Comment: OCCASIONALLY Drug use: No Review of Systems Constitutional: Negative for chills and fever. HENT: Positive for ear pain, postnasal drip and sore throat. Negative for congestion. Respiratory: Negative for cough and shortness of breath. Cardiovascular: Negative for chest pain. Gastrointestinal: Negative for diarrhea and vomiting. Objective BP 135/89 Pulse 96 Temp 37.1 C (98.8 F) Resp 18 Wt 58.8 kg (129 lb 10.1 oz) LMP 11/05/2016 SpO2 99% Physical Exam Vitals and nursing note reviewed. Constitutional: General: She is not in acute distress. Appearance: Normal appearance. She is not toxic-appearing. HENT: Right Ear: Tympanic membrane and ear canal normal. Left Ear: Tympanic membrane and ear canal normal. Nose: Nose normal. Mouth/Throat: Mouth: Mucous membranes are moist. Pharynx: Uvula midline. Posterior oropharyngeal erythema present. No oropharyngeal exudate. Tonsils: No tonsillar exudate or tonsillar abscesses. 1+ on the right. 1+ on the left. Eyes: Conjunctiva/sclera: Conjunctivae normal. Cardiovascular: Rate and Rhythm: Normal rate and regular rhythm. Pulmonary: Effort: Pulmonary effort is normal. Breath sounds: Normal breath sounds. Lymphadenopathy: Cervical: No cervical adenopathy. Neurological: Mental Status: She is alert. Assessment and Plan ASSESSMENT/PLAN: 1. Sore throat - ICD9: 462, ICD10: J02.9 - suspect viral - Group A strep molecular testing negative - Discussed supportive care treatment with fluids, rest and analgesia. - STREP A MOLECULAR (POC) Diagnosis and treatment plan were discussed and questions were answered to the patient's satisfaction. Pt acknowledged understanding of concepts and follow up plan. Specific signs and symptoms that would indicate the need for higher level of care were discussed in detail warranting prompt ER evaluation. KAMAR Ellis documented in this encounter [facility] 09-16-2023 History of Presen t illness Narrative Images from the original note were not included. Subjective Came with complaints of neck pain on the left side. Patient says this been going on for about 2 weeks. Patient says it is getting better. Says she is able to turn her head with more range of motion. Denies any decrease in range of motion of her shoulder. Denies any injuries. Denies any shortness of breath chest pain pressure or discomfort. Denies any numbness or tingling down the left arm. The history is provided by the patient. No automotive parts interpreter was used. Neck Pain Review of Systems Constitutional: Negative. Musculoskeletal: Positive for neck pain. Skin: Negative. Objective Physical Exam Constitutional: Appearance: Normal appearance. Pulmonary: Effort: Pulmonary effort is normal. Musculoskeletal: Arms: Comments: Tender in the area marked above when palpated. Does feel stiff. Neurological: Mental Status: She is alert. 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 MEDICATIONS cyclobenzaprine (FLEXERIL) 10 mg tablet Take 1 tablet by mouth two times a day as needed for muscle spasm for up to 7 days. mv-min/iron/folic/calcium/vitK (WOMEN'S MULTIVITAMIN ORAL) Take by mouth. vibegron (GEMTESA) 75 mg tablet Take 75 mg by mouth once daily. benzonatate (TESSALON PERLES) 100 mg capsule Take 1 capsule by mouth three times daily as needed for cough. (Patient not taking: No sig reported) oxybutynin XL (DITROPAN XL) 5 mg 24 hr tablet (Patient not taking: No sig reported) PROGESTERONE MICRONIZED ORAL Take by mouth. (Patient not taking: No sig reported) PARoxetine (PAXIL) 20 mg tablet Take 10 mg by mouth once daily. (Patient not taking: Reported on 05/11/2023) FAMILY HISTORY Problem Relation Age of Onset Prostate Cancer Father Diabetes Paternal Grandmother Heart Paternal Grandmother Social History Tobacco Use Smoking status: Former Types: Cigarettes Quit date: 07/02/2014 Years since quittin.2 Smokeless tobacco: Never Tobacco comments: socially Substance Use Topics Alcohol use: Yes Comment: OCCASIONALLY Drug use: No ASSESSMENT/PLAN: 1. Stiff neck - ICD9: 723.5, ICD10: M43.6 - CYCLOBENZAPRINE 10 MG TABLET Educated about proper use of medication supportive therapies. Educated that Flexeril will make her drowsy. Jamar Morrison APRN.CDC ASSOCIATE documented in this encounter [facility] 09-03-2023 Instructions Krys Eng APRN.PORTER - 09/03/2023 1:12 PM EDT ASSESSMENT/PLAN: 1. Upper respiratory virus - ICD9: 465.9, ICD10: J06.9 - Discussed viral etiology and rationale for treatment. - Symptomatic treatment with prn analgesia - Supportive care with fluids and rest - The patient may also use OTC decongestants prn, OTC cough and cold meds as needed, and warm salt water gargles, throat lozenges and/or OTC throat spray as needed. - Offered RX cough suppressant, patient declined - Follow up in 3-5 days if symptoms persist or sooner if worsening of symptoms E [employer] Student TEACHING PROVIDER (Physician/PA/SEED CORE OPERATOR) NOTE OF PERSONAL INVOLVEMENT IN CARE: I have personally seen and examined the patient and performed the medical decision-making components. I have reviewed the Advanced Practice Registered Nurse (SEED CORE OPERATOR) Student's documentation and verified the findings in the note as written. Any additions or changes are noted in bold/italics. Signature: Krys Eng Date: 09/03/2023 Time: 1:12 PM documented in this encounter [facility] 09-03-2023 History of Presen t illness Narrative This note was created using [employer]. Subjective Mirna Todd is a 53 year old female. Patient presents with one week of sore throat, congestion, cough, and fatigue. Per patient, she felt much better yesterday, but then her cough returned today. All of her starting symptoms have improved other than the persistent cough and some fatigue. She denies fever, nausea, vomiting, chest pain, or shortness of breath. She has been taking OTC cold medications with moderate relief of symptoms. The history is provided by the patient. Review of Systems Constitutional: Positive for fatigue. Negative for chills, diaphoresis and fever. HENT: Positive for congestion (resolved) and sinus pressure (resolved). Negative for ear discharge, ear pain, postnasal drip, sinus pain and sore throat. Respiratory: Positive for cough. Negative for shortness of breath and wheezing. Cardiovascular: Negative for chest pain. Gastrointestinal: Negative for diarrhea, nausea and vomiting. Neurological: Negative for headaches. All other systems reviewed and are negative. 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 MEDICATIONS mv-min/iron/folic/calcium/vitK (WOMEN'S MULTIVITAMIN ORAL) Take by mouth. vibegron (GEMTESA) 75 mg tablet Take 75 mg by mouth once daily. benzonatate (TESSALON PERLES) 100 mg capsule Take 1 capsule by mouth three times daily as needed for cough. (Patient not taking: No sig reported) oxybutynin XL (DITROPAN XL) 5 mg 24 hr tablet (Patient not taking: No sig reported) PROGESTERONE MICRONIZED ORAL Take by mouth. (Patient not taking: No sig reported) PARoxetine (PAXIL) 20 mg tablet Take 10 mg by mouth once daily. (Patient not taking: Reported on 05/11/2023) cyclobenzaprine (FLEXERIL) 10 mg tablet Take 1 tablet by mouth three times daily as needed for Muscle Spasm. (Patient not taking: Reported on 05/11/2023) FAMILY HISTORY Problem Relation Age of Onset Prostate Cancer Father Diabetes Paternal Grandmother Heart Paternal Grandmother Social History Tobacco Use Smoking status: Former Types: Cigarettes Quit date: 07/02/2014 Years since quittin.1 Smokeless tobacco: Never Tobacco comments: socially Substance Use Topics Alcohol use: Yes Comment: OCCASIONALLY Drug use: No Physical Exam Vitals reviewed. Constitutional: General: She is not in acute distress. Appearance: Normal appearance. She is normal weight. She is not ill-appearing or toxic-appearing. HENT: Right Ear: Tympanic membrane, ear canal and external ear normal. No swelling or tenderness. There is no impacted cerumen. Tympanic membrane is not perforated, erythematous, retracted or bulging. Left Ear: Tympanic membrane, ear canal and external ear normal. No swelling or tenderness. There is no impacted cerumen. Tympanic membrane is not perforated, erythematous, retracted or bulging. Nose: Nose normal. No congestion. Right Sinus: No maxillary sinus tenderness or frontal sinus tenderness. Left Sinus: No maxillary sinus tenderness or frontal sinus tenderness. Mouth/Throat: Mouth: Mucous membranes are moist. Pharynx: Oropharynx is clear. Uvula midline. No pharyngeal swelling, oropharyngeal exudate, posterior oropharyngeal erythema or uvula swelling. Tonsils: No tonsillar exudate or tonsillar abscesses. Cardiovascular: Rate and Rhythm: Regular rhythm. Pulmonary: Effort: Pulmonary effort is normal. No respiratory distress. Breath sounds: Normal breath sounds. No wheezing. Chest: Chest wall: No tenderness. Neurological: General: No focal deficit present. Mental Status: She is alert and oriented to person, place, and time. Mental status is at baseline. Psychiatric: Mood and Affect: Mood normal. Behavior: Behavior normal. Thought Content: Thought content normal. Judgment: Judgment normal. Assessment and Plan ASSESSMENT/PLAN: 1. Upper respiratory virus - ICD9: 465.9, ICD10: J06.9 - Discussed viral etiology and rationale for treatment. - Symptomatic treatment with prn analgesia - Supportive care with fluids and rest - The patient may also use OTC decongestants prn, OTC cough and cold meds as needed, and warm salt water gargles, throat lozenges and/or OTC throat spray as needed. - Offered RX cough suppressant, patient declined - Follow up in 3-5 days if symptoms persist or sooner if worsening of symptoms [employer] Student TEACHING PROVIDER (Physician/PA/SEED CORE OPERATOR) NOTE OF PERSONAL INVOLVEMENT IN CARE: I have personally seen and examined the patient and performed the medical decision-making components. I have reviewed the Advanced Practice Registered Nurse (SEED CORE OPERATOR) Student's documentation and verified the findings in the note as written. Any additions or changes are noted in bold/italics. Signature: Krys Eng Date: 09/03/2023 Time: 1:12 PM documented in this encounter [facility] 05-13-2023 Miscellaneous Notes Patient notified of results, verbalized understanding of instructions given. Sylvie Pérez MA Please reach out to patient and inform that urine culture revealed bacterial growth. The antibiotic that was selected is appropriate. She needs to follow up with her PCP to ensure the blood in urine has resolved. documented in this encounter [facility] 05-11-2023 Instructions Yanet Farrar APRN.PORTER - 05/11/2023 12:19 PM EDT Urine will be sent off for culture Start Macrobid, take with food. May use Pyridium as needed for pain. If you develop vaginal yeast symptoms may take diflucan. Follow up with PCP or urologist in 2 weeks to ensure blood has cleared. Follow up as needed. documented in this encounter [facility] 05-11-2023 History of Presen t illness Narrative This is a 53 year old female who presents today with: Patient presents with: UTI: Pain and frequency/ urgency with urination HISTORY OF PRESENT ILLNESS: Mirna Todd is a 53 year old female. Patient presents with: UTI: Pain and frequency/ urgency with urination Here for increased urinary frequency and urgency. Started 3 days ago. Burning noted at the end of urination. No abdominal or flank pain, fever or chills. Following with urology, Dr. De Paz for increased frequency. 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 MEDICATIONS Current Outpatient Medications Medication Sig mv-min/iron/folic/calcium/vitK (WOMEN'S MULTIVITAMIN ORAL) Take by mouth. vibegron (GEMTESA) 75 mg tablet Take 75 mg by mouth once daily. benzonatate (TESSALON PERLES) 100 mg capsule Take 1 capsule by mouth three times daily as needed for cough. (Patient not taking: No sig reported) oxybutynin XL (DITROPAN XL) 5 mg 24 hr tablet (Patient not taking: No sig reported) PROGESTERONE MICRONIZED ORAL Take by mouth. (Patient not taking: No sig reported) PARoxetine (PAXIL) 20 mg tablet Take 10 mg by mouth once daily. (Patient not taking: Reported on 05/11/2023) cyclobenzaprine (FLEXERIL) 10 mg tablet Take 1 tablet by mouth three times daily as needed for Muscle Spasm. (Patient not taking: Reported on 05/11/2023) No current facility-administered medications for this visit. FAMILY HISTORY Problem Relation Age of Onset Prostate Cancer Father Diabetes Paternal Grandmother Heart Paternal Grandmother Social History Tobacco Use Smoking status: Former Types: Cigarettes Quit date: 07/02/2014 Years since quittin.8 Smokeless tobacco: Never Tobacco comments: socially Substance Use Topics Alcohol use: Yes Comment: OCCASIONALLY Drug use: No REVIEW OF SYSTEMS GENERAL: No weight loss, malaise or fevers/chills HEENT: Negative for frequent or significant headaches, No changes in hearing or vision. NECK: Negative for lumps, goiter, pain and significant neck swelling RESPIRATORY: Negative for cough, hemoptysis, wheezing, dyspnea or shortness of breath CARDIOVASCULAR: Negative for chest pain, leg swelling, orthopnea, or palpitations GI: No nausea, vomiting, or diarrhea/constipation. No hematochezia/melena. No heartburn or reflux symptoms. : No history of dysuria, frequency or incontinence MUSCULOSKELETAL: Negative for joint pain or swelling. SKIN: Negative for lesions, rash, and itching ENDOCRINE: Negative for cold or heat intolerance, polyuria, polydipsia and goiter NEURO: No history of headaches, syncope, paralysis, seizures or tremors MOOD: Negative for depression, anxiety, or suicidal ideation. EXAM: BP 112/80 Pulse 81 Temp 36.4 C (97.5 F) Resp 16 Wt 59.4 kg (131 lb) LMP 11/05/2016 SpO2 98% PHYSICAL EXAM: General Appearance: Well appearing, alert, in no acute distress, well-hydrated, well nourished. Skin: Skin color, texture, turgor normal, no suspicious rashes or lesions. Head: Normocephalic, no masses, lesions, tenderness or abnormalities. Eyes: Anicteric sclera. Extraocular movements are intact. Abdomen: Abdomen soft. Bowel sounds normal. No masses, organomegaly, Negative CVA tenderness. + Suprapubic fullness noted. Extremities: No deformities, edema, skin discoloration, clubbing or cyanosis. Good capillary refill. Peripheral Pulses: Normal, Capillary refill <2secs, strong peripheral pulses, Pulses palpable. Neurologic: Gait normal. Sensation grossly intact. UA: + Moderate blood, protein, leukocytes. ASSESSMENT/PLAN: 1. Acute cystitis with hematuria - ICD9: 595.0, ICD10: N30.01 (primary diagnosis) - Start Macrobid, take as directed. - Urine will be sent off for culture. - Increase water intake. - May use Pyridium as needed for pain. - Follow-up with PCP or urologist in 2 weeks to ensure that blood has cleared. - NITROFURANTOIN MONOHYDRATE & MACROCRYSTAL 100 MG ORAL CAP - PHENAZOPYRIDINE 200 MG TABLET 2. Urinary frequency - ICD9: 788.41, ICD10: R35.0 - Same plan as #1. - UA DIP, URINE (POC) - URINE CULTURE 3. Vaginal yeast infection - ICD9: 112.1, ICD10: B37.31 - May use Diflucan if vaginal yeast symptoms develop after antibiotic use. - FLUCONAZOLE 150 MG TABLET Follow-up as needed. Discussed treatment plan and patient voices understanding. Patient's questions answered appropriately. Medications and potential side effects were discussed and patient voices understanding. Yanet Farrar APRN.PORTER This note was partially generated using Smart[employer] voice recognition system. Note was reviewed for accuracy. There may be minor misspellings or grammar miscues with Smartbill [employer] voice recognition. documented in this encounter [facility] 01-28-2023 Miscellaneous Notes Patient given results and verbalized understanding of instructions given. Sanjuanita Guevara ----- Message from Edwin Rangel MD sent at 01/28/2023 12:45 PM EDT ----- Chest x-ray was normal and showed no pneumonia. documented in this encounter [facility] 01-27-2023 History of Presen t illness Narrative Images from the original note were not included. This note was created using [employer]. Subjective Mirna Todd is a 53 year old female. HPI 53-year-old female presents for right-sided rib pain from coughing. Patient states she has had a cough since 01/09. States that the cough is improving, but while she was having one of her coughing fits, she felt like she pulled a muscle in her right ribs/chest wall. She wants to make sure she does not have pneumonia or something going on in her lung. She does still have a dry cough, but is improved from a few weeks ago. She tries not to cough due to the pain. No recent fevers. No sore throat. She did have nasal congestion, but this is improving. She denies any chest pain or shortness of breath. States that she just has pain in the right ribs with coughing, sneezing or movement. 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 MEDICATIONS oxybutynin XL (DITROPAN XL) 5 mg 24 hr tablet PROGESTERONE MICRONIZED ORAL Take by mouth. PARoxetine (PAXIL) 20 mg tablet Take 10 mg by mouth once daily. cyclobenzaprine (FLEXERIL) 10 mg tablet Take 1 tablet by mouth three times daily as needed for Muscle Spasm. predniSONE (DELTASONE) 20 mg tablet Take 2 tablets by mouth once daily for 4 days. benzonatate (TESSALON PERLES) 100 mg capsule Take 1 capsule by mouth three times daily as needed for cough. FAMILY HISTORY Problem Relation Age of Onset Prostate Cancer Father Diabetes Paternal Grandmother Heart Paternal Grandmother Social History Tobacco Use Smoking status: Former Types: Cigarettes Quit date: 07/02/2014 Years since quittin.5 Smokeless tobacco: Never Tobacco comments: socially Substance Use Topics Alcohol use: Yes Comment: OCCASIONALLY Drug use: No Review of Systems Constitutional: Negative for chills and fever. HENT: Negative for congestion, ear pain and sore throat. Respiratory: Positive for cough. Negative for shortness of breath. Cardiovascular: Negative for chest pain. Gastrointestinal: Negative for diarrhea and vomiting. Musculoskeletal: Positive for myalgias. Objective BP 120/78 Pulse 71 Temp 36.4 C (97.5 F) Resp 18 Wt 60.8 kg (134 lb) LMP 11/05/2016 SpO2 99% Physical Exam Vitals and nursing note reviewed. Constitutional: General: She is not in acute distress. Appearance: Normal appearance. She is not toxic-appearing. HENT: Right Ear: Tympanic membrane and ear canal normal. Left Ear: Tympanic membrane and ear canal normal. Nose: Nose normal. Mouth/Throat: Mouth: Mucous membranes are moist. Pharynx: No oropharyngeal exudate or posterior oropharyngeal erythema. Eyes: Conjunctiva/sclera: Conjunctivae normal. Cardiovascular: Rate and Rhythm: Normal rate and regular rhythm. Pulmonary: Effort: Pulmonary effort is normal. Breath sounds: Normal breath sounds. Chest: Chest wall: Tenderness present. Comments: Tenderness over right lateral ribs as noted on photo. No crepitation. No deformity. No rash. No bruising Neurological: Mental Status: She is alert. Assessment and Plan ASSESSMENT/PLAN: 1. Acute cough - ICD9: 786.2, ICD10: R05.1 (primary diagnosis) - XR CHEST 2V FRONTAL/LAT 2. Bronchitis - ICD9: 490, ICD10: J40 - Rx for prednisone. Rx for Tessalon Perles. - XR CHEST 2V FRONTAL/LAT -Advised to come in tomorrow for CXR as XR is not available at time of exam. -Offered to start antibiotic today to cover for potential pneumonia versus waiting for chest x-ray results. Patient wants to wait for chest x-ray results. -If CXR + for pneumonia, patient will need treatment with antibiotic. No chronic diseases, doxycycline would be appropriate 3. Chest wall pain - ICD9: 786.52, ICD10: R07.89 -Suspect chest wall strain due to cough. Lungs equal and clear, low suspicion for pneumothorax. -Will come in for CXR tomorrow. -Rx for prednisone and Tessalon Perles. -Recommend OTC Tylenol/Motrin, heat/ice Diagnosis and treatment plan were discussed and questions were answered to the patient's satisfaction. Pt acknowledged understanding of concepts and follow up plan. Specific signs and symptoms that would indicate the need for higher level of care were discussed in detail warranting prompt ER evaluation. KAMAR Ellis documented in this encounter [facility] 01-11-2023 Hospital Discharg e instructions Additional Instructions Please continue to keep yourself well-hydrated and return to the ER should you have any further concerns. I do feel that your symptoms tonight were related to the stimulant which is typically using cold medication to reduce congestion. Therefore please limit this use as this could precipitate further bouts of palpitations. [facility] Work Phone: 01-10-2023 Discharge summary Note Date/Time January 10, 2023 11:29pm [facility] Medical Records Department [address] [place] [address] Emergency Department Summary 01/10/23 MR#: [id number] Acct: [id number] Name: KIMMY TODD Rep #:[id number] : 1970 52 From: Bam Winters DO PCP: Dr. Caitlin Eduardo MD Status:REG ER Location: ED HPI History of Present Illness Chief Complaint: Palpitations Narrative Narrative: Patient is a 52-year-old female with past medical history of anxiety. She states she has been dealing with a "cold" for the past 5 to 7 days. She states that she was seen at urgent care and was tested for strep and also had a grandchild who was sick and was tested for COVID influenza RSV which were all negative. She states this evening she decided to take melatonin and a Vicks nighttime cough and cold medication. She states after doing this she began to feel her heart was racing which then she symptoms worse and with concern she could be having an abnormal heart rhythm or heart attack presents to the ER for evaluation. Patient denies any other ingestions than the [id number] cold and sleep medications [facility] Medical History (Updated 01/10/23 @ 23:[address] Bam Winters DO) Anxiety Headache, migraine Home Medications NK 05/12/22 [History Last Taken Unknown] Allergy/AdvReac Type Severity Reaction Status Date / Time No Known Allergies Allergy Verified 01/10/23 22:58 Social History Smoking Status: Current every day smoker tobacco type: cigarettes ROS ROS ED Constitutional Constitutional ED: Denies chills or fever(s) ENT ENT ED: Reports rhinorrhea and sore throat Cardiovascular Cardiovascular: Reports palpitations and racing heartbeat; Denies chest pain Respiratory/Chest Respiratory/Chest: Reports cough; Denies dyspnea Gastrointestinal Gastrointestinal: Denies abdominal pain, diarrhea, nausea or vomiting Genitourinary Genitourinary ED: Denies dysuria Musculoskeletal Musculoskeletal: Reports myalgias Integumentary Denies rash Neurologic Neurologic: Reports headache(s) Psychiatric Psychiatric: Reports anxiety; Denies suicidal ideation or suicidal thoughts Hematologic/Lymphatic Hematologic/Lymphatic: Denies easy bleeding or easy bruising EXAM Physical Exam Const Vital Signs: 01/10/23 22:56 Temperature 97.4 F L Temperature Source Temporal Pulse Rate 110 H Respiratory Rate 18 Blood Pressure 143/90 H Blood Pressure Mean 107 Pulse Ox 100 Oxygen Delivery Method Room Air Positive well nourished and well developed General Appearance ED: well developed HEENT Reports moist mucous membranes HEENT Narrative: There is cobblestoning the posterior pharynx consistent with sinus drainage without oral lesions tongue or lip swelling airway edema or compromise. No secondary changes to suggest infection in the posterior pharynx Eyes PERRL and EOMs intact bilaterally Neck supple Neck Narrative: Positive anterior cervical lymphadenopathy noted Resp normal respiratory effort and clear to auscultation bilaterally Cardio regular rate and regular rhythm Rate: other Other Details: Radial pulses are plus 2 out of 4 bilaterally are equal and symmetric Extremity normal to inspection Extremity Narrative: No asymmetric edema no pitting edema negative Homans' sign bilaterally Neuro oriented x3, CN's II-XII intact bilaterally and no sensory deficits noted Sensorium / Orientation: alert Psych Psych Narrative: Patient has a nervous/anxious affect without homicidal or suicidal ideations Skin no rashes or lesions noted MDM MDM MDM Narrative Medical decision making narrative: Patient presented to the ER to slightly tachycardic but her EKG showed normal sinus rhythm at 84 after she was allowed to relax for a few minutes. She reported heart racing and palpitations but her exam and EKG displayed normal sinus rhythm without ectopy or dysrhythmia. The patient reports taking a sleep medication as well as cough and cold medication which typically has a stimulant such as dextromethorphan pseudoephedrine or phenylephrine to help with decongestion. I feel this is the main culprit of her sensation which was worsened by her anxiety. At this time vitals are stable and EKG does not show any type of acute changes. We discussed possible blood work and IV hydration torule out underlying electrolyte or blood volume cause as the cause of her symptoms. However patient states she feels much better at this time knowing herEKG is normal and would like to be discharged. Therefore as patient has stable vitals without signs of acute cardiac injury or dysrhythmia she is otherwise safe for discharge Discharge Plan Triage Chief Complaint: Palpitations ED Provider: Bam Winters Dx/Rx/DC Orders Clinical Impression: Palpitations, Adverse drug reaction, Acute upper respiratory infection Prescriptions: No Action NK Primary Care Provider: Caitlin Eduardo Referrals: Caitlin Eduardo MD [Primary Care Provider] - Activity Restrictions/Additional Instructions: Please continue to keep yourself well-hydrated and return to the ER should you have any further concerns. I do feel that your symptoms tonight were related tothe stimulant which is typically using cold medication to reduce congestion. Therefore please limit this use as this could precipitate further bouts of palpitations. Disposition Disposition: Home, Self Care What to do if you have Problems For any increased pain, shortness of breath, bleeding, nausea or vomiting, chestpain, or any unexpected problems, contact your Primary Care Provider. Call [facility] ([phone]) or report to the closest Emergency Room. Call 911 if necessary. 01/10/23 [id number] <Electronically signed by Bam Winters DO> Cosigner Signature (if applicable): CC: Dr. Caitlin Eduardo MD ~ Signed [facility] Work Phone: 1(393) 603-223902-22-2023 History of Present illness Narrative* Michaela Rouse APRN.CDC ASSOCIATE - 01/09/2023 2:29 PM EST This note was created using [employer]. Subjective Mirna Todd is a 52 year old female. 52 year old female with no PMH presents for illness. Acute onset Saturday morning States she woke up with a headache +sore throat +burning of sore throat +cough Denies SOB or dyspnea Denies abdominal pain. Denies N/V/D Denies skin rash or lesions. Used Tylenol Used [facility] [place] Cold and Advil Endorses that her grandson who she cares for has been sick as well. The history is provided by the patient. No automotive parts interpreter was used. Sore Throat This is a new problem. The current episode started in the past 7 days. The problem has been unchanged. Neither side of throat is experiencing more pain than the other. The maximum temperature recorded prior to her arrival was 100.4 - 100.9 F. The fever has been present for Less than 1 day. The painis at a severity of 5/10. The pain is moderate. Associated symptoms include congestion and headaches. Pertinent negatives include no abdominal pain, coughing, diarrhea, drooling, ear discharge, ear pain, hoarse voice, plugged ear sensation, neck pain, shortness of breath, stridor, swollen glands, trouble swallowing or vomiting. She has had no exposure to strep or mono. She has tried acetaminophenand NSAIDs for the symptoms. The treatment provided mild relief. 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 MEDICATIONS oxybutynin XL (DITROPAN XL) 5 mg 24 hr tablet (Patient not taking: Reported on 04/30/2022 ) PROGESTERONE MICRONIZED ORAL Take by mouth. (Patient not taking: Reported on 08/30/2021 ) PARoxetine (PAXIL) 20 mg tablet Take 10 mg by mouth once daily. (Patient not taking: Reported on 08/30/2021 ) cyclobenzaprine (FLEXERIL) 10 mg tablet Take 1 tablet by mouth three times daily as needed for Muscle Spasm. (Patient not taking: Reported on 09/15/2018 ) FAMILY HISTORY Problem Relation Age of Onset Prostate Cancer Father Diabetes Paternal Grandmother Heart Paternal Grandmother Social History Tobacco Use Smoking status: Former Types: Cigarettes Quit date: 07/02/2014 Years since quittin.5 Smokeless tobacco: Never Tobacco comments: socially Substance Use Topics Alcohol use: Yes Comment: OCCASIONALLY Drug use: No Review of Systems Constitutional: Negative for activity change, appetite change, fatigue and fever. HENT: Positive for congestion and sore throat. Negative for drooling, ear discharge, ear pain, hoarse voice, rhinorrhea, sinus pressure, sinus pain and trouble swallowing. Eyes: Negative for photophobia, pain, discharge, redness and itching. Respiratory: Negative for apnea, cough, chest tightness, shortness of breath and stridor. Cardiovascular: Negative for chest pain, palpitations and leg swelling. Gastrointestinal: Negative for abdominal pain, diarrhea and vomiting. Musculoskeletal: Negative for arthralgias, back pain and neck pain. Skin: Negative for color change, pallor, rash and wound. Allergic/Immunologic: Negative for environmental allergies, food allergies and immunocompromised state. Neurological: Positive for headaches. Hematological: Negative for adenopathy. Does not bruise/bleed easily. Psychiatric/Behavioral: Negative for agitation and behavioral problems. Objective BP 132/78 Pulse 74 Temp 37.3 C (99.1 F) (Tympanic) Resp 18 Wt 60.6 kg (133 lb 9.6 oz) LMP12/ SpO2 96% Physical Exam Vitals and nursing note reviewed. Constitutional: General: She is not in acute distress. Appearance: Normal appearance. She is normal weight. She is not ill-appearing, toxic-appearing or diaphoretic. HENT: Head: Normocephalic and atraumatic. Right Ear: Ear canal and external ear normal. Left Ear: Ear canal and external ear normal. Nose: Nose normal. No congestion or rhinorrhea. Mouth/Throat: Mouth: Mucous membranes are moist. Pharynx: Posterior oropharyngeal erythema (1 +enlarged bilateral tonsils. Uvula midline.) present. No oropharyngeal exudate. Eyes: General: Right eye: No discharge. Left eye: No discharge. Extraocular Movements: Extraocular movements intact. Conjunctiva/sclera: Conjunctivae normal. Pupils: Pupils are equal, round, and reactive to light. Cardiovascular: Rate and Rhythm: Normal rate and regular rhythm. Pulses: Normal pulses. Heart sounds: Normal heart sounds. No murmur heard. No friction rub. Pulmonary: Effort: Pulmonary effort is normal. No respiratory distress. Breath sounds: Normal breath sounds. No stridor. No wheezing, rhonchi or rales. Chest: Chest wall: No tenderness. Abdominal: General: Abdomen is flat. There is no distension. Palpations: Abdomen is soft. There is no mass. Tenderness: There is no abdominal tenderness. There is no right CVA tenderness, left CVA tenderness, guarding or rebound. Hernia: No hernia is present. Musculoskeletal: General: No swelling, tenderness, deformity or signs of injury. Normal range of motion. Cervical back: Normal range of motion and neck supple. No rigidity. Right lower leg: No edema. Left lower leg: No edema. Lymphadenopathy: Cervical: No cervical adenopathy. Skin: General: Skin is warm and dry. Capillary Refill: Capillary refill takes less than 2 seconds. Coloration: Skin is not jaundiced or pale. Findings: No bruising, erythema, lesion or rash. Neurological: General: No focal deficit present. Mental Status: She is alert and oriented to person, place, and time. Cranial Nerves: No cranial nerve deficit. Sensory: No sensory deficit. Motor: No weakness. Coordination: Coordination normal. Gait: Gait normal. Psychiatric: Mood and Affect: Mood normal. Behavior: Behavior normal. Thought Content: Thought content normal. Judgment: Judgment normal. Assessment and Plan ASSESSMENT/PLAN: 1. Pharyngitis, unspecified etiology - ICD9: 462, ICD10: J02.9 (primary diagnosis) - suspect viral - Alere Strep Test NEGATIVE, no culture pending - Discussed supportive care treatment with fluids, rest and analgesia. - The patient may also use OTC cough and cold meds as needed, warm salt water gargles, throat lozenges and/or OTC throat spray as needed, and nasal saline gtts and suction prn. - Contagious dz precautions discussed- including considered contagious until on antibiotics for 24 hours - The patient should follow up in 3-5 days if symptoms persist or worsen - Call back if drooling, increased temperature, symptoms of dehydration and/or still sick in one week - STREP A MOLECULAR (POC) 2. URI, acute - ICD9: 465.9, ICD10: J06.9 - Discussed viral etiology and rationale for treatment. - Symptomatic treatment with prn analgesia - Supportive care with fluids and rest - The patient may also use OTC cough and cold meds as needed, warm salt water gargles, throat lozenges and/or OTC throat spray as needed, and nasal saline gtts and suction prn. - Follow up in 3-5 days if symptoms persist or sooner if worsening of symptoms - Declines COVID testing Michaela Rouse APRN.CNP documented in this encounterSt[facility] History of Present illness Narrative* Krys Eng APRN.CNP - 04/30/2022 7:19 PM EDT Subjective Mirna Todd is a 52 year old female who presents for evaluation of a possible bug in her left ear. She reports that she felt a bug fly into her ear while working outside and has since felt like she could feel something in her ear. She denies ear pain, tenderness, or ringing in the ear. Reports that she has not tried anything to remove the bug. The history is provided by the patient. No automotive parts interpreter was used. Ear Problem Pertinent negatives include no ear discharge, headaches, hearing loss, neck pain or rash. Review of Systems HENT: Positive for ear pain. Negative for ear discharge, hearing loss and tinnitus. Musculoskeletal: Negative for neck pain. Skin: Negative for itching and rash. Neurological: Negative for dizziness and headaches. 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 MEDICATIONS oxybutynin XL (DITROPAN XL) 5 mg 24 hr tablet PROGESTERONE MICRONIZED ORAL Take by mouth. PARoxetine (PAXIL) 20 mg tablet Take 10 mg by mouth once daily. cyclobenzaprine (FLEXERIL) 10 mg tablet Take 1 tablet by mouth three times daily as needed for Muscle Spasm. FAMILY HISTORY Problem Relation Age of Onset Prostate Cancer Father Diabetes Paternal Grandmother Heart Paternal Grandmother Social History Tobacco Use Smoking status: Former Smoker Quit date: 07/02/2014 Years since quittin.8 Smokeless tobacco: Never Used Tobacco comment: socially Substance Use Topics Alcohol use: Yes Comment: OCCASIONALLY Drug use: No Objective Physical Exam Vitals and nursing note reviewed. Constitutional: Appearance: Normal appearance. HENT: Left Ear: Hearing, tympanic membrane, ear canal and external ear normal. No decreased hearing noted. No drainage, swelling or tenderness. No foreign body. Skin: General: Skin is warm. Findings: No erythema or rash. Neurological: Mental Status: She is alert and oriented to person, place, and time. ASSESSMENT/PLAN: 1. Abnormal sensation in left ear - ICD9: 388.8, ICD10: H93.8X2 - No foreign body in left ear. 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 I have reviewed the Advanced Practice Registered Nurse (SEED CORE OPERATOR) Student's documentation and verified the findings in the note as written. Any additions or changes are noted in bold/italics. Signature: Krys Eng Date: 04/30/2022 Time: 7:34 PM documented in this encounterSt. [facility] Instructions* Patient Instructions* Nhung Razo - 04/30/2022 7:19 PM EDT ASSESSMENT/PLAN: 1. Abnormal sensation in left ear - ICD9: 388.8, ICD10: H93.8X2 - No foreign body in left ear. [employer] student documented in this encounterSt. [facility] History of Present illness Narrative* Jamar Morrison APRN.CDC ASSOCIATE - 03/28/2022 7:56 PM EDT Images from the original note were not included. Subjective Patient was bite by a dog yesterday. patient said it is swelling a little and causing some pain. pateint denies any other symptoms at this time. Did say she cleaned it right away. Said it was a friends dog and she got in the mist of the dogs fighting. The history is provided by the patient. No automotive parts interpreter was used. Review of Systems Constitutional: Negative. Skin: Negative. Objective Physical Exam Constitutional: Appearance: Normal appearance. Pulmonary: Effort: Pulmonary effort is normal. Skin: General: Skin is warm. Comments: Patient has one small puncture wound from a tooth. Mild amount of swelling around wound. Minimal redness. Neurological: Mental Status: She is alert. 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 MEDICATIONS oxybutynin XL (DITROPAN XL) 5 mg 24 hr tablet amoxicillin-clavulanic acid (AUGMENTIN) 875-125 mg per tablet Take 1 tablet by mouth twice daily for 5 days. PROGESTERONE MICRONIZED ORAL Take by mouth. PARoxetine (PAXIL) 20 mg tablet Take 10 mg by mouth once daily. cyclobenzaprine (FLEXERIL) 10 mg tablet Take 1 tablet by mouth three times daily as needed for Muscle Spasm. FAMILY HISTORY Problem Relation Age of Onset Prostate Cancer Father Diabetes Paternal Grandmother Heart Paternal Grandmother Social History Tobacco Use Smoking status: Former Smoker Quit date: 07/02/2014 Years since quittin.7 Smokeless tobacco: Never Used Tobacco comment: socially Substance Use Topics Alcohol use: Yes Comment: OCCASIONALLY Drug use: No ASSESSMENT/PLAN: 1. Dog bite, initial encounter - ICD9: 879.8, E906.0, ICD10: W54.0XXA Augmentin bid for 5 days. Instructed to keep clean and dry. tetanus updated. patient will follow upif symptoms worsen. Patient was okay with this care plan. Jamar Morrison APRN.CDC ASSOCIATE documented in this encounterSt. [facility]04-[facility] NotePap Smear Specimen AdequacyApril 2021 2:15pmComment.Satisfactory for evaluation. Endocervical and/or squamous metaplasticcells (endocervical component)are present.[facility] A#[id number] Work Phone: Comment on above:Satisfactory for evaluation. Endocervical and/or squamous metaplasticcells (endocervical component)are present.Evaluation + Plan note No data available for this section [facility] Evaluation noteNo assessment information available [facility] Work Phone: Evaluation note* Diagnosis Dog bite, initial encounter- Primary [facility] Diagnosis Abnormal sensation in left ear- Primary documented in this encounter [facility] note* Diagnosis Pharyngitis, unspecified etiology- Primary URI, acute Acute upper respiratory infections of unspecified site [facility]* Diagnosis Acute cough- Primary Bronchitis Bronchitis, not specified as acute or chronic Chest wall pain Painful respiration documented in this encounter [facility] note* Diagnosis Acute cystitis with hematuria- Primary Acute cystitis Urinary frequency Vaginal yeast infection Candidiasis of vulva and vagina [facility]* Diagnosis Upper respiratory virus- Primary Acute upper respiratory infections of unspecified site [facility]* Diagnosis Stiff neck- Primary Torticollis, unspecified [facility]* Diagnosis Sore throat- Primary Acute pharyngitis documented in this encounter [facility] note* Diagnosis Acute non-recurrent frontal sinusitis- Primary documented in this encounter [facility] note* Diagnosis Acute cough- Primary Sore throat Acute pharyngitis Acute cough documented in this encounter [facility] note* Diagnosis Acute cough documented in this encounter [facility] note* Diagnosis Acute cough Bronchitis Bronchitis, not specified as acute or chronic documented in this encounter [facility] note* Diagnosis Urinary frequency- Primary documented in this encounter [facility] note* Diagnosis Acute pain of left knee- Primary documented in this encounter [facility] Purpose Family History No Family History Records Found No data available for this section No Family History Records FoundNo Family History Records FoundNo Family History Records Found Advance Directives No Advanced Directives Records Found Advance Directive Response Recorded Date/ Time Living Will No May 12, 2022 9:36pm Power of Sound Engineering Technician No May 12 9:36pm Advance Directive Response Recorded Date/ Time Living Will No January 11, 2 023 12:14am Power of Sound Engineering Technician No January 11, 2023 12:14am Advance Directive Response Recorded Date/ Time Living Will No January 11, 2 023 1:14am Power of Sound Engineering Technician No January 11, 2023 1:14am Advance Directive Response Recorded Date/ Time Living Will No July 31, 2023 10:24am Power of Sound Engineering Technician No July 10:24am Chief Complaint and Reason for Visit Chief Complaint ENLARGED LYMPH NODES Chief Complaint FOREIGN BODY Chief Complaint FAST HEART RATE Chief Complaint FAST HEART RATE SCREENING Chief Complaint SCREENING CHEST PAIN Additional Source Comments INFORMATION SOURCE (unrecogn ized section and content) DATE CREATED AUTHOR 05/14/2018 [facility] DATE CREATED AUTHOR AUTHOR'S ORGANIZ ATION 06/13/2024 [facility] ([place] DATE CREATED AUTHOR AUTHOR'S ORGANIZ ATION 08/20/2025 [facility] DATE CREATED AUTHOR AUTHOR'S ORGANIZ ATION 09/19/2025 [facility] Goals (unrecognized section and content) Goals may be documented in a n alternate sectionGoals may be documented in an alternate sectionGoals may be documented in an alternate sectionGoals may be documented in an alternate sectionGoals may be documented in an alternate section No data available for this section Source Comments (unrecognize d section and content) In the event this informatio n is protected by the Federal Confidentiality of Alcohol and Drug Abuse Patient Records regulations: The Federal rules restrict any use of the information to criminally investigate or prosecute any alcohol or drug abuse patient.[facility] HospitalIn the event this information is protected by the Federal Confidentiality of Alcohol and Drug Abuse Patient Records regulations: The Federal rules restrict any use of the information to criminally investigate or prosecute any alcohol or drug abuse patient.[facility] HospitalIn the event this information is protected by the Federal Confidentiality of Alcohol and Drug Abuse Patient Records regulations: The Federal rules restrict any use of the information to criminally investigate or prosecute any alcohol or drug abuse patient.[facility] HospitalIn the event this information is protected by the Federal Confidentiality of Alcohol and Drug Abuse Patient Records regulations: The Federal rules restrict any use of the information to criminally investigate or prosecute any alcohol or drug abuse patient.[facility] HospitalIn the event this information is protected by the Federal Confidentiality of Alcohol and Drug Abuse Patient Records regulations: The Federal rules restrict any use of the information to criminally investigate or prosecute any alcohol or drug abuse patient.[facility] HospitalIn the event this information is protected by the Federal Confidentiality of Alcohol and Drug Abuse Patient Records regulations: The Federal rules restrict any use of the information to criminally investigate or prosecute any alcohol or drug abuse patient.[facility] HospitalIn the event this information is protected by the Federal Confidentiality of Alcohol and Drug Abuse Patient Records regulations: The Federal rules restrict any use of the information to criminally investigate or prosecute any alcohol or drug abuse patient.[facility] HospitalIn the event this information is protected by the Federal Confidentiality of Alcohol and Drug Abuse Patient Records regulations: The Federal rules restrict any use of the information to criminally investigate or prosecute any alcohol or drug abuse patient.[facility] HospitalIn the event this information is protected by the Federal Confidentiality of Alcohol and Drug Abuse Patient Records regulations: The Federal rules restrict any use of the information to criminally investigate or prosecute any alcohol or drug abuse patient.[facility] HospitalIn the event this information is protected by the Federal Confidentiality of Alcohol and Drug Abuse Patient Records regulations: The Federal rules restrict any use of the information to criminally investigate or prosecute any alcohol or drug abuse patient.[facility] HospitalIn the event this information is protected by the Federal Confidentiality of Alcohol and Drug Abuse Patient Records regulations: The Federal rules restrict any use of the information to criminally investigate or prosecute any alcohol or drug abuse patient.[facility] HospitalIn the event this information is protected by the Federal Confidentiality of Alcohol and Drug Abuse Patient Records regulations: The Federal rules restrict any use of the information to criminally investigate or prosecute any alcohol or drug abuse patient.[facility] HospitalIn the event this information is protected by the Federal Confidentiality of Alcohol and Drug Abuse Patient Records regulations: The Federal rules restrict any use of the information to criminally investigate or prosecute any alcohol or drug abuse patient.[facility] HospitalIn the event this information is protected by the Federal Confidentiality of Alcohol and Drug Abuse Patient Records regulations: The Federal rules restrict any use of the information to criminally investigate or prosecute any alcohol or drug abuse patient.[facility] the event this information is protected by the Federal Confidentiality of Alcohol and Drug Abuse Patient Records regulations: The Federal rules restrict any use of the information to criminally investigate or prosecute any alcohol or drug abuse patient.[facility] the event this information is protected by the Federal Confidentiality of Alcohol and Drug Abuse Patient Records regulations: The Federal rules restrict any use of the information to criminally investigate or prosecute any alcohol or drug abuse patient.[facility] the event this information is protected by the Federal Confidentiality of Alcohol and Drug Abuse Patient Records regulations: The Federal rules restrict any use of the information to criminally investigate or prosecute any alcohol or drug abuse patient.[facility] Reason for Visit (unrecogniz ed section and content) Reason Comments Dog Bite left forearm x 1 day Reason Comments Ear Problem left, bug in ear x 3 0 mins Reason Comments Sore Throat ST, KEITH, cough and co ngestion x 3 days Reason Comments Musculoskeletal Problem From coughing so much. Right side Reason Comments Results Reason Comments UTI Pain and frequency/ urgency with urination Reason Comments Cough Cough and congestion x 8 days Reason Comments Neck Pain L sided neck stiffne ss x2 weeks Reason Comments Sore Throat Bilateral ear pain, KEITH x5 days Reason Comments Nasal Congestion Fatigue, KEITH, mucus i s green with blood x 1.5 weeks Reason Comments Chest Congestion drainage x 2-3 weeks Reason Comments Urinary Problem Burning, frequency, urgency x 1 week Reason Comments Knee Pain Back side of L knee, area swelling out and warm to touch x 1 day Care Teams (unrecognized sec tion and content) Area Field Person Relationship Specialty Start Date End Date Caitlin Eduardo PCP - General Family Practice 02/15/14 Area Field Person Relationship Specialty Start Date End Date Caitlin Eduardo PCP - General Family Practice 02/15/14 Area Field Person Relationship Specialty Start Date End Date Caitlin Eduardo PCP - General Family Medicine 02/15/14 Team Status: Active Member Role Status Dates No Primary Care Physician Family Provider Active Dr. Caitlin Eduardo MD Primary Care Provider Active Team Status: Inactive Member Role Status Dates Dr. Cailtin Eduardo MD Primary Care Provider Active Dr. Bam Winters , Emergency Provider Active Area Field Person Relationship Specialty Start Date End Date Caitlin Eduardo PCP - General Family Medicine 02/15/14 Area Field Person Relationship Specialty Start Date End Date Caitlin Eduardo PCP - General Family Medicine 02/15/14 Team Status: Inactive Member Role Status Dates Dr. Caitlin Eduardo MD Primary Care Provider Active Dr. Bam Winters , Attending Provider, Emergency Pr ovider Active Team Status: Inactive Member Role Status Dates Dr. Caitlin Eduardo MD Primary Care Prov ider, Attending Provider, Referring Provider Active Area Field Person Relationship Specialty Start Date End Date Caitlin Eduardo PCP - General Family Medicine 02/15/14 Area Field Person Relationship Specialty Start Date End Date Caitlin Eduardo PCP - General Family Medicine 02/15/14 Team Status: Inactive Member Role Status Dates Dr. Caitlin Eduardo MD Primary Care Provider Active Dr. Aroldo Gordon , Emergency Provider Active Area Field Person Relationship Specialty Start Date End Date Caitlin Eduardo PCP - General Family Medicine 02/15/14 Area Field Person Relationship Specialty Start Date End Date Caitlin Eduardo PCP - General Family Medicine 02/15/14 Area Field Person Relationship Specialty Start Date End Date Caitlin Eduardo PCP - General Family Medicine 02/15/14 Area Field Person Relationship Specialty Start Date End Date Caitlin Eduardo PCP - General Family Medicine 02/15/14 Area Field Person Relationship Specialty Start Date End Date Caitlin Eduardo PCP - General Family Medicine 02/15/14 Area Field Person Relationship Specialty Start Date End Date Caitlin Eduardo PCP - General Family Medicine 02/15/14 Area Field Person Relationship Specialty Start Date End Date Caitlin Eduardo PCP General Family Medicine 02/15/14 Area Field Person Relationship Specialty Start Date End Date Caitlin Eduardo PCP - General Family Medicine 02/15/14 FOR RECORDS PERTAINING TO PATIENTS WHO ARE OR HAVE BEEN ENROLLED IN A CHEMICAL DEPENDENCY/SUBSTANCEABUSE PROGRAM, SOME INFORMATION MAY BE OMITTED. This clinical summary was aggregated from multiple sources. Caution should be exercised in using it in the provision of clinical care. This summary normalizes information from multiple sources, and as a consequence, information in this document may materially change the coding, format and clinical context of patient data. In addition, data may be omitted in some cases. CLINICAL DECISIONS SHOULD BE BASED ON THE PRIMARY CLINICAL RECORDS. [facility] [email or web address] [email or web address] provides no warranty or guarantee of the accuracy or completeness of information in this document.
== END | disposition home or self-care (01) ==
PROVIDERS: PCP Family Medicine; Referring Provider Family Medicine; Visit Provider Family Medicine
DX: Z12.31 Encounter for screening mammogram for malignant neoplasm of breast (principal)
CPT/HCPCS: 77063; 77067